=== PATIENT | female | born 1950 | race African-American/Black ===

== ENCOUNTER 2017-06-27 11:23 | Inpatient (IN) ==
[2017-06-27] MEDS ORDERED: methylPREDNISolone SOD SUC 125 MG/2 ML VIAL IV STA (12:01)
[2017-06-27] MEDS ORDERED: CETIRIZINE 10 MG TABLET PO STA (12:01)
[2017-06-27] MEDS ORDERED: FAMOTIDINE 20 MG/2 ML VIAL IV STA (12:01)
[2017-06-27] MEDS ORDERED: methylPREDNISolone SOD SUC 125 MG/2 ML VIAL ONE (12:05)
[2017-06-27] MEDS ORDERED: CETIRIZINE 10 MG TABLET ONE (12:05)
[2017-06-27] MEDS ORDERED: FAMOTIDINE 20 MG/2 ML VIAL IV ONE (12:06)
[2017-06-27 12:08] LABS: Basophils % 0.6 % (0.0-0.8); Eosinophils # 0.5 10*3/uL (0.0-0.87); Eosinophils % 9.6 % (0.00-10.9); Hematocrit 31.8 VOL% (35.7-47.0); Hemoglobin 10.2 GM/DL (12.0-16.0); Immature Granulocytes % 0.8 %; Immature Granulocytes Absolute 0.04 #; Lymphocytes # 1.4 10*3/uL (1.4-4.0); Lymphocytes % 26.5 % (21.3-54.2); Mean Corpuscular HGB Conc 32.1 GM/DL (32-36); Mean Corpuscular Hemoglobin 27 PG (27-34); Mean Corpuscular Volume 82.8 FL (87-102); Monocytes # 0.5 10*3/uL (0.11-0.8); Neutrophils # 2.7 10*3/uL (1.4-7.4); Neutrophils % 52.5 % (38.7-73.9); Platelet Count 291 T/CUMM (130-400); Red Blood Count 3.84 MC/CUMM (3.8-5.5); Red Cell Distribution Width 14.2 % (9.3-17.3); White Blood Count 5.1 T/CUMM (4-12)
--- NOTE | 2017-06-27 12:08 | Emergency Department Note ---
Eron Mendez Brooke, am scribing for, and in the presence of, Luis E Ortiz MD 12:03 . Diana Mendez James D, MD, personally performed the services described in this documentation, ascribed by Vandana Littlejohn in my presence, and it is both accurate and complete . Arrival - Arrival Chief Complaint: Allergic Reaction Stated Complaint: allergic reaction tongue and lips swelling ED Nursing Triage Note: ANGIOEDEMA ONSET THIS MORNING AFTER TAKING HOME MEDS, + DYSPHAGIA Mode of Arrival: Ambulatory Limitations: No Limitations Source: Patient, RN Notes Reviewed Time Seen by Provider: 06/27/17 11:55 - History of Present Illness HPI Narrative: Patient is a 67 year old female who presents to the ED with c/o tongue edema that started this morning. Patient says she got up and took her medications. She says she was talking to her daughter and her daughter told her she wasn't "taking right." Patient says she felt fine then but now feels like her tongue is swollen. She says it is painful to swallow. She also complains of being short of breath. Patient has been scoped, here, in the past. Patient has had a reaction to Lisinopril, in the past, but is no longer taking it. She has PMHx of HTN, depression, migraines, glaucoma, RA, asthma, GERD, and anemia. She does not smoke cigarettes or drink alcohol. Onset (ago): day(s) (1) Allergies/Adverse Reactions: Allergies Allergy/AdvReac Type Severity Reaction Status Date / Time lisinopril Allergy Swelling Verified 06/27/17 11:36 of Lip/Tongue/Throat Home Medications: Home Medications Medication Instructions Recorded Confirmed Type Hydroxychloroquine [Plaquenil] 200 mg PO BID 11/12/16 06/27/17 History Mirtazapine 15 mg PO BEDTIME 11/12/16 06/27/17 History amLODIPine [Norvasc] 10 mg PO DAILY tablet 03/29/17 06/27/17 Rx cloNIDine TAB [Catapres Tab] 0.1 mg PO TID tablet 03/29/17 06/27/17 Rx Aspirin Chew Tab 81 mg PO DAILY 06/27/17 06/27/17 History Metoprolol Succinate 25 mg PO DAILY 06/27/17 06/27/17 History Sertraline [Zoloft] 50 mg PO QAM 06/27/17 06/27/17 History Spironolactone 25 mg PO BID 06/27/17 06/27/17 History Tramadol HCl/Acetaminophen 1 - 2 each PO TID PRN 06/27/17 06/27/17 History [Tramadol-Acetaminophn 37.5-325] Trazodone HCl 150 mg PO BEDTIME 06/27/17 06/27/17 History predniSONE TAB [PredniSONE] 5 mg PO DAILY 06/27/17 06/27/17 History Review of System - Review of System 12 point system: reviewed and no additional remarkable complaints except as stated - Review of System Constitutional: Absent: fever Head/Ears/Nose/Throat: Present: other (tongue edema. Painful to swallow) Respiratory: Present: other (shortness of breath). 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, cataract in left eye.), Glaucoma Endocrine: No history of: Adrenal Disease, Diabetes Mellitus (IDDM), Diabetes Mellitus ( NIDDM), Thyroid Disorder, Endocrine Cancer, Endocrine Problems Rheumatology: History of;: Rheumatoid Arthritis Respiratory: History of: Asthma Gastrointestinal: History of: GERD Musculoskeletal: No history of: Amputation Hematology: History of: Anemia Other: History of: Skin Problems (Patient has vitiligo spots on various spots on body.) - Surgical History Cardiac Surgeries: Sugical HX of: Cardiac Catheterization Thoracic Surgeries: Patient denies;: Organ Transplant, Lobectomy Neurologic Surgeries: Patient denies: Neurologic Surgery HEENT Surgeries: Surgical HX of: Eye Surgery (Right eye), Tonsilectomy & Adenoidectomy Patient denies: Thyroid Surgery Abdominal Surgeries: Patient denies: Abdominal Surgery, Appendectomy, Cholecystectomy, Colonoscopy , Gastric Bypass Surgery, EGD, Hernia Repair Reproductive Surgeries: Surgical HX of;: Dilation and Curettage (Had ectopic in 1976), Hysterectomy Patient denies;: Genitourinary Surgery Orthopedic Surgeries: Patient denies;: Implanted Devices, Orthopedic Surgery, Spinal Surgery, Total Hip Replacement, Total Knee Replacement - Family History Family History: Reports;: Family Diabetes, Family Hypertension Denies;: Family Anesthesia Reaction, Family Cancer, Family Heart Disease, Family Psychiatric Problems, Family Stroke - Social History Smoking Status: Never smoker Exam Vital Signs: Vital Signs Temperature 989.1 F H 06/27/17 12:01 Pulse Rate 83 06/27/17 12:01 Respiratory Rate 16 06/27/17 12:01 Blood Pressure 206/131 06/27/17 12:01 GENERAL: This is a well-nourished well-developed black female in no apparent distress. VITAL SIGNS: Reviewed HEENT: Head is atraumatic and normocephalic. Pupils are equal round react to light. Extraocular movements are intact. Oropharynx is benign with slightly dry mucous membranes. No evidence of plaques or vesicles on the buccal or gingival mucosa. NECK: Neck is soft and supple without tenderness. There are no masses. There is no lymphadenopathy. LUNGS: Lungs are clear to auscultation. Chest rises symmetrically. There is no chest wall tenderness. CV: Heart is regular rate and rhythm without murmurs rubs or gallops. ABDOMEN: Abdomen is soft, nontender to palpation. There are no abdominal abnormal masses palpated. There is no organomegaly. Bowel sounds are present and active. SKIN: Skin is warm and dry. No rash. EXTREMITIES: Patient has full range of motion without tenderness. There is no pedal edema. NEUROLOGIC: Awake alert and oriented. Cranial nerves II through XII are grossly intact. Motor is 5 over 5 in all extremities bilaterally. Course Course Narrative: Patient was given Zyrtec, Solu-Medrol, and Pepcid while in the emergency department. She was also given Apresoline for her hypertension in the emergency department. - Reevaluation(s) Reevaluation #1: Patient does have swelling of her tongue. Time: 13:08 - Consultations Consultation #1: Discussed with hospitalist. Patient will be admitted to their service. Time: 13:30 Results - Labs CBC & BMP: 06/27/17 11:51 06/27/17 11:51 Lab Results: I have reviewed the patients labs Labs: Initial potassium was hemolyzed specimen. This will be repeated. - EKG EKG results: interpreted by ERMD - Impressions EKG: Normal sinus rhythm with rate of 78, ST segment depression inferiorly and laterally. Disposition Clinical Impression: Odynophagia, Essential hypertension, Angioedema of the tongue, UTI (urinary tract infection) Case discussed with: patient Disposition: Still a Patient Condition: Stable Time of Disposition: 13:28
[2017-06-27 12:53] LABS: Apearance,Urine CLEAR (Clear); Bilirubin,Urine Negative (Negative); Blood, Urine Moderate mg/dL (Negative); Glucose,Urine (UA) Negative (Negative); Ketones,Urine Negative (Negative); Nitrite,Urine Negative (Negative); Protein,Urine Negative; RBC,Urine 53 /HPF (0-4); Urine Color Colorless (Yellow); Urine Specific Gravity 1.003 (1.001-1.035); Urine Urobilinogen < 2.0 EU/DL (0.2-1.0); WBC,Urine 11 /HPF (0-6)
[2017-06-27 13:00] LABS: Barbiturates Screen,Urine Negative (Negative); Benzodiazepines Screen,Urine Negative (Negative); Cannabinoid Screen,Urine Negative (Negative); Opiate Screen,Urine Negative (Negative); Phencyclidine Screen,Urine Negative (Negative)
[2017-06-27 13:01] LABS: Potassium 6.8 MMOL/L (3.5-5.1)
[2017-06-27] MEDS ORDERED: cefTRIAXone 1,000 MG in SODIUM CHLORIDE 0.9% 100 ML IV STA (13:06)
[2017-06-27] MEDS ORDERED: cefTRIAXone 1,000 MG VIAL ONE (13:07)
[2017-06-27] MEDS ORDERED: hydrALAZINE 20 MG/1 ML VIAL IV STA (13:29)
[2017-06-27] MEDS ORDERED: hydrALAZINE 20 MG/1 ML VIAL ONE (14:33)
--- NOTE | 2017-06-27 15:02 | EKG Report ---
Stationary ECG Study 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
--- NOTE | 2017-06-27 15:50 | Hospitalist History & Physical ---
<Jemima Green - Last Filed: 06/27/17 15:37> Assessment and Plan - Time spent with patient Time spent with patient: Greater than 30 minutes (1) Angioedema Status: Resolved Assessment and plan: Admit to Hospital Medicine in ICU. Will monitor closely. Will continue steroids. Will discuss with Dr Le for further recommendations. Current Visit: No History of Present Illness Chief complaint: angioedema History of present illness: Ms. Ruzi is a 67 year old black female w/ PMHx of HTN, depression, migraines , glaucoma, RA, asthma, GERD, and anemia. presented to ED for c/o angioedema ( lower lip and tongue swollen). She reports being fine at 8 a.m. but took home medications and laid down and about an hour later she notices her tongue feeling "fat" and her lip "feeling funny". She reports feeling tight in her throat but able to swallow. She denies taking any SHIVAM inhibitors. Denies chest pain, shortness of breath. She does not smoke cigarettes or drink alcohol. In ED : EKG: normal sinus rythym. LAB: H&H 10.2 & 31.8; Electrolytes within normal limits. Urine: shows trace leukicytes, Urine WBC 11; RBC 53. Drug screen negative. After discussion with Dr Otriz in ED and Dr Le with Hospital Medicine, it was agreed to admit to ICU for close monitoring and further evaluation. Will review home medications. Home Medications Medication Instructions Recorded Confirmed Type Hydroxychloroquine [Plaquenil] 200 mg PO BID 11/12/16 06/27/17 History Mirtazapine 15 mg PO BEDTIME 11/12/16 06/27/17 History amLODIPine [Norvasc] 10 mg PO DAILY tablet 03/29/17 06/27/17 Rx cloNIDine TAB [Catapres Tab] 0.1 mg PO TID tablet 03/29/17 06/27/17 Rx Aspirin Chew Tab 81 mg PO DAILY 06/27/17 06/27/17 History Metoprolol Succinate 25 mg PO DAILY 06/27/17 06/27/17 History Sertraline [Zoloft] 50 mg PO QAM 06/27/17 06/27/17 History Spironolactone 25 mg PO BID 06/27/17 06/27/17 History Tramadol HCl/Acetaminophen 1 - 2 each PO TID PRN 06/27/17 06/27/17 History [Tramadol-Acetaminophn 37.5-325] Trazodone HCl 150 mg PO BEDTIME 06/27/17 06/27/17 History predniSONE TAB [PredniSONE] 5 mg PO DAILY 06/27/17 06/27/17 History Allergies Allergy/AdvReac Type Severity Reaction Status Date / Time lisinopril Allergy Swelling Verified 06/27/17 11:36 of Lip/Tongue/Throat Medical,Surgical,& Family Hx - Medical History Cardio: History of: Hypertension Psychological: History of: Depression (Goes to [place].) Neurology: History of: Migraine HEENT: History of: Eye Problem (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, cataract in left eye.), Glaucoma Endocrine: No history of: Adrenal Disease, Diabetes Mellitus (IDDM), Diabetes Mellitus ( NIDDM), Thyroid Disorder, Endocrine Cancer, Endocrine Problems Rheumatology: History of;: Rheumatoid Arthritis Respiratory: History of: Asthma Gastrointestinal: History of: GERD Musculoskeletal: No history of: Amputation Hematology: History of: Anemia Other: History of: Skin Problems (Patient has vitiligo spots on various spots on body.) - Surgical History Cardiac Surgeries: Sugical HX of: Cardiac Catheterization Thoracic Surgeries: Patient denies;: Organ Transplant, Lobectomy Neurologic Surgeries: Patient denies: Neurologic Surgery HEENT Surgeries: Surgical HX of: Eye Surgery (Right eye), Tonsilectomy & Adenoidectomy Patient denies: Thyroid Surgery Abdominal Surgeries: Patient denies: Abdominal Surgery, Appendectomy, Cholecystectomy, Colonoscopy , Gastric Bypass Surgery, EGD, Hernia Repair Reproductive Surgeries: Surgical HX of;: Dilation and Curettage (Had ectopic in 1976), Hysterectomy Patient denies;: Genitourinary Surgery Orthopedic Surgeries: Patient denies;: Implanted Devices, Orthopedic Surgery, Spinal Surgery, Total Hip Replacement, Total Knee Replacement - Family History Family History: Reports;: Family Diabetes, Family Hypertension Denies;: Family Anesthesia Reaction, Family Cancer, Family Heart Disease, Family Psychiatric Problems, Family Stroke - Social History Smoking Status: Never smoker Frequency of Alcohol Use: None Type of Drug Use: None Marital Status: Single Lives With:: Children Functional capacity: uses cane/walker Review of systems: ROS completed and pertinent positives and negatives in the HPI. Exam - Constitutional Vitals: Period Temp Pulse Resp BP Sys/Parker Pulse Ox Last 24 Hr 98.1 F-989.1 F 83-93 16-19 206-206/131-131 General appearance: normal weight, no acute distress - Head Head exam: Present: normal inspection - Eye Eye exam: Present: EOMI Pupils: Present: HECTOR - ENT ENT exam: Present: other (lower lip swollen, tongue swollen without protruding) - Neck Neck exam: Present: normal inspection - Respiratory Respiratory exam: Present: clear to auscultation bilaterally. Absent: stridor, wheezes - Cardiovascular Cardiovascular exam: Present: regular rate and rhythm - GI/Abdominal GI/Abdominal exam: Present: normal bowel sounds, soft. Absent: tenderness, rebound - Extremities Exam Extremities exam: Present: full ROM. Absent: edema - Neurological Exam Neurological exam: Present: alert, oriented X3, CN II-XII intact - Psychiatric Psychiatric exam: Present: normal affect, normal mood - Skin Skin exam: Present: normal color, warm, dry Results - Labs CBC & BMP: 06/27/17 11:51 06/27/17 11:51 Lab Results: I have reviewed the past 24 hour labs <Joaquín Le - Last Filed: 06/27/17 16:35> History of Present Illness History of present illness: Ms. Ruiz is a 67 year old female admitted to the hospital with angioneurotic edema. I have interviewed the patient, examined the patient, reviewed all the available laboratory tests and x-ray results. I agree with the assessment and plans as outlined by the nurse practitioner. I have begun her on intravenous Solu-Cortef. Exam - Constitutional Vitals: Period Temp Pulse Resp BP Sys/Parker Pulse Ox Last 24 Hr 97.8 F-989.1 F 83-93 16-19 182-206/72-131 Results - Labs CBC & BMP: 06/27/17 11:51 06/27/17 11:51
[2017-06-27] MEDS ORDERED: ONDANSETRON 4 MG/2 ML VIAL IV PRN (16:01)
[2017-06-27] MEDS ORDERED: ACETAMINOPHEN 325 MG TABLET PO PRN (16:02)
[2017-06-27] MEDS ORDERED: HYDROmorphone 2 MG/1 ML VIAL IV PRN (16:04)
[2017-06-27] MEDS: HYDROCORTISONE 100 MG VIAL IV SCH (16:19)
[2017-06-27] MEDS: SODIUM CHLORIDE 0.9% 1,000 ML IV SCH (16:37)
[2017-06-27] MEDS: diphenhydrAMINE 50 MG/1 ML VIAL IV SCH (17:39)
[2017-06-28] MEDS: diphenhydrAMINE 50 MG/1 ML VIAL IV SCH ×3 (00:21→12:03)
[2017-06-28] MEDS: HYDROCORTISONE 100 MG VIAL IV SCH ×2 (00:23→08:29)
[2017-06-28] MEDS: SODIUM CHLORIDE 0.9% 1,000 ML IV SCH ×2 (00:27→08:29)
[2017-06-28] MEDS ORDERED: hydrALAZINE 20 MG/1 ML VIAL IV PRN (05:19)
[2017-06-28 05:32] LABS: Hematocrit 32.6 VOL% (35.7-47.0); Hemoglobin 10.6 GM/DL (12.0-16.0); Immature Granulocytes % 0.7 %; Immature Granulocytes Absolute 0.06 #; Lymphocytes # 0.6 10*3/uL (1.4-4.0); Lymphocytes % 7.2 % (21.3-54.2); Mean Corpuscular HGB Conc 32.5 GM/DL (32-36); Mean Corpuscular Hemoglobin 27 PG (27-34); Mean Corpuscular Volume 81.7 FL (87-102); Mean Platelet Volume 11.1 FL (9.6-12.0); Monocytes # 0.2 10*3/uL (0.11-0.8); Monocytes % 1.9 % (1.7-12.7); Neutrophils # 7.5 10*3/uL (1.4-7.4); Neutrophils % 90.2 % (38.7-73.9); Platelet Count 257 T/CUMM (130-400); Red Blood Count 3.99 MC/CUMM (3.8-5.5); Red Cell Distribution Width 14.1 % (9.3-17.3); White Blood Count 8.3 T/CUMM (4-12)
[2017-06-28 06:00] LABS: Calcium 8.8 MG/DL (8.5-10.1); Osmolality,Calculated 277.7 MOS/KG (273-304); Potassium 5.2 MMOL/L (3.5-5.1)
--- NOTE | 2017-06-28 08:47 | Hospitalist Progress Note ---
Assessment and Plan (1) Urinary incontinence Status: Acute Assessment and plan: She has a chronic problem with urinary incontinence. Current Visit: Yes (2) Angioedema Status: Resolved Assessment and plan: Resolved. There has not been an obvious cause of her angioneurotic edema. I will restart her home medications. If 1 of those medications was the cause of her angioneurotic edema, I would expect to see a recurrence of such. Current Visit: No (3) Hyperkalemia Status: Acute Assessment and plan: Her potassium today is 5.2. Her renal function is normal. Current Visit: Yes Hospitalist: Subjective Interval history: Patient was admitted to the hospital yesterday with angioneurotic edema of unknown cause. She has been treated with intravenous Solu-Cortef with complete resolution. I will restart her home medications today and transfer her to the medical floor. Exam - Constitutional Vitals: Period Temp Pulse Resp BP Sys/Parker Pulse Ox Last 24 Hr 97.1 F-989.1 F 83-104 14-28 148-206/61-131 92-100 General appearance: normal weight, no acute distress - Head Head exam: Present: normal inspection - Neck Neck exam: Present: normal inspection - Respiratory Respiratory exam: Present: clear to auscultation bilaterally - Cardiovascular Cardiovascular exam: Present: regular rate and rhythm - GI/Abdominal GI/Abdominal exam: Present: normal bowel sounds, soft, other (No palpable masses or hepatosplenomegaly.) - Extremities Exam Extremities exam: Present: normal inspection - Neurological Exam Neurological exam: Present: alert, oriented X3 - Psychiatric Psychiatric exam: Present: normal affect - Skin Skin exam: Present: normal color, warm, intact Results - Labs CBC & BMP: 06/28/17 05:02 06/28/17 05:02
[2017-06-28] MEDS: cloNIDine 0.1 MG TABLET PO SCH ×3 (09:18→20:36)
[2017-06-28] MEDS: METOPROLOL SUCCINATE XL 25 MG TABLET PO SCH (09:18)
[2017-06-28] MEDS: amLODIPine 10 MG TABLET PO SCH (09:18)
[2017-06-28] MEDS: ASPIRIN CHEW 81 MG TABLET PO SCH (09:19)
[2017-06-28] MEDS: SERTRALINE 50 MG TABLET PO SCH (09:19)
[2017-06-28] MEDS: predniSONE 5 MG TABLET PO SCH (09:21)
[2017-06-28] MEDS ORDERED: MIRTAZAPINE 15 MG TABLET PO SCH (21:00)
[2017-06-29] MEDS: ASPIRIN CHEW 81 MG TABLET PO SCH (09:37)
[2017-06-29] MEDS: predniSONE 5 MG TABLET PO SCH (09:37)
[2017-06-29] MEDS: amLODIPine 10 MG TABLET PO SCH (09:37)
[2017-06-29] MEDS: SERTRALINE 50 MG TABLET PO SCH (09:37)
[2017-06-29] MEDS: cloNIDine 0.1 MG TABLET PO SCH (09:37)
[2017-06-29] MEDS: METOPROLOL SUCCINATE XL 25 MG TABLET PO SCH (09:37)
--- NOTE | 2017-06-29 10:46 | Discharge Summary ---
Hospital Course - Hospital Course Hospital Course: Patient was hospitalized with the acute onset of angioneurotic edema. She had previously experienced a similar such reaction to lisinopril, which she was not taking at the present time. Her medications were stopped at the time of admission. She was treated with intravenous Solu-Cortef. She experienced complete resolution of the angioneurotic edema over the subsequent 24 hours. It was felt that the most likely medication that caused her angioneurotic edema was Plaquenil, which was discontinued. At the time of her discharge she was comfortable with no problems. Diagnosis - Discharge Diagnosis (1) Urinary incontinence Status: Chronic (2) Angioedema Status: Acute (3) Hyperkalemia Status: Acute Discharge Plan - Discharge Data Condition at Discharge: Stable Discharge Diet: advance to your usual diet Activity: resume usual activities as tolerated - Discharge Medications Continue amLODIPine [Norvasc] 10 mg PO DAILY tablet cloNIDine TAB [Catapres Tab] 0.1 mg PO TID tablet predniSONE TAB [PredniSONE] 5 mg PO DAILY Tramadol HCl/Acetaminophen [Tramadol-Acetaminophn 37.5-325] 1 - 2 each PO TID PRN PRN Reason: Pain Sertraline [Zoloft] 50 mg PO QAM Trazodone HCl 150 mg PO BEDTIME Metoprolol Succinate 25 mg PO DAILY Mirtazapine 15 mg PO BEDTIME Aspirin Chew Tab 81 mg PO DAILY Discontinued Spironolactone 25 mg PO BID Hydroxychloroquine [Plaquenil] 200 mg PO BID - Follow Up or Referral - Forms/Instructions Exam - Constitutional Vitals: Period Temp Pulse Resp BP Sys/Parker Pulse Ox Last 24 Hr 97 F-99 F 75-96 16-23 126-177/52-95 92-100 General appearance: normal weight, no acute distress - Head Head exam: Present: normal inspection - Neck Neck exam: Present: normal inspection - Respiratory Respiratory exam: Present: clear to auscultation bilaterally - Cardiovascular Cardiovascular exam: Present: regular rate and rhythm - GI/Abdominal GI/Abdominal exam: Present: normal bowel sounds, soft, other (Nontender with no palpable masses or hepatosplenomegaly.) - Extremities Exam Extremities exam: Present: normal inspection - Neurological Exam Neurological exam: Present: alert, oriented X3 - Psychiatric Psychiatric exam: Present: normal affect - Skin Skin exam: Present: normal color, warm, intact Discharge Results Procedures and tests throughout hospitalization: Pending Orders 06/27/17 Urine Culture Routine 06/27/17 14:50 MRSA Surveillence, Inf Control Routine Labs on day of discharge: Labs from last 24 hours 06/29/17 06/29/17 09:36 07:48 POC Glucose 106 89 Preliminary micro results at discharge 06/27/17 Unknown Urine Culture - Preliminary Urine,Clean Catch No Growth at 24 hours. 06/27/17 14:50 MRSA Surveillance Culture - Preliminary Nares - Both Nares (Mrsa screen) No MRSA isolated. DS: Provider Date of admission: 06/27/17 14:00 Primary care physician: . No PCP Attending physician on admission: Joaquín Le Consults: 06/27/17 15:30 Consult to Pastoral Services [CONS] Routine Comment: Pastoral Screen: Request Dog Food Dough Mixer Visit Pastoral Screen Source of Request: Patient Discharging clinician: Joaquín Le
[2017-06-29 14:55] VITALS: BP 137/66
== END 2017-06-29 15:32 | disposition home or self-care (01) | DRG 916 ==
LOC: N.ED 11:23 → SUATTDRO 14:00 → N.EDINP 14:00 → N.CC 14:50 → N.4E 06-28 21:49

== ENCOUNTER 2020-02-06 05:15 | Inpatient (IN) ==
[2020-02-06] MEDS ORDERED: VECURONIUM 10 MG VIAL IV ONE (05:28)
[2020-02-06] MEDS ORDERED: ETOMIDATE 20 MG/10 ML VIAL IV ONE (05:28)
[2020-02-06] MEDS ORDERED: ACETAMINOPHEN 650 MG SUPP RECTAL ONE (05:33)
[2020-02-06] MEDS ORDERED: PIPERACILLIN/TAZOBACTAM 3,375 MG in SODIUM CHLORIDE 0.9% 100 ML IV STA (05:44)
[2020-02-06] MEDS ORDERED: methylPREDNISolone SOD SUC 125 MG/2 ML VIAL IV STA (05:44)
[2020-02-06] MEDS ORDERED: ALBUTEROL/IPRATROPIUM 3 ML NEB RESP TX STA (05:44)
[2020-02-06] MEDS ORDERED: SODIUM CHLORIDE 0.9% 1,000 ML IV STA (05:44)
[2020-02-06] MEDS ORDERED: ACETAMINOPHEN 650 MG SUPP RECTAL STA (05:46)
[2020-02-06 05:57] LABS: ABG Base Excess 3.9 MMOL/L (-2.5-2.5); ABG HCO3 27.9 MMOL/L (20-26); ABG Oxygen Saturation 99.6 % (95-100); ABG PCO2 39.7 MM HG (35-48); ABG PH 7.456 (7.35-7.45); ABG TCO2 24.6 MMOL/L (23-27); Allen Test Positive; Pt O2 Delivery Device Ventilator
[2020-02-06 06:00] LABS: Apearance,Urine CLEAR (Clear); Bilirubin,Urine Negative (Negative); Blood, Urine Negative (Negative); Glucose,Urine (UA) Negative (Negative); Hyaline Casts,Urine 1 /LPF (0-3); Ketones,Urine Negative (Negative); Mucus,Urine Occasional /LPF (Occasional); Nitrite,Urine Negative (Negative); Protein,Urine Negative; RBC,Urine 1 /HPF (0-4); Squamous Epithelial Cell,Urine Occasional /HPF (0-10); Urine Color Yellow (Yellow); Urine Specific Gravity 1.012 (1.001-1.035); Urine Urobilinogen < 2.0 EU/DL (0.2-1.0); WBC,Urine 1 /HPF (0-6)
[2020-02-06] MEDS ORDERED: METOPROLOL TARTRATE 5 MG/5 ML VIAL IV STA (06:01)
[2020-02-06 06:04] LABS: Alanine Aminotransferase < 9 U/L (13-56); Albumin 1.8 G/DL (3.4-5.0); Alkaline Phosphatase 84 U/L (45-117); Aspartate Amino Transferase 46 U/L (0-37); Blood Urea Nitrogen 15 MG/DL (7-18); Calcium 8.9 MG/DL (8.5-10.1); Estimated Glom Filtration Rate 0 ML/MIN; Glucose 125 MG/DL (74-106); INR 1.1; Osmolality,Calculated 267.4 MOS/KG (273-304); PT Patient Result 11.4 SECS (9.6-12.2); Total Protein 6.1 G/DL (6.4-8.3)
[2020-02-06 06:06] LABS: Basophils % 0.4 % (0.0-0.8); Eosinophils % 0.4 % (0.00-10.9); Hematocrit 33.3 VOL% (35.7-47.0); Hemoglobin 10.5 GM/DL (12.0-16.0); Immature Granulocytes % 1.2 %; Immature Granulocytes Absolute 0.09 #; Lymphocytes # 0.9 10*3/uL (1.4-4.0); Lymphocytes % 12.5 % (21.3-54.2); Mean Corpuscular HGB Conc 31.5 GM/DL (32-36); Mean Corpuscular Volume 88.3 FL (87-102); Mean Platelet Volume 10.1 FL (9.6-12.0); Monocytes % 5.6 % (1.7-12.7); Neutrophils % 79.9 % (38.7-73.9); Platelet Count 423 T/CUMM (130-400); Red Blood Count 3.77 MC/CUMM (3.8-5.5); Red Cell Distribution Width 14.3 % (9.3-17.3); White Blood Count 7.4 T/CUMM (4-12)
[2020-02-06] MEDS ORDERED: diphenhydrAMINE CAP 25 MG CAPSULE PO PRN (06:51)
[2020-02-06] MEDS ORDERED: NICOTINE 21 MG/24 HR PATCH TRANSDERM PRN (06:51)
[2020-02-06] MEDS ORDERED: PROMETHAZINE 25 MG/1 ML VIAL IM PRN (06:51)
[2020-02-06] MEDS ORDERED: ALBUTEROL 2.5 MG/3 ML NEB RESP TX PRN (06:51)
[2020-02-06] MEDS: ALBUTEROL/IPRATROPIUM 3 ML NEB RESP TX SCH ×3 (07:12→19:17)
[2020-02-06] MEDS: VANCOMYCIN INJ 500 MG in SODIUM CHLORIDE 0.9% 100 ML IV SCH ×2 (09:52→20:49)
[2020-02-06] MEDS: PANTOPRAZOLE 40 MG VIAL IV SCH (09:52)
[2020-02-06] MEDS: ENOXAPARIN 40 MG/0.4 ML SYRINGE SUBCUT SCH (09:53)
[2020-02-06] MEDS: LEVOFLOXACIN INJ 750 MG in PREMIX 1 EACH IV SCH (09:53)
[2020-02-06] MEDS: SODIUM CHLORIDE 0.9% 1,000 ML IV SCH ×2 (09:55→17:02)
[2020-02-06] MEDS ORDERED: DEXTROSE 10% 250 ML BAG IV PRN (10:12)
[2020-02-06] MEDS ORDERED: GLUCAGON 1 MG VIAL IM PRN (10:12)
[2020-02-06] MEDS ORDERED: MAGNESIUM SULF RIDER 2 GM in PREMIX 1 EACH IV PRN (10:12)
[2020-02-06] MEDS ORDERED: MAGNESIUM SULF RIDER 4 GM in PREMIX 1 EACH IV PRN (10:12)
[2020-02-06 10:35] LABS: Alanine Aminotransferase < 9 U/L (13-56); Albumin 1.6 G/DL (3.4-5.0); Alkaline Phosphatase 79 U/L (45-117); Aspartate Amino Transferase 40 U/L (0-37); Blood Urea Nitrogen 16 MG/DL (7-18); Calcium 8.7 MG/DL (8.5-10.1); Estimated Glom Filtration Rate 64 ML/MIN; Glucose 107 MG/DL (74-106); Osmolality,Calculated 270.1 MOS/KG (273-304); Total Protein 5.8 G/DL (6.4-8.3)
[2020-02-06] MEDS: SODIUM CHLOR 0.9% KCL 40 MEQ 40 MEQ/1,000 ML BAG IV SCH ×2 (11:44→21:01)
[2020-02-06] MEDS: INSULIN LISPRO 100 UNIT/ML SUBCUT SCH ×3 (11:59→20:54)
[2020-02-06] MEDS: PIPERACILLIN/TAZOBACTAM 3,375 MG in SODIUM CHLORIDE 0.9% 100 ML IV SCH ×2 (14:23→22:25)
[2020-02-06] MEDS: methylPREDNISolone SOD SUC 40 MG/1 ML VIAL IV SCH ×2 (17:02→23:50)
[2020-02-06] MEDS: POTASSIUM CHLORIDE 20 MEQ/15 ML UDCUP PER TUBE PRN ×4 (17:02→23:51)
[2020-02-06] MEDS ORDERED: POTASSIUM CHLORIDE 20 MEQ/15 ML UDCUP PER TUBE ONE (18:55)
[2020-02-06] MEDS ORDERED: SODIUM CHLORIDE 0.9% 1,500 ML IV ONE (18:56)
[2020-02-06 20:15] LABS: Calcium 8.4 MG/DL (8.5-10.1); Osmolality,Calculated 273.8 MOS/KG (273-304)
[2020-02-06 23:33] LABS: Calcium 8.3 MG/DL (8.5-10.1); Osmolality,Calculated 276.7 MOS/KG (273-304)
[2020-02-07] MEDS: ALBUTEROL/IPRATROPIUM 3 ML NEB RESP TX SCH (01:36)
[2020-02-07 02:16] LABS: Basophils % 0.2 % (0.0-0.8); Hematocrit 24.5 VOL% (35.7-47.0); Immature Granulocytes % 1.6 %; Immature Granulocytes Absolute 0.23 #; Lymphocytes # 0.8 10*3/uL (1.4-4.0); Lymphocytes % 5.3 % (21.3-54.2); Mean Corpuscular HGB Conc 32.7 GM/DL (32-36); Mean Corpuscular Volume 83.9 FL (87-102); Monocytes % 4.1 % (1.7-12.7); Neutrophils % 88.8 % (38.7-73.9); Platelet Count 377 T/CUMM (130-400); Red Blood Count 2.92 MC/CUMM (3.8-5.5); Red Cell Distribution Width 14.3 % (9.3-17.3); White Blood Count 14.7 T/CUMM (4-12)
[2020-02-07 02:41] LABS: Alanine Aminotransferase < 9 U/L (13-56); Albumin 1.4 G/DL (3.4-5.0); Alkaline Phosphatase 58 U/L (45-117); Aspartate Amino Transferase 26 U/L (0-37); Blood Urea Nitrogen 16 MG/DL (7-18); Calcium 7.8 MG/DL (8.5-10.1); Estimated Glom Filtration Rate 64 ML/MIN; Glucose 114 MG/DL (74-106); Osmolality,Calculated 278.5 MOS/KG (273-304); Total Protein 5.3 G/DL (6.4-8.3)
[2020-02-07] MEDS: SODIUM CHLORIDE 0.9% 1,000 ML IV SCH ×4 (03:30→22:29)
[2020-02-07] MEDS: ALBUTEROL 2.5 MG/3 ML NEB RESP TX SCH ×5 (04:38→19:10)
[2020-02-07] MEDS: PIPERACILLIN/TAZOBACTAM 3,375 MG in SODIUM CHLORIDE 0.9% 100 ML IV SCH ×3 (05:51→22:41)
[2020-02-07] MEDS: ENOXAPARIN 40 MG/0.4 ML SYRINGE SUBCUT SCH (06:01)
[2020-02-07] MEDS ORDERED: SODIUM CHLORIDE 0.9% 500 ML IV ONE ×2 (06:12→15:13)
[2020-02-07] MEDS: INSULIN LISPRO 100 UNIT/ML SUBCUT SCH ×3 (06:27→19:16)
[2020-02-07 08:40] LABS: Calcium 8.1 MG/DL (8.5-10.1); Osmolality,Calculated 279.4 MOS/KG (273-304)
[2020-02-07] MEDS: PANTOPRAZOLE 40 MG VIAL IV SCH (09:04)
[2020-02-07] MEDS: methylPREDNISolone SOD SUC 40 MG/1 ML VIAL IV SCH ×2 (09:04→14:36)
[2020-02-07] MEDS: VANCOMYCIN INJ 500 MG in SODIUM CHLORIDE 0.9% 100 ML IV SCH ×2 (09:07→21:33)
[2020-02-07 09:54] LABS: ABG Base Excess -4.2 MMOL/L (-2.5-2.5); ABG Oxygen Saturation 99.7 % (95-100); ABG PCO2 25.8 MM HG (35-48); ABG TCO2 16.3 MMOL/L (23-27)
[2020-02-07] MEDS: LEVOFLOXACIN INJ 750 MG in PREMIX 1 EACH IV SCH (10:20)
[2020-02-07 11:53] LABS: Calcium 8.2 MG/DL (8.5-10.1); Osmolality,Calculated 279.4 MOS/KG (273-304)
[2020-02-08] MEDS: ALBUTEROL 2.5 MG/3 ML NEB RESP TX SCH ×2 (00:09→07:08)
[2020-02-08] MEDS: INSULIN LISPRO 100 UNIT/ML SUBCUT SCH ×4 (00:18→19:48)
[2020-02-08] MEDS: methylPREDNISolone SOD SUC 40 MG/1 ML VIAL IV SCH ×5 (00:42→22:40)
[2020-02-08] MEDS: SODIUM CHLORIDE 0.9% 1,000 ML IV SCH ×3 (00:53→21:24)
[2020-02-08 05:05] LABS: Basophils % 0.1 % (0.0-0.8); Hematocrit 25.6 VOL% (35.7-47.0); Immature Granulocytes % 3.7 %; Immature Granulocytes Absolute 0.58 #; Lymphocytes # 0.4 10*3/uL (1.4-4.0); Lymphocytes % 2.8 % (21.3-54.2); Mean Corpuscular HGB Conc 31.3 GM/DL (32-36); Mean Corpuscular Volume 88.9 FL (87-102); Mean Platelet Volume 9.9 FL (9.6-12.0); Monocytes % 4.3 % (1.7-12.7); Neutrophils % 89.1 % (38.7-73.9); Platelet Count 430 T/CUMM (130-400); Red Blood Count 2.88 MC/CUMM (3.8-5.5); Red Cell Distribution Width 14.6 % (9.3-17.3); White Blood Count 15.6 T/CUMM (4-12)
[2020-02-08] MEDS: PIPERACILLIN/TAZOBACTAM 3,375 MG in SODIUM CHLORIDE 0.9% 100 ML IV SCH ×3 (05:29→22:20)
[2020-02-08 05:31] LABS: Band Neutrophils 3 % (0-10); Burr Cells Few; Lymphocytes 1 % (20-55); Metamyelocytes 1 %; Segmented Neutrophils 90 % (50-85); Total Cells Counted 100
[2020-02-08 05:32] LABS: Acanthocytes Few; Hypochromasia 1+; Microcytosis Slight; Polychromasia Slight; Target Cells Slight
[2020-02-08 05:33] LABS: Platelet Estimate Increased
[2020-02-08 05:57] LABS: Albumin 1.7 G/DL (3.4-5.0); Bilirubin,Total 0.8 MG/DL (0.2-1.0); Calcium 8.3 MG/DL (8.5-10.1); Osmolality,Calculated 281.3 MOS/KG (273-304); Total Protein 5.7 G/DL (6.4-8.3)
[2020-02-08] MEDS: ENOXAPARIN 40 MG/0.4 ML SYRINGE SUBCUT SCH (06:11)
[2020-02-08] MEDS: VANCOMYCIN INJ 750 MG in SODIUM CHLORIDE 0.9% 250 ML IV SCH ×2 (08:56→21:33)
[2020-02-08] MEDS: PANTOPRAZOLE 40 MG VIAL IV SCH (08:56)
[2020-02-08] MEDS ORDERED: ALBUTEROL 2.5 MG/3 ML NEB RESP TX PRN (10:33)
[2020-02-08] MEDS: LEVOFLOXACIN INJ 750 MG in PREMIX 1 EACH IV SCH (11:24)
[2020-02-08] MEDS: DULoxetine 30 MG CAPSULE PO SCH (21:17)
[2020-02-08] MEDS: MIRTAZAPINE 30 MG TABLET PO SCH (21:17)
[2020-02-09] MEDS: INSULIN LISPRO 100 UNIT/ML SUBCUT SCH ×4 (00:36→19:23)
[2020-02-09] MEDS: carvediloL 3.125 MG TABLET PO SCH ×2 (05:14→16:54)
[2020-02-09] MEDS: SODIUM CHLORIDE 0.9% 1,000 ML IV SCH ×2 (05:14→21:37)
[2020-02-09] MEDS: PIPERACILLIN/TAZOBACTAM 3,375 MG in SODIUM CHLORIDE 0.9% 100 ML IV SCH ×3 (05:14→23:34)
[2020-02-09] MEDS: ENOXAPARIN 40 MG/0.4 ML SYRINGE SUBCUT SCH (06:03)
[2020-02-09 06:11] LABS: Basophils # 0.1 10*3/uL (0.0-0.2); Basophils % 0.5 % (0.0-0.8); Hematocrit 33.7 VOL% (35.7-47.0); Immature Granulocytes % 5.7 %; Immature Granulocytes Absolute 1.17 #; Lymphocytes # 0.6 10*3/uL (1.4-4.0); Lymphocytes % 2.7 % (21.3-54.2); Mean Corpuscular HGB Conc 31.2 GM/DL (32-36); Mean Corpuscular Volume 88.5 FL (87-102); Mean Platelet Volume 9.6 FL (9.6-12.0); Monocytes % 4.1 % (1.7-12.7); Red Cell Distribution Width 15.2 % (9.3-17.3)
[2020-02-09 06:26] LABS: Bilirubin,Total 0.8 MG/DL (0.2-1.0); Calcium 8.7 MG/DL (8.5-10.1); Osmolality,Calculated 281.3 MOS/KG (273-304); Total Protein 6.6 G/DL (6.4-8.3)
[2020-02-09 06:32] LABS: Hemoglobin 10.5 GM/DL (12.0-16.0); Red Blood Count 3.81 MC/CUMM (3.8-5.5); White Blood Count 20.5 T/CUMM (4-12)
[2020-02-09 06:33] LABS: Platelet Count 593 T/CUMM (130-400)
[2020-02-09 07:27] LABS: Band Neutrophils 2 % (0-10); Hypochromasia 1+; Lymphocytes 2 % (20-55); Segmented Neutrophils 90 % (50-85); Total Cells Counted 100
[2020-02-09 07:28] LABS: Microcytosis Slight; Ovalocytes Slight; Target Cells Slight
[2020-02-09 07:29] LABS: Burr Cells Slight; Platelet Estimate Increased
[2020-02-09] MEDS: methylPREDNISolone SOD SUC 40 MG/1 ML VIAL IV SCH ×3 (08:50→22:32)
[2020-02-09] MEDS: METOPROLOL SUCCINATE XL 50 MG TABLET PO SCH (08:52)
[2020-02-09] MEDS: PANTOPRAZOLE 40 MG VIAL IV SCH (08:57)
[2020-02-09] MEDS ORDERED: cloNIDine 0.1 MG TABLET PO SCH (09:00)
[2020-02-09] MEDS: VANCOMYCIN INJ 750 MG in SODIUM CHLORIDE 0.9% 250 ML IV SCH ×2 (09:21→21:36)
[2020-02-09] MEDS: POTASSIUM CHLORIDE 20 MEQ TABLET PO SCH (09:22)
[2020-02-09] MEDS: MAGNESIUM OXIDE 400 MG TABLET PO SCH (09:22)
[2020-02-09] MEDS: FOLIC ACID 1 MG TABLET PO SCH (09:22)
[2020-02-09] MEDS: ASPIRIN EC 81 MG TABLET PO SCH (09:22)
[2020-02-09] MEDS: ALBUTEROL/IPRATROPIUM 3 ML NEB RESP TX SCH ×3 (11:11→19:40)
[2020-02-09] MEDS: LEVOFLOXACIN INJ 750 MG in PREMIX 1 EACH IV SCH (11:21)
[2020-02-09] MEDS: BUDESONIDE/FORMOTEROL 160-4.5 INHALER 6 GM INH SCH ×2 (14:26→22:18)
[2020-02-09] MEDS: MIRTAZAPINE 30 MG TABLET PO SCH (21:36)
[2020-02-09] MEDS: DULoxetine 30 MG CAPSULE PO SCH (21:36)
[2020-02-10] MEDS: INSULIN LISPRO 100 UNIT/ML SUBCUT SCH ×4 (00:22→18:01)
[2020-02-10] MEDS: ALBUTEROL/IPRATROPIUM 3 ML NEB RESP TX SCH ×4 (00:39→11:10)
[2020-02-10] MEDS: SODIUM CHLORIDE 0.9% 1,000 ML IV SCH (02:51)
[2020-02-10 04:50] LABS: Basophils # 0.1 10*3/uL (0.0-0.2); Basophils % 0.7 % (0.0-0.8); Hemoglobin 10.9 GM/DL (12.0-16.0); Immature Granulocytes % 5.8 %; Immature Granulocytes Absolute 1.03 #; Lymphocytes # 0.7 10*3/uL (1.4-4.0); Lymphocytes % 3.7 % (21.3-54.2); Mean Corpuscular HGB Conc 30.3 GM/DL (32-36); Mean Corpuscular Volume 90.7 FL (87-102); Mean Platelet Volume 9.6 FL (9.6-12.0); Monocytes % 5.1 % (1.7-12.7); Neutrophils % 84.7 % (38.7-73.9); Platelet Count 502 T/CUMM (130-400); Red Blood Count 3.97 MC/CUMM (3.8-5.5); Red Cell Distribution Width 15.2 % (9.3-17.3); White Blood Count 17.8 T/CUMM (4-12)
[2020-02-10] MEDS: PIPERACILLIN/TAZOBACTAM 3,375 MG in SODIUM CHLORIDE 0.9% 100 ML IV SCH ×3 (04:59→23:52)
[2020-02-10 05:11] LABS: Albumin 1.8 G/DL (3.4-5.0); Bilirubin,Total 0.8 MG/DL (0.2-1.0); Calcium 8.6 MG/DL (8.5-10.1); Osmolality,Calculated 292.6 MOS/KG (273-304); Total Protein 5.6 G/DL (6.4-8.3)
[2020-02-10] MEDS: ENOXAPARIN 40 MG/0.4 ML SYRINGE SUBCUT SCH (05:59)
[2020-02-10 07:14] LABS: Band Neutrophils 3 % (0-10); Hypochromasia 1+; Lymphocytes 3 % (20-55); Segmented Neutrophils 91 % (50-85); Total Cells Counted 100
[2020-02-10 07:15] LABS: Burr Cells Slight; Microcytosis Slight; Platelet Estimate Increased
[2020-02-10] MEDS ORDERED: METHOTREXATE 2.5 MG TABLET PO SCH (09:00)
[2020-02-10] MEDS: methylPREDNISolone SOD SUC 40 MG/1 ML VIAL IV SCH ×3 (09:13→23:53)
[2020-02-10] MEDS: FOLIC ACID 1 MG TABLET PO SCH (09:15)
[2020-02-10] MEDS: ASPIRIN EC 81 MG TABLET PO SCH (09:15)
[2020-02-10] MEDS: MAGNESIUM OXIDE 400 MG TABLET PO SCH (09:16)
[2020-02-10] MEDS: METOPROLOL SUCCINATE XL 50 MG TABLET PO SCH (09:16)
[2020-02-10] MEDS: POTASSIUM CHLORIDE 20 MEQ TABLET PO SCH (09:16)
[2020-02-10] MEDS: PANTOPRAZOLE 40 MG VIAL IV SCH (09:17)
[2020-02-10] MEDS: BUDESONIDE/FORMOTEROL 160-4.5 INHALER 6 GM INH SCH ×2 (09:17→20:26)
[2020-02-10] MEDS: VANCOMYCIN INJ 750 MG in SODIUM CHLORIDE 0.9% 250 ML IV SCH ×2 (09:21→10:00)
[2020-02-10] MEDS: LEVOFLOXACIN INJ 750 MG in PREMIX 1 EACH IV SCH (11:43)
[2020-02-10] MEDS: DULoxetine 30 MG CAPSULE PO SCH (20:25)
[2020-02-10] MEDS: MIRTAZAPINE 30 MG TABLET PO SCH (20:25)
[2020-02-11] MEDS: INSULIN LISPRO 100 UNIT/ML SUBCUT SCH ×5 (00:34→23:50)
[2020-02-11] MEDS: SODIUM CHLORIDE 0.9% 1,000 ML IV SCH (00:35)
[2020-02-11] MEDS: PIPERACILLIN/TAZOBACTAM 3,375 MG in SODIUM CHLORIDE 0.9% 100 ML IV SCH ×2 (05:34→17:45)
[2020-02-11] MEDS: ENOXAPARIN 40 MG/0.4 ML SYRINGE SUBCUT SCH ×2 (05:35→06:05)
[2020-02-11 06:03] LABS: Basophils # 0.1 10*3/uL (0.0-0.2); Basophils % 0.5 % (0.0-0.8); Hematocrit 33.2 VOL% (35.7-47.0); Hemoglobin 10.4 GM/DL (12.0-16.0); Immature Granulocytes % 4.8 %; Lymphocytes # 0.5 10*3/uL (1.4-4.0); Lymphocytes % 3.3 % (21.3-54.2); Mean Corpuscular HGB Conc 31.3 GM/DL (32-36); Mean Corpuscular Volume 87.6 FL (87-102); Mean Platelet Volume 9.9 FL (9.6-12.0); Monocytes % 4.8 % (1.7-12.7); NRBC # 0.02 10*3/uL; Neutrophils % 86.6 % (38.7-73.9); Platelet Count 405 T/CUMM (130-400); Red Blood Count 3.79 MC/CUMM (3.8-5.5); Red Cell Distribution Width 15.2 % (9.3-17.3); White Blood Count 16.5 T/CUMM (4-12)
[2020-02-11 06:29] LABS: Albumin 1.9 G/DL (3.4-5.0); Bilirubin,Total 0.6 MG/DL (0.2-1.0); Calcium 8.9 MG/DL (8.5-10.1); Osmolality,Calculated 287.8 MOS/KG (273-304); Total Protein 5.7 G/DL (6.4-8.3)
[2020-02-11 06:51] LABS: Lymphocytes 3 % (20-55); Segmented Neutrophils 94 % (50-85); Total Cells Counted 100
[2020-02-11 06:52] LABS: Hypochromasia Slight; Ovalocytes Slight; Platelet Estimate Adequate
[2020-02-11 06:53] LABS: Microcytosis Slight
[2020-02-11] MEDS ORDERED: POTASSIUM CHLORIDE RIDER 10 MEQ in PREMIX 1 EACH IV PRN (07:27)
[2020-02-11] MEDS ORDERED: METOPROLOL TARTRATE 5 MG/5 ML VIAL IV ONE ×2 (08:15)
[2020-02-11] MEDS: methylPREDNISolone SOD SUC 40 MG/1 ML VIAL IV SCH ×2 (08:38→15:02)
[2020-02-11] MEDS: PANTOPRAZOLE 40 MG VIAL IV SCH (08:41)
[2020-02-11] MEDS: POTASSIUM CHLORIDE 20 MEQ TABLET PO SCH (08:43)
[2020-02-11] MEDS: ASPIRIN EC 81 MG TABLET PO SCH (08:43)
[2020-02-11] MEDS: MAGNESIUM OXIDE 400 MG TABLET PO SCH (08:43)
[2020-02-11] MEDS: BUDESONIDE/FORMOTEROL 160-4.5 INHALER 6 GM INH SCH ×2 (08:43→20:56)
[2020-02-11] MEDS: FOLIC ACID 1 MG TABLET PO SCH (08:43)
[2020-02-11] MEDS: METOPROLOL SUCCINATE XL 50 MG TABLET PO SCH (08:44)
[2020-02-11] MEDS: LEVOFLOXACIN INJ 750 MG in PREMIX 1 EACH IV SCH (13:27)
[2020-02-11] MEDS: POTASSIUM CHLORIDE 20 MEQ/15 ML UDCUP PER TUBE PRN ×2 (15:02→20:46)
[2020-02-11] MEDS: METOPROLOL TARTRATE 5 MG/5 ML VIAL IV PRN (18:01)
[2020-02-11] MEDS: DULoxetine 30 MG CAPSULE PO SCH (20:46)
[2020-02-11] MEDS: MIRTAZAPINE 30 MG TABLET PO SCH (20:46)
[2020-02-12] MEDS: SODIUM CHLORIDE 0.9% 1,000 ML IV SCH (01:25)
[2020-02-12] MEDS: PIPERACILLIN/TAZOBACTAM 3,375 MG in SODIUM CHLORIDE 0.9% 100 ML IV SCH ×3 (01:26→17:17)
[2020-02-12] MEDS: hydrALAZINE 20 MG/1 ML VIAL IV PRN (04:48)
[2020-02-12 05:17] LABS: Basophils # 0.1 10*3/uL (0.0-0.2); Basophils % 0.4 % (0.0-0.8); Hematocrit 31.6 VOL% (35.7-47.0); Hemoglobin 9.7 GM/DL (12.0-16.0); Immature Granulocytes % 4.8 %; Immature Granulocytes Absolute 0.76 #; Lymphocytes # 0.7 10*3/uL (1.4-4.0); Lymphocytes % 4.4 % (21.3-54.2); Mean Corpuscular HGB Conc 30.7 GM/DL (32-36); Mean Platelet Volume 9.9 FL (9.6-12.0); Monocytes % 7.2 % (1.7-12.7); NRBC # 0.03 10*3/uL; Neutrophils % 83.2 % (38.7-73.9); Platelet Count 322 T/CUMM (130-400); Red Blood Count 3.59 MC/CUMM (3.8-5.5); White Blood Count 15.8 T/CUMM (4-12)
[2020-02-12 05:48] LABS: Bilirubin,Total 0.9 MG/DL (0.2-1.0); Calcium 8.7 MG/DL (8.5-10.1); Osmolality,Calculated 288.7 MOS/KG (273-304); Total Protein 5.3 G/DL (6.4-8.3)
[2020-02-12 06:06] LABS: Hypochromasia 1+; Lymphocytes 2 % (20-55); Microcytosis Slight; Nucleated Red Blood Cells 1 (0-5); Ovalocytes Slight; Platelet Estimate Adequate; Segmented Neutrophils 90 % (50-85); Total Cells Counted 100
[2020-02-12] MEDS: methylPREDNISolone SOD SUC 40 MG/1 ML VIAL IV SCH ×2 (06:12→17:17)
[2020-02-12] MEDS: ENOXAPARIN 40 MG/0.4 ML SYRINGE SUBCUT SCH (06:12)
[2020-02-12] MEDS: INSULIN LISPRO 100 UNIT/ML SUBCUT SCH ×4 (06:18→23:58)
[2020-02-12] MEDS: METOPROLOL TARTRATE 5 MG/5 ML VIAL IV PRN (06:47)
[2020-02-12] MEDS: POTASSIUM CHLORIDE 20 MEQ/15 ML UDCUP PER TUBE PRN ×3 (07:38→14:52)
[2020-02-12] MEDS: POTASSIUM CHLORIDE 20 MEQ TABLET PO SCH (09:00)
[2020-02-12] MEDS: METOPROLOL TARTRATE 50 MG TABLET PO SCH (09:00)
[2020-02-12] MEDS: ASPIRIN EC 81 MG TABLET PO SCH (09:00)
[2020-02-12] MEDS: MAGNESIUM OXIDE 400 MG TABLET PO SCH (09:01)
[2020-02-12] MEDS: PANTOPRAZOLE 40 MG VIAL IV SCH (09:01)
[2020-02-12] MEDS: BUDESONIDE/FORMOTEROL 160-4.5 INHALER 6 GM INH SCH ×2 (09:03→21:16)
[2020-02-12] MEDS: FOLIC ACID 1 MG TABLET PO SCH (09:18)
[2020-02-12] MEDS: LEVOFLOXACIN INJ 750 MG in PREMIX 1 EACH IV SCH (12:12)
[2020-02-12] MEDS: PANTOPRAZOLE 40 MG TABLET PO SCH (17:16)
[2020-02-12] MEDS: MIRTAZAPINE 30 MG TABLET PO SCH (21:03)
[2020-02-12] MEDS: DULoxetine 30 MG CAPSULE PO SCH (21:03)
[2020-02-13] MEDS: PIPERACILLIN/TAZOBACTAM 3,375 MG in SODIUM CHLORIDE 0.9% 100 ML IV SCH ×3 (02:00→17:48)
[2020-02-13 06:02] LABS: Basophils # 0.1 10*3/uL (0.0-0.2); Basophils % 0.4 % (0.0-0.8); Hematocrit 32.1 VOL% (35.7-47.0); Immature Granulocytes % 6.3 %; Immature Granulocytes Absolute 1.01 #; Lymphocytes # 0.7 10*3/uL (1.4-4.0); Lymphocytes % 4.3 % (21.3-54.2); Mean Corpuscular HGB Conc 31.2 GM/DL (32-36); Mean Corpuscular Volume 87.2 FL (87-102); Mean Platelet Volume 9.5 FL (9.6-12.0); Monocytes % 6.3 % (1.7-12.7); NRBC # 0.05 10*3/uL; Neutrophils % 82.7 % (38.7-73.9); Platelet Count 332 T/CUMM (130-400); Red Blood Count 3.68 MC/CUMM (3.8-5.5); Red Cell Distribution Width 15.6 % (9.3-17.3); White Blood Count 16.1 T/CUMM (4-12)
[2020-02-13] MEDS: ENOXAPARIN 40 MG/0.4 ML SYRINGE SUBCUT SCH (06:07)
[2020-02-13] MEDS: methylPREDNISolone SOD SUC 40 MG/1 ML VIAL IV SCH (06:07)
[2020-02-13] MEDS: INSULIN LISPRO 100 UNIT/ML SUBCUT SCH ×4 (06:19→23:27)
[2020-02-13] MEDS: SODIUM CHLORIDE 0.9% 1,000 ML IV SCH ×2 (06:19→16:01)
[2020-02-13 06:22] LABS: Hypochromasia 1+; Lymphocytes 7 % (20-55); Microcytosis Slight; Nucleated Red Blood Cells 1 (0-5); Ovalocytes Slight; Platelet Estimate Adequate; Segmented Neutrophils 87 % (50-85); Total Cells Counted 100
[2020-02-13 06:39] LABS: Osmolality,Calculated 290.6 MOS/KG (273-304)
[2020-02-13] MEDS: MAGNESIUM OXIDE 400 MG TABLET PO SCH (10:15)
[2020-02-13] MEDS: POTASSIUM CHLORIDE 20 MEQ TABLET PO SCH (10:16)
[2020-02-13] MEDS: PANTOPRAZOLE 40 MG TABLET PO SCH ×2 (10:16→16:02)
[2020-02-13] MEDS: ASPIRIN EC 81 MG TABLET PO SCH (10:16)
[2020-02-13] MEDS: METOPROLOL TARTRATE 50 MG TABLET PO SCH (10:16)
[2020-02-13] MEDS: FOLIC ACID 1 MG TABLET PO SCH (10:16)
[2020-02-13] MEDS: BUDESONIDE/FORMOTEROL 160-4.5 INHALER 6 GM INH SCH ×2 (10:18→20:58)
[2020-02-13] MEDS: DULoxetine 30 MG CAPSULE PO SCH (20:57)
[2020-02-13] MEDS: MIRTAZAPINE 30 MG TABLET PO SCH (20:58)
[2020-02-13] MEDS: ERYTHROMYCIN 0.5% OPHT OINT 3.5 GM TUBE RIGHT EYE SCH (20:59)
[2020-02-14] MEDS: PIPERACILLIN/TAZOBACTAM 3,375 MG in SODIUM CHLORIDE 0.9% 100 ML IV SCH ×3 (02:40→19:24)
[2020-02-14] MEDS: INSULIN LISPRO 100 UNIT/ML SUBCUT SCH ×3 (05:33→19:24)
[2020-02-14] MEDS: ENOXAPARIN 40 MG/0.4 ML SYRINGE SUBCUT SCH (06:26)
[2020-02-14] MEDS ORDERED: TUBERCULIN SKIN TEST 0.1 ML SYRINGE INTRADERM ONE (08:00)
[2020-02-14] MEDS: ASPIRIN EC 81 MG TABLET PO SCH (08:26)
[2020-02-14] MEDS: POTASSIUM CHLORIDE 20 MEQ TABLET PO SCH (08:26)
[2020-02-14] MEDS: methylPREDNISolone SOD SUC 40 MG/1 ML VIAL IV SCH (08:26)
[2020-02-14] MEDS: METOPROLOL TARTRATE 50 MG TABLET PO SCH (08:26)
[2020-02-14] MEDS: PANTOPRAZOLE 40 MG TABLET PO SCH ×2 (08:26→17:04)
[2020-02-14] MEDS: MAGNESIUM OXIDE 400 MG TABLET PO SCH (08:26)
[2020-02-14] MEDS: BUDESONIDE/FORMOTEROL 160-4.5 INHALER 6 GM INH SCH ×2 (08:27→21:33)
[2020-02-14] MEDS: FOLIC ACID 1 MG TABLET PO SCH (08:27)
[2020-02-14] MEDS: MIRTAZAPINE 30 MG TABLET PO SCH (21:31)
[2020-02-14] MEDS: DULoxetine 30 MG CAPSULE PO SCH (21:31)
[2020-02-14] MEDS: ERYTHROMYCIN 0.5% OPHT OINT 3.5 GM TUBE RIGHT EYE SCH (21:33)
[2020-02-15] MEDS: SODIUM CHLORIDE 0.9% 1,000 ML IV SCH ×3 (00:58→23:48)
[2020-02-15] MEDS: INSULIN LISPRO 100 UNIT/ML SUBCUT SCH ×4 (00:59→18:11)
[2020-02-15] MEDS: PIPERACILLIN/TAZOBACTAM 3,375 MG in SODIUM CHLORIDE 0.9% 100 ML IV SCH ×2 (02:08→12:24)
[2020-02-15] MEDS: PANTOPRAZOLE 40 MG TABLET PO SCH ×2 (09:22→18:11)
[2020-02-15] MEDS: POTASSIUM CHLORIDE 20 MEQ TABLET PO SCH (09:22)
[2020-02-15] MEDS: METOPROLOL TARTRATE 50 MG TABLET PO SCH (09:22)
[2020-02-15] MEDS: MAGNESIUM OXIDE 400 MG TABLET PO SCH (09:22)
[2020-02-15] MEDS: FOLIC ACID 1 MG TABLET PO SCH (09:22)
[2020-02-15] MEDS: BUDESONIDE/FORMOTEROL 160-4.5 INHALER 6 GM INH SCH ×2 (09:22→21:08)
[2020-02-15] MEDS: ASPIRIN EC 81 MG TABLET PO SCH (09:23)
[2020-02-15] MEDS: ENOXAPARIN 40 MG/0.4 ML SYRINGE SUBCUT SCH (09:23)
[2020-02-15] MEDS: methylPREDNISolone SOD SUC 40 MG/1 ML VIAL IV SCH (09:24)
[2020-02-15] MEDS: ACETAMINOPHEN 325 MG TABLET PO PRN (18:12)
[2020-02-15] MEDS: DULoxetine 30 MG CAPSULE PO SCH (21:07)
[2020-02-15] MEDS: MIRTAZAPINE 30 MG TABLET PO SCH (21:07)
[2020-02-15] MEDS: hydrALAZINE 20 MG/1 ML VIAL IV PRN (21:08)
[2020-02-15] MEDS: ERYTHROMYCIN 0.5% OPHT OINT 3.5 GM TUBE RIGHT EYE SCH (21:08)
[2020-02-16] MEDS: INSULIN LISPRO 100 UNIT/ML SUBCUT SCH ×5 (00:30→23:59)
[2020-02-16] MEDS: ENOXAPARIN 40 MG/0.4 ML SYRINGE SUBCUT SCH (06:14)
[2020-02-16] MEDS: FOLIC ACID 1 MG TABLET PO SCH (08:50)
[2020-02-16] MEDS: POTASSIUM CHLORIDE 20 MEQ TABLET PO SCH (08:50)
[2020-02-16] MEDS: ACETAMINOPHEN 325 MG TABLET PO PRN (08:50)
[2020-02-16] MEDS: ASPIRIN EC 81 MG TABLET PO SCH (08:50)
[2020-02-16] MEDS: PANTOPRAZOLE 40 MG TABLET PO SCH ×2 (08:51→16:55)
[2020-02-16] MEDS: METOPROLOL TARTRATE 50 MG TABLET PO SCH (08:51)
[2020-02-16] MEDS: methylPREDNISolone SOD SUC 40 MG/1 ML VIAL IV SCH (08:51)
[2020-02-16] MEDS: MAGNESIUM OXIDE 400 MG TABLET PO SCH (08:51)
[2020-02-16] MEDS: BUDESONIDE/FORMOTEROL 160-4.5 INHALER 6 GM INH SCH ×2 (09:56→20:35)
[2020-02-16] MEDS: MIRTAZAPINE 30 MG TABLET PO SCH (20:34)
[2020-02-16] MEDS: SODIUM CHLORIDE 0.9% 1,000 ML IV SCH (20:34)
[2020-02-16] MEDS: DULoxetine 30 MG CAPSULE PO SCH (20:34)
[2020-02-16] MEDS: ERYTHROMYCIN 0.5% OPHT OINT 3.5 GM TUBE RIGHT EYE SCH (20:35)
[2020-02-16] MEDS: cloNIDine 0.1 MG TABLET PO PRN (20:36)
[2020-02-17] MEDS: INSULIN LISPRO 100 UNIT/ML SUBCUT SCH ×3 (06:04→19:16)
[2020-02-17] MEDS: ENOXAPARIN 40 MG/0.4 ML SYRINGE SUBCUT SCH (06:30)
[2020-02-17] MEDS: PANTOPRAZOLE 40 MG TABLET PO SCH ×2 (06:30→15:30)
[2020-02-17] MEDS: ASPIRIN EC 81 MG TABLET PO SCH (09:02)
[2020-02-17] MEDS: POTASSIUM CHLORIDE 20 MEQ TABLET PO SCH (09:02)
[2020-02-17] MEDS: MAGNESIUM OXIDE 400 MG TABLET PO SCH (09:02)
[2020-02-17] MEDS: FOLIC ACID 1 MG TABLET PO SCH (09:02)
[2020-02-17] MEDS: methylPREDNISolone SOD SUC 40 MG/1 ML VIAL IV SCH (09:15)
[2020-02-17] MEDS: METOPROLOL TARTRATE 50 MG TABLET PO SCH (09:20)
[2020-02-17] MEDS: BUDESONIDE/FORMOTEROL 160-4.5 INHALER 6 GM INH SCH ×2 (09:45→21:23)
[2020-02-17] MEDS: DULoxetine 30 MG CAPSULE PO SCH (21:22)
[2020-02-17] MEDS: predniSONE 20 MG TABLET PO SCH (21:22)
[2020-02-17] MEDS: MIRTAZAPINE 30 MG TABLET PO SCH (21:22)
[2020-02-17] MEDS: ERYTHROMYCIN 0.5% OPHT OINT 3.5 GM TUBE RIGHT EYE SCH (21:23)
[2020-02-18] MEDS: INSULIN LISPRO 100 UNIT/ML SUBCUT SCH ×4 (01:15→19:02)
[2020-02-18] MEDS: cloNIDine 0.1 MG TABLET PO PRN (04:37)
[2020-02-18 05:45] LABS: Basophils % 0.3 % (0.0-0.8); Hemoglobin 9.9 GM/DL (12.0-16.0); Immature Granulocytes % 2.7 %; Immature Granulocytes Absolute 0.32 #; Lymphocytes # 0.6 10*3/uL (1.4-4.0); Lymphocytes % 4.7 % (21.3-54.2); Mean Corpuscular HGB Conc 31.9 GM/DL (32-36); Mean Corpuscular Volume 85.2 FL (87-102); Mean Platelet Volume 11.5 FL (9.6-12.0); Monocytes % 3.9 % (1.7-12.7); Neutrophils % 88.4 % (38.7-73.9); Platelet Count 286 T/CUMM (130-400); Red Blood Count 3.64 MC/CUMM (3.8-5.5); White Blood Count 11.8 T/CUMM (4-12)
[2020-02-18] MEDS: ENOXAPARIN 40 MG/0.4 ML SYRINGE SUBCUT SCH (06:00)
[2020-02-18 06:09] LABS: Acanthocytes Few; Hypersegmented Neutrophil SLIGHT; Hypochromasia 1+; Lymphocytes 3 % (20-55); Segmented Neutrophils 96 % (50-85); Total Cells Counted 100
[2020-02-18 06:10] LABS: Anisocytosis 1+; Microcytosis 1+; Ovalocytes Slight; Target Cells Slight
[2020-02-18 06:12] LABS: Albumin 1.9 G/DL (3.4-5.0); Bilirubin,Total 0.8 MG/DL (0.2-1.0); Calcium 8.6 MG/DL (8.5-10.1); Osmolality,Calculated 277.5 MOS/KG (273-304); Total Protein 5.2 G/DL (6.4-8.3)
[2020-02-18] MEDS: METOPROLOL TARTRATE 50 MG TABLET PO SCH (08:36)
[2020-02-18] MEDS: PANTOPRAZOLE 40 MG TABLET PO SCH ×2 (08:37→16:52)
[2020-02-18] MEDS: MAGNESIUM OXIDE 400 MG TABLET PO SCH (08:37)
[2020-02-18] MEDS: predniSONE 20 MG TABLET PO SCH ×2 (08:37→20:59)
[2020-02-18] MEDS: FOLIC ACID 1 MG TABLET PO SCH (08:37)
[2020-02-18] MEDS: BUDESONIDE/FORMOTEROL 160-4.5 INHALER 6 GM INH SCH ×2 (08:38→21:06)
[2020-02-18] MEDS: POTASSIUM CHLORIDE 20 MEQ TABLET PO SCH (08:38)
[2020-02-18] MEDS: ASPIRIN EC 81 MG TABLET PO SCH (09:07)
[2020-02-18] MEDS: MIRTAZAPINE 30 MG TABLET PO SCH (20:59)
[2020-02-18] MEDS: DULoxetine 30 MG CAPSULE PO SCH (20:59)
[2020-02-18] MEDS: ERYTHROMYCIN 0.5% OPHT OINT 3.5 GM TUBE RIGHT EYE SCH (21:06)
[2020-02-19] MEDS: INSULIN LISPRO 100 UNIT/ML SUBCUT SCH ×4 (00:57→18:10)
[2020-02-19] MEDS: cloNIDine 0.1 MG TABLET PO PRN (05:44)
[2020-02-19] MEDS: ENOXAPARIN 40 MG/0.4 ML SYRINGE SUBCUT SCH (06:06)
[2020-02-19] MEDS: ASPIRIN EC 81 MG TABLET PO SCH (09:06)
[2020-02-19] MEDS: PANTOPRAZOLE 40 MG TABLET PO SCH ×2 (09:06→17:04)
[2020-02-19] MEDS: predniSONE 20 MG TABLET PO SCH ×2 (09:06→20:42)
[2020-02-19] MEDS: POTASSIUM CHLORIDE 20 MEQ TABLET PO SCH (09:06)
[2020-02-19] MEDS: MAGNESIUM OXIDE 400 MG TABLET PO SCH (09:06)
[2020-02-19] MEDS: FOLIC ACID 1 MG TABLET PO SCH (09:06)
[2020-02-19] MEDS: METOPROLOL TARTRATE 50 MG TABLET PO SCH (09:07)
[2020-02-19] MEDS: BUDESONIDE/FORMOTEROL 160-4.5 INHALER 6 GM INH SCH ×2 (09:14→20:42)
[2020-02-19] MEDS: ERYTHROMYCIN 0.5% OPHT OINT 3.5 GM TUBE RIGHT EYE SCH (20:41)
[2020-02-19] MEDS: MIRTAZAPINE 30 MG TABLET PO SCH (20:42)
[2020-02-19] MEDS: DULoxetine 30 MG CAPSULE PO SCH (20:42)
[2020-02-20] MEDS: INSULIN LISPRO 100 UNIT/ML SUBCUT SCH ×3 (00:29→12:59)
[2020-02-20] MEDS: cloNIDine 0.1 MG TABLET PO PRN (00:34)
[2020-02-20] MEDS: ENOXAPARIN 40 MG/0.4 ML SYRINGE SUBCUT SCH (06:09)
[2020-02-20] MEDS: METOPROLOL TARTRATE 50 MG TABLET PO SCH (08:57)
[2020-02-20] MEDS: PANTOPRAZOLE 40 MG TABLET PO SCH (08:57)
[2020-02-20] MEDS: MAGNESIUM OXIDE 400 MG TABLET PO SCH (08:57)
[2020-02-20] MEDS: FOLIC ACID 1 MG TABLET PO SCH (08:57)
[2020-02-20] MEDS: ASPIRIN EC 81 MG TABLET PO SCH (08:57)
[2020-02-20] MEDS: POTASSIUM CHLORIDE 20 MEQ TABLET PO SCH (08:58)
[2020-02-20] MEDS: BUDESONIDE/FORMOTEROL 160-4.5 INHALER 6 GM INH SCH (08:58)
[2020-02-20] MEDS ORDERED: predniSONE 20 MG TABLET PO SCH (09:00)
[2020-02-20] MEDS ORDERED: FLUCONAZOLE 100 MG TABLET PO SCH (09:00)
[2020-02-20] MEDS ORDERED: NYSTATIN 500,000 UNIT/5 ML UDCUP SWISH/SWAL SCH (09:00)
[2020-02-20 12:50] VITALS: BP 149/95
== END 2020-02-20 12:50 | DRG 871 ==
LOC: EDUNIT# → EDBD → N.ED 05:15 → N.EDINP 07:04 → N.CC 07:46 → N.5E 02-08 16:44
PROVIDERS: ADMIT Family Medicine; ATTEND Family Medicine

== ENCOUNTER 2020-09-12 10:35 | Observation (INO) ==
[2020-09-12 11:15] LABS: Basophils % 0.4 % (0.0-0.8); Eosinophils # 0.1 10*3/uL (0.0-0.87); Eosinophils % 2.2 % (0.00-10.9); Hematocrit 26.5 VOL% (35.7-47.0); Hemoglobin 8.5 GM/DL (12.0-16.0); Immature Granulocytes % 0.9 %; Immature Granulocytes Absolute 0.02 #; Lymphocytes # 1.1 10*3/uL (1.4-4.0); Lymphocytes % 47.6 % (21.3-54.2); Mean Corpuscular HGB Conc 32.1 GM/DL (32-36); Mean Corpuscular Volume 91.7 FL (87-102); Mean Platelet Volume 10.6 FL (9.6-12.0); Monocytes % 18.9 % (1.7-12.7); Platelet Count 381 T/CUMM (130-400); Red Blood Count 2.89 MC/CUMM (3.8-5.5); Red Cell Distribution Width 15.9 % (9.3-17.3); White Blood Count 2.3 T/CUMM (4-12)
[2020-09-12] MEDS ORDERED: SODIUM CHLORIDE 0.9% 1,000 ML IV STA (11:20)
[2020-09-12 11:21] LABS: INR 1.2; PT Patient Result 12.3 SECS (9.8-11.9); Partial Thromboplastin Time 27.7 SECS (23.9-33.8)
[2020-09-12 11:42] LABS: Anisocytosis 1+; Atypical Lymphocytes 1+; Band Neutrophils 13 % (0-10); Eosinophils 5 % (0-10); Lymphocytes 47 % (20-55); Nucleated Red Blood Cells 2 (0-5); Platelet Estimate Normal; Segmented Neutrophils 22 % (50-85); Total Cells Counted 100
[2020-09-12 11:43] LABS: Macrocytosis Slight
[2020-09-12 11:46] LABS: Alanine Aminotransferase 9 U/L (13-56); Albumin 2.2 G/DL (3.4-5.0); Alkaline Phosphatase 64 U/L (45-117); Aspartate Amino Transferase 18 U/L (0-37); Blood Urea Nitrogen 13 MG/DL (7-18); Calcium 8.6 MG/DL (8.5-10.1); Estimated Glom Filtration Rate 93 ML/MIN; Glucose 96 MG/DL (74-106); Osmolality,Calculated 282.1 MOS/KG (273-304); Total Protein 5.2 G/DL (6.4-8.3)
[2020-09-12 11:54] LABS: Bilirubin,Urine Negative (Negative); Blood, Urine Negative (Negative); Glucose,Urine (UA) Negative (Negative); Hyaline Casts,Urine 3 /LPF (0-3); Ketones,Urine Negative (Negative); Mucus,Urine Moderate /LPF (Occasional); Nitrite,Urine Negative (Negative); Protein,Urine Negative; RBC,Urine 1 /HPF (0-4); Urine Appearance CLEAR (Clear); Urine Color Yellow (Yellow); Urine Specific Gravity 1.018 (1.001-1.035); Urine Urobilinogen < 2.0 EU/DL (0.2-1.0); WBC,Urine <1 /HPF (0-6)
[2020-09-12] MEDS ORDERED: diphenhydrAMINE 50 MG/1 ML VIAL IV STA (15:07)
[2020-09-12] MEDS ORDERED: methylPREDNISolone SOD SUC 125 MG/2 ML VIAL IV STA (15:07)
[2020-09-12] MEDS ORDERED: ONDANSETRON 4 MG/2 ML VIAL IV PRN (15:49)
[2020-09-12] MEDS ORDERED: SODIUM PHOSPHATE ENEMA 133 ML BOTTLE RECTAL STA (15:49)
[2020-09-12] MEDS ORDERED: POTASSIUM CHLORIDE 20 MEQ TABLET PO PRN (17:30)
[2020-09-12] MEDS ORDERED: ALBUTEROL 2.5 MG/3 ML NEB RESP TX PRN (17:59)
[2020-09-12] MEDS ORDERED: NON-FORMULARY MEDICATION (Saliva Substitute Combo No.9 [Biotene Dry Mouth Oral Rinse] Mout MUCOUS MEMBRANE SCH (18:00)
[2020-09-12] MEDS: NON-FORMULARY MEDICATION (Cran-Vitc-Mannose-Fos-Bromeln [Uti-Stat] 3,875 mg/30 mL Liquid) PO SCH (21:28)
[2020-09-12] MEDS: methylPREDNISolone SOD SUC 125 MG/2 ML VIAL IV SCH (21:34)
[2020-09-12] MEDS: BUDESONIDE/FORMOTEROL 160-4.5 INHALER 6 GM INH SCH (21:36)
[2020-09-12] MEDS: MELATONIN 3 MG TABLET PO SCH (21:36)
[2020-09-12] MEDS: diphenhydrAMINE CAP 25 MG CAPSULE PO PRN (21:37)
[2020-09-12] MEDS: POTASSIUM CHLORIDE 20 MEQ TABLET PO SCH (21:37)
[2020-09-12] MEDS: MIRTAZAPINE 30 MG TABLET PO SCH (21:40)
[2020-09-12] MEDS: DULoxetine 30 MG CAPSULE PO SCH (21:41)
[2020-09-12] MEDS: DOCUSATE SODIUM 100 MG CAPSULE PO SCH (21:41)
[2020-09-12] MEDS: SALIVA SUBSTITUTE COMBO NO 9 SWISH/SWAL SCH (21:42)
[2020-09-12] MEDS: NON-FORMULARY MEDICATION (Zinc Oxide-Cod Liver Oil [Desitin] 40 % Paste) TOP SCH (21:43)
[2020-09-13] MEDS: SALIVA SUBSTITUTE COMBO NO 9 SWISH/SWAL SCH ×4 (02:16→20:50)
[2020-09-13 04:27] LABS: Hematocrit 28.9 VOL% (35.7-47.0); Immature Granulocytes Absolute 0.02 #; Lymphocytes # 0.4 10*3/uL (1.4-4.0); Lymphocytes % 21.7 % (21.3-54.2); Mean Corpuscular HGB Conc 31.1 GM/DL (32-36); Mean Corpuscular Volume 94.1 FL (87-102); Mean Platelet Volume 10.3 FL (9.6-12.0); Monocytes % 5.1 % (1.7-12.7); Neutrophils % 72.2 % (38.7-73.9); Platelet Count 479 T/CUMM (130-400); Red Blood Count 3.07 MC/CUMM (3.8-5.5); Red Cell Distribution Width 15.7 % (9.3-17.3)
[2020-09-13 04:41] LABS: Calcium 8.4 MG/DL (8.5-10.1)
[2020-09-13] MEDS: methylPREDNISolone SOD SUC 125 MG/2 ML VIAL IV SCH ×3 (05:30→21:00)
[2020-09-13 08:09] LABS: Anisocytosis 1+; Band Neutrophils 17 % (0-10); Lymphocytes 20 % (20-55); Platelet Estimate Normal; Segmented Neutrophils 62 % (50-85); Total Cells Counted 100
[2020-09-13 08:10] LABS: Giant Platelets Few; Macrocytosis 1+; Ovalocytes Few; Poikilocytosis 1+
[2020-09-13] MEDS: FOLIC ACID 1 MG TABLET PO SCH (08:26)
[2020-09-13] MEDS: ASPIRIN EC 81 MG TABLET PO SCH (08:26)
[2020-09-13] MEDS: POTASSIUM CHLORIDE 20 MEQ TABLET PO SCH ×2 (08:26→20:48)
[2020-09-13] MEDS: DOCUSATE SODIUM 100 MG CAPSULE PO SCH ×2 (08:26→20:47)
[2020-09-13] MEDS: METOPROLOL SUCCINATE XL 100 MG TABLET PO SCH (08:26)
[2020-09-13] MEDS: diphenhydrAMINE CAP 25 MG CAPSULE PO PRN ×2 (08:26→20:47)
[2020-09-13] MEDS: traMADol 50 MG TABLET PO SCH (08:27)
[2020-09-13] MEDS: PANTOPRAZOLE 40 MG TABLET PO SCH (08:27)
[2020-09-13] MEDS: predniSONE 10 MG TABLET PO SCH (08:27)
[2020-09-13] MEDS: MULTIVITAMIN (PRENATAL) TABLET PO SCH (08:27)
[2020-09-13] MEDS: DOXAZOSIN 1 MG TABLET PO SCH (08:27)
[2020-09-13] MEDS: FERROUS SULFATE 325 MG TABLET PO SCH ×2 (08:27→17:03)
[2020-09-13] MEDS: MAGNESIUM OXIDE 400 MG TABLET PO SCH (08:27)
[2020-09-13] MEDS: NON-FORMULARY MEDICATION (Cran-Vitc-Mannose-Fos-Bromeln [Uti-Stat] 3,875 mg/30 mL Liquid) PO SCH ×2 (08:28→20:47)
[2020-09-13] MEDS: BUDESONIDE/FORMOTEROL 160-4.5 INHALER 6 GM INH SCH ×2 (08:29→20:50)
[2020-09-13] MEDS: NON-FORMULARY MEDICATION (Zinc Oxide-Cod Liver Oil [Desitin] 40 % Paste) TOP SCH ×3 (08:30→20:59)
[2020-09-13] MEDS: DULoxetine 30 MG CAPSULE PO SCH (20:47)
[2020-09-13] MEDS: MELATONIN 3 MG TABLET PO SCH (20:48)
[2020-09-13] MEDS: MIRTAZAPINE 30 MG TABLET PO SCH (20:48)
[2020-09-14] MEDS: SALIVA SUBSTITUTE COMBO NO 9 SWISH/SWAL SCH ×2 (02:49→11:25)
[2020-09-14] MEDS: methylPREDNISolone SOD SUC 125 MG/2 ML VIAL IV SCH ×3 (05:41→22:00)
[2020-09-14] MEDS: METOPROLOL SUCCINATE XL 100 MG TABLET PO SCH (09:38)
[2020-09-14] MEDS: FERROUS SULFATE 325 MG TABLET PO SCH ×2 (09:39→16:53)
[2020-09-14] MEDS: predniSONE 10 MG TABLET PO SCH (09:39)
[2020-09-14] MEDS: FOLIC ACID 1 MG TABLET PO SCH (09:39)
[2020-09-14] MEDS: MAGNESIUM OXIDE 400 MG TABLET PO SCH (09:39)
[2020-09-14] MEDS: PANTOPRAZOLE 40 MG TABLET PO SCH (09:39)
[2020-09-14] MEDS: traMADol 50 MG TABLET PO SCH (09:39)
[2020-09-14] MEDS: ASPIRIN EC 81 MG TABLET PO SCH (09:40)
[2020-09-14] MEDS: BUDESONIDE/FORMOTEROL 160-4.5 INHALER 6 GM INH SCH ×2 (09:40→20:49)
[2020-09-14] MEDS: DOCUSATE SODIUM 100 MG CAPSULE PO SCH ×2 (09:40→20:49)
[2020-09-14] MEDS: MENTHOL/ZINC OXIDE OINT 71 GM JAR TOP SCH (09:40)
[2020-09-14] MEDS: DOXAZOSIN 1 MG TABLET PO SCH (09:40)
[2020-09-14] MEDS: POTASSIUM CHLORIDE 20 MEQ TABLET PO SCH ×2 (09:40→20:49)
[2020-09-14] MEDS: MULTIVITAMIN (PRENATAL) TABLET PO SCH (09:41)
[2020-09-14] MEDS: NON-FORMULARY MEDICATION (Cran-Vitc-Mannose-Fos-Bromeln [Uti-Stat] 3,875 mg/30 mL Liquid) PO SCH (11:25)
[2020-09-14] MEDS: NON-FORMULARY MEDICATION (Zinc Oxide-Cod Liver Oil [Desitin] 40 % Paste) TOP SCH (11:25)
[2020-09-14] MEDS: cefTRIAXone 1,000 MG in SYRINGE 1 EACH IV SCH (16:53)
[2020-09-14] MEDS: ACETAMINOPHEN 325 MG TABLET PO PRN (16:54)
[2020-09-14] MEDS: MIRTAZAPINE 30 MG TABLET PO SCH (20:48)
[2020-09-14] MEDS: DULoxetine 30 MG CAPSULE PO SCH (20:48)
[2020-09-14] MEDS: MELATONIN 3 MG TABLET PO SCH (20:49)
[2020-09-15] MEDS: methylPREDNISolone SOD SUC 125 MG/2 ML VIAL IV SCH (06:53)
[2020-09-15 08:09] LABS: Hematocrit 27.2 VOL% (35.7-47.0); Hemoglobin 8.5 GM/DL (12.0-16.0); Immature Granulocytes % 1.9 %; Immature Granulocytes Absolute 0.06 #; Lymphocytes # 0.3 10*3/uL (1.4-4.0); Mean Corpuscular HGB Conc 31.3 GM/DL (32-36); Mean Corpuscular Volume 94.1 FL (87-102); Mean Platelet Volume 9.8 FL (9.6-12.0); Neutrophils % 70.1 % (38.7-73.9); Red Blood Count 2.89 MC/CUMM (3.8-5.5); Red Cell Distribution Width 15.5 % (9.3-17.3)
[2020-09-15 08:20] LABS: Platelet Count 785 T/CUMM (130-400); White Blood Count 3.1 T/CUMM (4-12)
[2020-09-15 08:32] LABS: Band Neutrophils 1 % (0-10); Hypochromasia 1+; Lymphocytes 10 % (20-55); Ovalocytes Slight; Platelet Estimate Increased; Segmented Neutrophils 79 % (50-85); Total Cells Counted 100
[2020-09-15 08:33] LABS: Albumin 2.5 G/DL (3.4-5.0); Bilirubin,Total 0.4 MG/DL (0.2-1.0); Calcium 8.9 MG/DL (8.5-10.1); Osmolality,Calculated 274.8 MOS/KG (273-304); Total Protein 5.9 G/DL (6.4-8.3)
[2020-09-15 08:34] LABS: Microcytosis Slight
[2020-09-15] MEDS: BISACODYL 5 MG TABLET PO SCH (08:58)
[2020-09-15] MEDS: cloNIDine 0.1 MG TABLET PO SCH ×2 (08:58→21:05)
[2020-09-15] MEDS: FOLIC ACID 1 MG TABLET PO SCH (08:59)
[2020-09-15] MEDS: traMADol 50 MG TABLET PO SCH (08:59)
[2020-09-15] MEDS: FERROUS SULFATE 325 MG TABLET PO SCH ×2 (08:59→17:54)
[2020-09-15] MEDS: POTASSIUM CHLORIDE 20 MEQ TABLET PO SCH ×2 (08:59→21:05)
[2020-09-15] MEDS: MAGNESIUM OXIDE 400 MG TABLET PO SCH (08:59)
[2020-09-15] MEDS: DOXAZOSIN 1 MG TABLET PO SCH (08:59)
[2020-09-15] MEDS: PANTOPRAZOLE 40 MG TABLET PO SCH (08:59)
[2020-09-15] MEDS: METOPROLOL SUCCINATE XL 100 MG TABLET PO SCH (08:59)
[2020-09-15] MEDS: DOCUSATE SODIUM 100 MG CAPSULE PO SCH ×2 (08:59→21:06)
[2020-09-15] MEDS: ASPIRIN EC 81 MG TABLET PO SCH (08:59)
[2020-09-15] MEDS: BUDESONIDE/FORMOTEROL 160-4.5 INHALER 6 GM INH SCH ×2 (09:00→21:10)
[2020-09-15] MEDS: SODIUM CHLORIDE 0.45% 1,000 ML IV SCH ×2 (09:00→21:18)
[2020-09-15] MEDS: MULTIVITAMIN (PRENATAL) TABLET PO SCH (09:00)
[2020-09-15] MEDS: methylPREDNISolone SOD SUC 40 MG/1 ML VIAL IV SCH (17:54)
[2020-09-15] MEDS: ALBUTEROL 2.5 MG/3 ML NEB RESP TX SCH (19:59)
[2020-09-15] MEDS: cefTRIAXone 1,000 MG in SYRINGE 1 EACH IV SCH (20:55)
[2020-09-15] MEDS: MELATONIN 3 MG TABLET PO SCH (21:05)
[2020-09-15] MEDS: MIRTAZAPINE 30 MG TABLET PO SCH (21:06)
[2020-09-15] MEDS: TEMAZEPAM 15 MG CAPSULE PO SCH (21:06)
[2020-09-15] MEDS: DULoxetine 30 MG CAPSULE PO SCH (21:06)
[2020-09-16] MEDS: ALBUTEROL 2.5 MG/3 ML NEB RESP TX SCH ×4 (02:22→19:27)
[2020-09-16] MEDS: methylPREDNISolone SOD SUC 40 MG/1 ML VIAL IV SCH ×3 (04:05→16:16)
[2020-09-16] MEDS: SODIUM CHLORIDE 0.45% 1,000 ML IV SCH ×2 (06:48→16:13)
[2020-09-16] MEDS: DOXAZOSIN 1 MG TABLET PO SCH (08:59)
[2020-09-16] MEDS: FERROUS SULFATE 325 MG TABLET PO SCH ×2 (09:00→16:13)
[2020-09-16] MEDS: MULTIVITAMIN (PRENATAL) TABLET PO SCH (09:00)
[2020-09-16] MEDS: POTASSIUM CHLORIDE 20 MEQ TABLET PO SCH ×2 (09:00→21:21)
[2020-09-16] MEDS: DOCUSATE SODIUM 100 MG CAPSULE PO SCH ×2 (09:01→21:22)
[2020-09-16] MEDS: cloNIDine 0.1 MG TABLET PO SCH ×2 (09:01→21:21)
[2020-09-16] MEDS: traMADol 50 MG TABLET PO SCH (09:01)
[2020-09-16] MEDS: PANTOPRAZOLE 40 MG TABLET PO SCH (09:01)
[2020-09-16] MEDS: METOPROLOL SUCCINATE XL 100 MG TABLET PO SCH (09:01)
[2020-09-16] MEDS: BISACODYL 5 MG TABLET PO SCH (09:01)
[2020-09-16] MEDS: FOLIC ACID 1 MG TABLET PO SCH (09:01)
[2020-09-16] MEDS: ASPIRIN EC 81 MG TABLET PO SCH (09:01)
[2020-09-16] MEDS: MENTHOL/ZINC OXIDE OINT 71 GM JAR TOP SCH (09:02)
[2020-09-16] MEDS: BUDESONIDE/FORMOTEROL 160-4.5 INHALER 6 GM INH SCH ×2 (09:02→21:22)
[2020-09-16] MEDS: MAGNESIUM OXIDE 400 MG TABLET PO SCH (09:02)
[2020-09-16] MEDS: ACETAMINOPHEN 325 MG TABLET PO PRN ×2 (11:50→21:22)
[2020-09-16] MEDS ORDERED: KETOROLAC 30 MG/1 ML VIAL IV PRN (13:24)
[2020-09-16] MEDS: cefTRIAXone 1,000 MG in SYRINGE 1 EACH IV SCH (21:19)
[2020-09-16] MEDS: DULoxetine 30 MG CAPSULE PO SCH (21:21)
[2020-09-16] MEDS: TEMAZEPAM 15 MG CAPSULE PO SCH (21:21)
[2020-09-16] MEDS: MELATONIN 3 MG TABLET PO SCH (21:21)
[2020-09-16] MEDS: MIRTAZAPINE 30 MG TABLET PO SCH (21:22)
[2020-09-16] MEDS ORDERED: FUROSEMIDE 20 MG/2 ML VIAL IV ONE (22:00)
[2020-09-17] MEDS: ALBUTEROL 2.5 MG/3 ML NEB RESP TX SCH ×4 (00:18→19:30)
[2020-09-17] MEDS: methylPREDNISolone SOD SUC 40 MG/1 ML VIAL IV SCH ×3 (02:10→17:13)
[2020-09-17] MEDS: SODIUM CHLORIDE 0.45% 1,000 ML IV SCH ×4 (02:16→21:27)
[2020-09-17 06:00] LABS: Basophils # 0.1 10*3/uL (0.0-0.2); Basophils % 1.5 % (0.0-0.8); Hematocrit 27.4 VOL% (35.7-47.0); Hemoglobin 8.6 GM/DL (12.0-16.0); Immature Granulocytes % 20.5 %; Immature Granulocytes Absolute 0.97 #; Lymphocytes # 0.4 10*3/uL (1.4-4.0); Lymphocytes % 7.8 % (21.3-54.2); Mean Corpuscular HGB Conc 31.4 GM/DL (32-36); Mean Corpuscular Volume 93.5 FL (87-102); Mean Platelet Volume 9.7 FL (9.6-12.0); Monocytes % 24.5 % (1.7-12.7); NRBC # 0.02 10*3/uL; Neutrophils % 45.7 % (38.7-73.9); Platelet Count 855 T/CUMM (130-400); Red Blood Count 2.93 MC/CUMM (3.8-5.5); Red Cell Distribution Width 15.3 % (9.3-17.3); White Blood Count 4.7 T/CUMM (4-12)
[2020-09-17 06:24] LABS: Hypochromasia 1+; Lymphocytes 16 % (20-55); Microcytosis Slight; Nucleated Red Blood Cells 1 (0-5); Ovalocytes Slight; Platelet Estimate Increased; Segmented Neutrophils 59 % (50-85); Total Cells Counted 100
[2020-09-17 06:25] LABS: Albumin 2.2 G/DL (3.4-5.0); Bilirubin,Total 0.4 MG/DL (0.2-1.0); Calcium 8.7 MG/DL (8.5-10.1); Osmolality,Calculated 279.5 MOS/KG (273-304); Total Protein 5.2 G/DL (6.4-8.3)
[2020-09-17] MEDS: KETOROLAC 30 MG/1 ML VIAL IV SCH ×3 (06:30→21:30)
[2020-09-17] MEDS: MULTIVITAMIN (PRENATAL) TABLET PO SCH (08:50)
[2020-09-17] MEDS: METOPROLOL SUCCINATE XL 100 MG TABLET PO SCH (08:50)
[2020-09-17] MEDS: ASPIRIN EC 81 MG TABLET PO SCH (08:50)
[2020-09-17] MEDS: cloNIDine 0.1 MG TABLET PO SCH ×3 (08:50→21:15)
[2020-09-17] MEDS: FOLIC ACID 1 MG TABLET PO SCH (08:50)
[2020-09-17] MEDS: BISACODYL 5 MG TABLET PO SCH (08:50)
[2020-09-17] MEDS: DOXAZOSIN 4 MG TABLET PO SCH (08:50)
[2020-09-17] MEDS: DOCUSATE SODIUM 100 MG CAPSULE PO SCH ×2 (08:50→21:15)
[2020-09-17] MEDS: FUROSEMIDE 20 MG/2 ML VIAL IV SCH (08:51)
[2020-09-17] MEDS: MAGNESIUM OXIDE 400 MG TABLET PO SCH (08:51)
[2020-09-17] MEDS: traMADol 50 MG TABLET PO SCH (08:51)
[2020-09-17] MEDS: FERROUS SULFATE 325 MG TABLET PO SCH ×2 (08:51→17:13)
[2020-09-17] MEDS: PANTOPRAZOLE 40 MG TABLET PO SCH (08:51)
[2020-09-17] MEDS: POTASSIUM CHLORIDE 20 MEQ TABLET PO SCH ×2 (08:51→21:16)
[2020-09-17] MEDS: BUDESONIDE/FORMOTEROL 160-4.5 INHALER 6 GM INH SCH ×2 (08:52→21:16)
[2020-09-17] MEDS ORDERED: cloNIDine 0.1 MG TABLET PO SCH (09:00)
[2020-09-17] MEDS: DULoxetine 30 MG CAPSULE PO SCH (21:15)
[2020-09-17] MEDS: MELATONIN 3 MG TABLET PO SCH (21:15)
[2020-09-17] MEDS: TEMAZEPAM 15 MG CAPSULE PO SCH (21:15)
[2020-09-17] MEDS: cefTRIAXone 1,000 MG in SYRINGE 1 EACH IV SCH (21:16)
[2020-09-17] MEDS: MIRTAZAPINE 30 MG TABLET PO SCH (21:16)
[2020-09-18] MEDS: methylPREDNISolone SOD SUC 40 MG/1 ML VIAL IV SCH ×2 (00:58→09:30)
[2020-09-18] MEDS: ALBUTEROL 2.5 MG/3 ML NEB RESP TX SCH ×3 (01:02→15:47)
[2020-09-18] MEDS: KETOROLAC 30 MG/1 ML VIAL IV SCH ×2 (05:45→16:23)
[2020-09-18 05:49] LABS: Basophils # 0.1 10*3/uL (0.0-0.2); Basophils % 1.2 % (0.0-0.8); Hematocrit 26.5 VOL% (35.7-47.0); Hemoglobin 8.4 GM/DL (12.0-16.0); Immature Granulocytes % 23.1 %; Immature Granulocytes Absolute 1.38 #; Lymphocytes # 0.5 10*3/uL (1.4-4.0); Lymphocytes % 7.5 % (21.3-54.2); Mean Corpuscular HGB Conc 31.7 GM/DL (32-36); Mean Corpuscular Volume 91.7 FL (87-102); Mean Platelet Volume 9.6 FL (9.6-12.0); Monocytes % 20.4 % (1.7-12.7); NRBC # 0.02 10*3/uL; Neutrophils % 47.8 % (38.7-73.9); Platelet Count 804 T/CUMM (130-400); Red Blood Count 2.89 MC/CUMM (3.8-5.5); Red Cell Distribution Width 15.2 % (9.3-17.3)
[2020-09-18] MEDS: SODIUM CHLORIDE 0.45% 1,000 ML IV SCH (05:49)
[2020-09-18 06:16] LABS: Band Neutrophils 5 % (0-10); Lymphocytes 16 % (20-55); Platelet Estimate Increased; Segmented Neutrophils 59 % (50-85); Total Cells Counted 100
[2020-09-18 06:17] LABS: Hypochromasia 1+; Microcytosis 1+; Ovalocytes Slight
[2020-09-18] MEDS: METOPROLOL SUCCINATE XL 100 MG TABLET PO SCH (09:23)
[2020-09-18] MEDS: MULTIVITAMIN (PRENATAL) TABLET PO SCH (09:23)
[2020-09-18] MEDS: POTASSIUM CHLORIDE 20 MEQ TABLET PO SCH (09:23)
[2020-09-18] MEDS: FOLIC ACID 1 MG TABLET PO SCH (09:24)
[2020-09-18] MEDS: DOCUSATE SODIUM 100 MG CAPSULE PO SCH (09:24)
[2020-09-18] MEDS: FERROUS SULFATE 325 MG TABLET PO SCH ×2 (09:24→16:23)
[2020-09-18] MEDS: ASPIRIN EC 81 MG TABLET PO SCH (09:24)
[2020-09-18] MEDS: traMADol 50 MG TABLET PO SCH (09:24)
[2020-09-18] MEDS: BISACODYL 5 MG TABLET PO SCH (09:26)
[2020-09-18] MEDS: DOXAZOSIN 4 MG TABLET PO SCH (09:26)
[2020-09-18] MEDS: MAGNESIUM OXIDE 400 MG TABLET PO SCH (09:26)
[2020-09-18] MEDS: cloNIDine 0.1 MG TABLET PO SCH ×2 (09:26→16:23)
[2020-09-18] MEDS: PANTOPRAZOLE 40 MG TABLET PO SCH (09:26)
[2020-09-18] MEDS: MENTHOL/ZINC OXIDE OINT 71 GM JAR TOP SCH (09:26)
[2020-09-18] MEDS: BUDESONIDE/FORMOTEROL 160-4.5 INHALER 6 GM INH SCH (09:27)
[2020-09-18] MEDS: FUROSEMIDE 20 MG/2 ML VIAL IV SCH (09:28)
[2020-09-18] MEDS ORDERED: POLYVINYL ALCOHOL 1.4% OPH SOLN 15 ML BOTTLE BOTH EYES PRN (14:21)
[2020-09-18 16:11] VITALS: BP 164/70
[2020-09-18] MEDS ORDERED: POLYVINYL ALCOHOL 1.4% OPH SOLN 15 ML BOTTLE BOTH EYES SCH (17:00)
== END 2020-09-18 17:39 ==
LOC: EDBD → EDUNIT# → N.EDINP 10:35 → N.ED 10:35 → N.5E 16:28
PROVIDERS: ADMIT Internal Medicine; ATTEND Internal Medicine

== ENCOUNTER 2020-12-07 12:31 | Inpatient (IN) ==
[2020-12-07] MEDS ORDERED: SODIUM CHLORIDE 0.9% 1,000 ML IV STA (12:38)
[2020-12-07 13:52] LABS: Bacteria,Urine Many /HPF (Few); Bilirubin,Urine Negative (Negative); Blood, Urine Small mg/dL (Negative); Glucose,Urine (UA) Negative (Negative); Hyaline Casts,Urine 31 /LPF (0-3); Ketones,Urine Negative (Negative); Mucus,Urine Occasional /LPF (Occasional); Nitrite,Urine Positive (Negative); Protein,Urine 30 MG/DL; RBC,Urine 8 /HPF (0-4); Urine Appearance CLOUDY (Clear); Urine Color Amber (Yellow); Urine Specific Gravity 1.016 (1.001-1.035); Urine Urobilinogen < 2.0 EU/DL (0.2-1.0); WBC,Urine 1433 /HPF (0-6)
[2020-12-07] MEDS ORDERED: cefTRIAXone 1,000 MG in SODIUM CHLORIDE 0.9% 100 ML IV STA (14:05)
[2020-12-07 15:05] LABS: Basophils % 0.3 % (0.0-0.8); Eosinophils # 0.1 10*3/uL (0.0-0.87); Eosinophils % 0.9 % (0.00-10.9); Hematocrit 34.7 VOL% (35.7-47.0); Hemoglobin 10.6 GM/DL (12.0-16.0); Immature Granulocytes % 1.9 %; Immature Granulocytes Absolute 0.22 #; Lymphocytes # 1.2 10*3/uL (1.4-4.0); Lymphocytes % 10.4 % (21.3-54.2); Mean Corpuscular HGB Conc 30.5 GM/DL (32-36); Mean Corpuscular Volume 91.6 FL (87-102); Mean Platelet Volume 9.8 FL (9.6-12.0); Monocytes % 4.4 % (1.7-12.7); Neutrophils % 82.1 % (38.7-73.9); Platelet Count 349 T/CUMM (130-400); Red Blood Count 3.79 MC/CUMM (3.8-5.5); Red Cell Distribution Width 16.1 % (9.3-17.3); White Blood Count 11.8 T/CUMM (4-12)
[2020-12-07 15:54] LABS: Alanine Aminotransferase 11 U/L (13-56); Albumin 1.7 G/DL (3.4-5.0); Alkaline Phosphatase 86 U/L (45-117); Aspartate Amino Transferase 18 U/L (0-37); Bilirubin,Total < 0.39 MG/DL (0.2-1.0); Blood Urea Nitrogen 17 MG/DL (7-18); Calcium 7.7 MG/DL (8.5-10.1); Carbon Dioxide 22 MMOL/L (21-32); Estimated Glom Filtration Rate 95 ML/MIN; Glucose 117 MG/DL (74-106); Osmolality,Calculated 281.4 MOS/KG (273-304); Potassium 3.9 MMOL/L (3.5-5.1); Sodium 140 MMOL/L (136-145)
[2020-12-07] MEDS ORDERED: ONDANSETRON 4 MG/2 ML VIAL IV PRN (18:53)
[2020-12-07] MEDS: cefTRIAXone 500 MG in SYRINGE 1 EACH IV SCH (21:25)
[2020-12-07] MEDS: DOCUSATE SODIUM 100 MG CAPSULE PO SCH (21:29)
[2020-12-07] MEDS: ALBUMIN 25% 25 GM in PREMIX 1 EACH IV SCH (21:30)
[2020-12-08] MEDS: ALBUMIN 25% 25 GM in PREMIX 1 EACH IV SCH ×2 (05:04→16:32)
[2020-12-08 05:14] LABS: Basophils % 0.5 % (0.0-0.8); Eosinophils # 0.2 10*3/uL (0.0-0.87); Eosinophils % 2.5 % (0.00-10.9); Hematocrit 29.1 VOL% (35.7-47.0); Hemoglobin 9.1 GM/DL (12.0-16.0); Immature Granulocytes Absolute 0.08 #; Lymphocytes # 1.5 10*3/uL (1.4-4.0); Lymphocytes % 18.9 % (21.3-54.2); Mean Corpuscular HGB Conc 31.3 GM/DL (32-36); Mean Corpuscular Volume 87.7 FL (87-102); Mean Platelet Volume 9.8 FL (9.6-12.0); Neutrophils % 68.1 % (38.7-73.9); Platelet Count 328 T/CUMM (130-400); Red Blood Count 3.32 MC/CUMM (3.8-5.5); Red Cell Distribution Width 15.9 % (9.3-17.3)
[2020-12-08 05:39] LABS: Albumin 2.2 G/DL (3.4-5.0); Bilirubin,Total 0.6 MG/DL (0.2-1.0); Calcium 7.9 MG/DL (8.5-10.1); Potassium 3.9 MMOL/L (3.5-5.1); Total Protein 4.8 G/DL (6.4-8.3)
[2020-12-08] MEDS ORDERED: PANTOPRAZOLE 40 MG TABLET PO SCH (09:00)
[2020-12-08] MEDS: DOCUSATE SODIUM 100 MG CAPSULE PO SCH ×3 (09:37→21:53)
[2020-12-08] MEDS: SODIUM CHLORIDE 0.9% 1,000 ML IV SCH (17:47)
[2020-12-08] MEDS: ACETAMINOPHEN 325 MG TABLET PO PRN (19:26)
[2020-12-08] MEDS ORDERED: MECLIZINE 25 MG TABLET PO PRN (19:29)
[2020-12-08] MEDS ORDERED: traMADol 50 MG TABLET PO PRN (19:29)
[2020-12-08] MEDS ORDERED: BISACODYL 10 MG SUPP RECTAL PRN (19:29)
[2020-12-08] MEDS: BISACODYL 5 MG TABLET PO SCH (20:15)
[2020-12-08] MEDS: MELATONIN 3 MG TABLET PO SCH (20:16)
[2020-12-08] MEDS: DICLOFENAC SODIUM 50 MG TABLET PO SCH (20:16)
[2020-12-08] MEDS: PANTOPRAZOLE 40 MG TABLET PO SCH (20:16)
[2020-12-08] MEDS: MAGNESIUM SULF RIDER 2 GM in PREMIX 1 EACH IV ONE ×2 (21:54→23:11)
[2020-12-08] MEDS: POLYVINYL ALCOHOL 1.4% OPH SOLN 15 ML BOTTLE BOTH EYES SCH (21:56)
[2020-12-08] MEDS: NON-FORMULARY MEDICATION (Zinc Oxide-Cod Liver Oil [Desitin] 40 % Paste) TOP SCH (21:56)
[2020-12-09] MEDS: cloNIDine 0.1 MG TABLET PO PRN ×2 (00:07→12:50)
[2020-12-09] MEDS: cefTRIAXone 500 MG in SYRINGE 1 EACH IV SCH (00:07)
[2020-12-09] MEDS: ALBUMIN 25% 25 GM in PREMIX 1 EACH IV SCH ×3 (00:10→15:52)
[2020-12-09] MEDS ORDERED: FERROUS SULFATE 325 MG TABLET PO SCH (08:00)
[2020-12-09] MEDS: MAGNESIUM OXIDE 400 MG TABLET PO SCH (08:33)
[2020-12-09] MEDS: DICLOFENAC SODIUM 50 MG TABLET PO SCH ×2 (08:33→20:37)
[2020-12-09] MEDS: DOXAZOSIN 4 MG TABLET PO SCH (08:33)
[2020-12-09] MEDS: ASPIRIN EC 81 MG TABLET PO SCH (08:33)
[2020-12-09] MEDS: METOPROLOL SUCCINATE XL 100 MG TABLET PO SCH (08:33)
[2020-12-09] MEDS: DOCUSATE SODIUM 100 MG CAPSULE PO SCH ×4 (08:33→20:45)
[2020-12-09] MEDS: PANTOPRAZOLE 40 MG TABLET PO SCH ×2 (08:33→15:53)
[2020-12-09] MEDS: FOLIC ACID 1 MG TABLET PO SCH (08:34)
[2020-12-09] MEDS: SODIUM CHLORIDE 0.9% 1,000 ML IV SCH ×3 (08:35→15:52)
[2020-12-09] MEDS: POLYVINYL ALCOHOL 1.4% OPH SOLN 15 ML BOTTLE BOTH EYES SCH ×4 (08:35→20:35)
[2020-12-09] MEDS: BISACODYL 5 MG TABLET PO SCH ×2 (08:35→20:36)
[2020-12-09] MEDS: NON-FORMULARY MEDICATION (Zinc Oxide-Cod Liver Oil [Desitin] 40 % Paste) TOP SCH ×3 (08:36→20:45)
[2020-12-09] MEDS: MELATONIN 3 MG TABLET PO SCH (20:36)
[2020-12-10] MEDS: ALBUMIN 25% 25 GM in PREMIX 1 EACH IV SCH ×2 (00:26→09:17)
[2020-12-10] MEDS: cefTRIAXone 500 MG in SYRINGE 1 EACH IV SCH (00:27)
[2020-12-10] MEDS: SODIUM CHLORIDE 0.9% 1,000 ML IV SCH ×2 (02:51→15:24)
[2020-12-10] MEDS: cloNIDine 0.1 MG TABLET PO PRN (02:51)
[2020-12-10 05:44] LABS: Basophils % 0.3 % (0.0-0.8); Eosinophils # 0.2 10*3/uL (0.0-0.87); Eosinophils % 1.7 % (0.00-10.9); Hemoglobin 8.7 GM/DL (12.0-16.0); Immature Granulocytes Absolute 0.12 #; Lymphocytes # 1.6 10*3/uL (1.4-4.0); Lymphocytes % 12.3 % (21.3-54.2); Mean Corpuscular Volume 91.5 FL (87-102); Mean Platelet Volume 10.1 FL (9.6-12.0); Neutrophils % 76.7 % (38.7-73.9); Platelet Count 291 T/CUMM (130-400); Red Blood Count 3.17 MC/CUMM (3.8-5.5); Red Cell Distribution Width 15.9 % (9.3-17.3); White Blood Count 12.6 T/CUMM (4-12)
[2020-12-10 06:04] LABS: Potassium 2.9 MMOL/L (3.5-5.1)
[2020-12-10] MEDS ORDERED: SODIUM HYPOCHLORITE 0.25% IRRIG 473 ML BOTTLE TOP SCH (09:00)
[2020-12-10] MEDS: DOCUSATE SODIUM 100 MG CAPSULE PO SCH ×2 (09:16→22:09)
[2020-12-10] MEDS: BISACODYL 5 MG TABLET PO SCH ×2 (09:17→22:08)
[2020-12-10] MEDS: FOLIC ACID 1 MG TABLET PO SCH (09:17)
[2020-12-10] MEDS: DICLOFENAC SODIUM 50 MG TABLET PO SCH ×2 (09:17→22:08)
[2020-12-10] MEDS: DOXAZOSIN 4 MG TABLET PO SCH (09:17)
[2020-12-10] MEDS: PANTOPRAZOLE 40 MG TABLET PO SCH ×2 (09:17→17:42)
[2020-12-10] MEDS: MAGNESIUM OXIDE 400 MG TABLET PO SCH (09:17)
[2020-12-10] MEDS: METOPROLOL SUCCINATE XL 100 MG TABLET PO SCH (09:17)
[2020-12-10] MEDS: NON-FORMULARY MEDICATION (Zinc Oxide-Cod Liver Oil [Desitin] 40 % Paste) TOP SCH ×2 (09:18→15:25)
[2020-12-10] MEDS: POLYVINYL ALCOHOL 1.4% OPH SOLN 15 ML BOTTLE BOTH EYES SCH ×4 (09:18→22:08)
[2020-12-10] MEDS: ASPIRIN EC 81 MG TABLET PO SCH ×2 (09:18→09:27)
[2020-12-10] MEDS ORDERED: POTASSIUM CHLORIDE 20 MEQ TABLET PO ONE (18:03)
[2020-12-10] MEDS: ALBUTEROL/IPRATROPIUM 3 ML NEB RESP TX SCH (19:13)
[2020-12-10] MEDS ORDERED: MAGNESIUM SULF RIDER 2 GM in PREMIX 1 EACH IV ONE (21:38)
[2020-12-10] MEDS ORDERED: METOPROLOL TARTRATE 25 MG TABLET PO ONE (21:40)
[2020-12-10] MEDS: MELATONIN 3 MG TABLET PO SCH (22:09)
[2020-12-10] MEDS: methylPREDNISolone SOD SUC 40 MG/1 ML VIAL IV SCH (22:15)
[2020-12-10] MEDS ORDERED: cloNIDine 0.1 MG TABLET PO ONE (22:26)
[2020-12-11] MEDS: ALBUTEROL/IPRATROPIUM 3 ML NEB RESP TX SCH ×4 (00:14→19:03)
[2020-12-11] MEDS: NON-FORMULARY MEDICATION (Zinc Oxide-Cod Liver Oil [Desitin] 40 % Paste) TOP SCH ×4 (01:06→22:22)
[2020-12-11] MEDS: cefTRIAXone 500 MG in SYRINGE 1 EACH IV SCH (01:35)
[2020-12-11] MEDS: SODIUM CHLORIDE 0.9% 1,000 ML IV SCH ×2 (03:00→15:42)
[2020-12-11 04:47] LABS: Basophils % 0.2 % (0.0-0.8); Hematocrit 30.3 VOL% (35.7-47.0); Immature Granulocytes % 1.2 %; Immature Granulocytes Absolute 0.13 #; Lymphocytes # 0.6 10*3/uL (1.4-4.0); Lymphocytes % 5.5 % (21.3-54.2); Mean Corpuscular HGB Conc 29.7 GM/DL (32-36); Mean Corpuscular Volume 90.7 FL (87-102); Mean Platelet Volume 10.2 FL (9.6-12.0); Monocytes % 1.6 % (1.7-12.7); Neutrophils % 91.5 % (38.7-73.9); Platelet Count 291 T/CUMM (130-400); Red Blood Count 3.34 MC/CUMM (3.8-5.5); Red Cell Distribution Width 15.9 % (9.3-17.3); White Blood Count 10.6 T/CUMM (4-12)
[2020-12-11 05:10] LABS: Albumin 3.2 G/DL (3.4-5.0); Bilirubin,Total 0.8 MG/DL (0.2-1.0); Calcium 8.4 MG/DL (8.5-10.1); Osmolality,Calculated 290.6 MOS/KG (273-304); Potassium 3.3 MMOL/L (3.5-5.1); Total Protein 5.9 G/DL (6.4-8.3)
[2020-12-11 05:15] LABS: Hypochromasia Slight; Lymphocytes 3 % (20-55); Platelet Estimate Normal; Segmented Neutrophils 95 % (50-85)
[2020-12-11 05:16] LABS: Total Cells Counted 100
[2020-12-11] MEDS: POTASSIUM CHLORIDE 20 MEQ TABLET PO PRN (06:40)
[2020-12-11] MEDS: PANTOPRAZOLE 40 MG TABLET PO SCH ×2 (09:53→15:41)
[2020-12-11] MEDS: ASPIRIN EC 81 MG TABLET PO SCH (09:53)
[2020-12-11] MEDS: DOCUSATE SODIUM 100 MG CAPSULE PO SCH ×2 (09:54→22:22)
[2020-12-11] MEDS: DOXAZOSIN 4 MG TABLET PO SCH (09:54)
[2020-12-11] MEDS: cloNIDine 0.1 MG TABLET PO SCH ×2 (09:54→15:41)
[2020-12-11] MEDS: FOLIC ACID 1 MG TABLET PO SCH (09:55)
[2020-12-11] MEDS: BISACODYL 5 MG TABLET PO SCH ×2 (09:55→22:22)
[2020-12-11] MEDS: METOPROLOL SUCCINATE XL 100 MG TABLET PO SCH (09:55)
[2020-12-11] MEDS: methylPREDNISolone SOD SUC 40 MG/1 ML VIAL IV SCH ×2 (09:56→22:56)
[2020-12-11] MEDS: DICLOFENAC SODIUM 50 MG TABLET PO SCH ×2 (09:56→22:23)
[2020-12-11] MEDS: POLYVINYL ALCOHOL 1.4% OPH SOLN 15 ML BOTTLE BOTH EYES SCH ×4 (09:56→22:22)
[2020-12-11] MEDS: METOPROLOL SUCCINATE XL 25 MG TABLET PO SCH (09:56)
[2020-12-11] MEDS: MAGNESIUM OXIDE 400 MG TABLET PO SCH (10:01)
[2020-12-11] MEDS ORDERED: MAGNESIUM HYDROXIDE SUSP 30 ML UDCUP PO PRN (11:00)
[2020-12-11] MEDS: MELATONIN 3 MG TABLET PO SCH (22:22)
[2020-12-12] MEDS: cefTRIAXone 500 MG in SYRINGE 1 EACH IV SCH (00:31)
[2020-12-12] MEDS: ALBUTEROL/IPRATROPIUM 3 ML NEB RESP TX SCH ×4 (00:48→19:29)
[2020-12-12] MEDS: SODIUM CHLORIDE 0.9% 1,000 ML IV SCH (04:23)
[2020-12-12] MEDS: PANTOPRAZOLE 40 MG TABLET PO SCH ×2 (08:11→16:27)
[2020-12-12] MEDS: MAGNESIUM OXIDE 400 MG TABLET PO SCH (08:54)
[2020-12-12] MEDS: DOXAZOSIN 4 MG TABLET PO SCH (08:55)
[2020-12-12] MEDS: DOCUSATE SODIUM 100 MG CAPSULE PO SCH ×2 (08:55→22:50)
[2020-12-12] MEDS: DICLOFENAC SODIUM 50 MG TABLET PO SCH ×2 (08:55→22:40)
[2020-12-12] MEDS: METOPROLOL SUCCINATE XL 100 MG TABLET PO SCH (08:55)
[2020-12-12] MEDS: BISACODYL 5 MG TABLET PO SCH ×2 (08:55→22:42)
[2020-12-12] MEDS: FOLIC ACID 1 MG TABLET PO SCH (08:55)
[2020-12-12] MEDS: ASPIRIN EC 81 MG TABLET PO SCH (08:55)
[2020-12-12] MEDS: POLYVINYL ALCOHOL 1.4% OPH SOLN 15 ML BOTTLE BOTH EYES SCH ×4 (09:33→22:42)
[2020-12-12] MEDS: METOPROLOL SUCCINATE XL 25 MG TABLET PO SCH (09:34)
[2020-12-12] MEDS: NON-FORMULARY MEDICATION (Zinc Oxide-Cod Liver Oil [Desitin] 40 % Paste) TOP SCH ×3 (09:34→22:42)
[2020-12-12] MEDS: methylPREDNISolone SOD SUC 40 MG/1 ML VIAL IV SCH ×2 (10:51→22:54)
[2020-12-12] MEDS: MELATONIN 3 MG TABLET PO SCH (22:39)
[2020-12-13] MEDS: cefTRIAXone 500 MG in SYRINGE 1 EACH IV SCH (00:28)
[2020-12-13] MEDS: ALBUTEROL/IPRATROPIUM 3 ML NEB RESP TX SCH ×4 (01:00→19:32)
[2020-12-13] MEDS: POTASSIUM CHLORIDE 20 MEQ TABLET PO PRN ×3 (03:26→14:30)
[2020-12-13] MEDS: SODIUM CHLORIDE 0.9% 1,000 ML IV SCH ×3 (04:18→23:46)
[2020-12-13] MEDS: POLYVINYL ALCOHOL 1.4% OPH SOLN 15 ML BOTTLE BOTH EYES SCH ×4 (09:25→21:47)
[2020-12-13] MEDS: METOPROLOL SUCCINATE XL 100 MG TABLET PO SCH (09:26)
[2020-12-13] MEDS: DOXAZOSIN 4 MG TABLET PO SCH (09:26)
[2020-12-13] MEDS: METOPROLOL SUCCINATE XL 25 MG TABLET PO SCH (09:26)
[2020-12-13] MEDS: FOLIC ACID 1 MG TABLET PO SCH (09:26)
[2020-12-13] MEDS: ASPIRIN EC 81 MG TABLET PO SCH (09:26)
[2020-12-13] MEDS: PANTOPRAZOLE 40 MG TABLET PO SCH ×2 (09:26→17:29)
[2020-12-13] MEDS: MAGNESIUM OXIDE 400 MG TABLET PO SCH (09:26)
[2020-12-13] MEDS: DICLOFENAC SODIUM 50 MG TABLET PO SCH ×2 (09:26→21:39)
[2020-12-13] MEDS: DOCUSATE SODIUM 100 MG CAPSULE PO SCH ×2 (09:26→21:37)
[2020-12-13] MEDS: BISACODYL 5 MG TABLET PO SCH ×2 (09:28→21:37)
[2020-12-13] MEDS: NON-FORMULARY MEDICATION (Zinc Oxide-Cod Liver Oil [Desitin] 40 % Paste) TOP SCH ×3 (10:14→22:19)
[2020-12-13] MEDS: methylPREDNISolone SOD SUC 40 MG/1 ML VIAL IV SCH ×2 (11:16→22:13)
[2020-12-13] MEDS: NYSTATIN 500,000 UNIT/5 ML UDCUP SWISH/SWAL SCH ×3 (14:30→21:43)
[2020-12-13] MEDS: MELATONIN 3 MG TABLET PO SCH (21:40)
[2020-12-14] MEDS: ALBUTEROL/IPRATROPIUM 3 ML NEB RESP TX SCH ×5 (00:17→23:55)
[2020-12-14] MEDS: cefTRIAXone 500 MG in SYRINGE 1 EACH IV SCH ×2 (00:24→23:15)
[2020-12-14] MEDS ORDERED: hydrALAZINE 10 MG TABLET PO PRN (00:43)
[2020-12-14 05:08] LABS: Calcium 8.5 MG/DL (8.5-10.1); Osmolality,Calculated 283.1 MOS/KG (273-304); Potassium 3.7 MMOL/L (3.5-5.1)
[2020-12-14] MEDS: BISACODYL 5 MG TABLET PO SCH ×2 (09:14→20:30)
[2020-12-14] MEDS: DOXAZOSIN 4 MG TABLET PO SCH (09:14)
[2020-12-14] MEDS: DICLOFENAC SODIUM 50 MG TABLET PO SCH ×2 (09:14→20:30)
[2020-12-14] MEDS: NYSTATIN 500,000 UNIT/5 ML UDCUP SWISH/SWAL SCH ×4 (09:14→20:30)
[2020-12-14] MEDS: PANTOPRAZOLE 40 MG TABLET PO SCH ×2 (09:14→15:50)
[2020-12-14] MEDS: ASPIRIN EC 81 MG TABLET PO SCH (09:14)
[2020-12-14] MEDS: MAGNESIUM OXIDE 400 MG TABLET PO SCH (09:15)
[2020-12-14] MEDS: METOPROLOL SUCCINATE XL 100 MG TABLET PO SCH (09:15)
[2020-12-14] MEDS: NON-FORMULARY MEDICATION (Zinc Oxide-Cod Liver Oil [Desitin] 40 % Paste) TOP SCH ×3 (09:15→23:15)
[2020-12-14] MEDS: DOCUSATE SODIUM 100 MG CAPSULE PO SCH ×2 (09:15→20:30)
[2020-12-14] MEDS: FOLIC ACID 1 MG TABLET PO SCH (09:15)
[2020-12-14] MEDS: POLYVINYL ALCOHOL 1.4% OPH SOLN 15 ML BOTTLE BOTH EYES SCH ×4 (09:16→20:31)
[2020-12-14] MEDS: METOPROLOL SUCCINATE XL 25 MG TABLET PO SCH (09:22)
[2020-12-14] MEDS: methylPREDNISolone SOD SUC 40 MG/1 ML VIAL IV SCH ×2 (09:27→23:13)
[2020-12-14] MEDS: SODIUM CHLORIDE 0.9% 1,000 ML IV SCH (13:44)
[2020-12-14] MEDS: MELATONIN 3 MG TABLET PO SCH (20:30)
[2020-12-15] MEDS: SODIUM CHLORIDE 0.9% 1,000 ML IV SCH ×2 (05:53→21:15)
[2020-12-15 05:58] LABS: Basophils % 0.2 % (0.0-0.8); Eosinophils % 0.2 % (0.00-10.9); Hematocrit 32.5 VOL% (35.7-47.0); Hemoglobin 10.2 GM/DL (12.0-16.0); Immature Granulocytes Absolute 0.06 #; Lymphocytes # 0.5 10*3/uL (1.4-4.0); Mean Corpuscular HGB Conc 31.4 GM/DL (32-36); Mean Corpuscular Volume 87.1 FL (87-102); Mean Platelet Volume 10.4 FL (9.6-12.0); Monocytes % 5.3 % (1.7-12.7); Neutrophils % 84.3 % (38.7-73.9); Platelet Count 297 T/CUMM (130-400); Red Blood Count 3.73 MC/CUMM (3.8-5.5); Red Cell Distribution Width 16.4 % (9.3-17.3); White Blood Count 5.9 T/CUMM (4-12)
[2020-12-15 06:13] LABS: Calcium 8.5 MG/DL (8.5-10.1); Osmolality,Calculated 277.4 MOS/KG (273-304); Potassium 3.1 MMOL/L (3.5-5.1)
[2020-12-15] MEDS: ALBUTEROL/IPRATROPIUM 3 ML NEB RESP TX SCH ×3 (07:30→19:37)
[2020-12-15] MEDS: POTASSIUM CHLORIDE 20 MEQ TABLET PO PRN ×3 (09:18→19:01)
[2020-12-15] MEDS: METOPROLOL SUCCINATE XL 25 MG TABLET PO SCH (09:18)
[2020-12-15] MEDS: METOPROLOL SUCCINATE XL 100 MG TABLET PO SCH (09:18)
[2020-12-15] MEDS: DICLOFENAC SODIUM 50 MG TABLET PO SCH (09:18)
[2020-12-15] MEDS: ASPIRIN EC 81 MG TABLET PO SCH (09:19)
[2020-12-15] MEDS: FOLIC ACID 1 MG TABLET PO SCH (09:19)
[2020-12-15] MEDS: NYSTATIN 500,000 UNIT/5 ML UDCUP SWISH/SWAL SCH ×4 (09:19→21:11)
[2020-12-15] MEDS: hydrALAZINE 25 MG TABLET PO SCH ×3 (09:19→21:11)
[2020-12-15] MEDS: MAGNESIUM OXIDE 400 MG TABLET PO SCH (09:19)
[2020-12-15] MEDS: PANTOPRAZOLE 40 MG TABLET PO SCH ×2 (09:19→17:58)
[2020-12-15] MEDS: DOXAZOSIN 4 MG TABLET PO SCH (09:19)
[2020-12-15] MEDS: BISACODYL 5 MG TABLET PO SCH ×2 (09:20→21:14)
[2020-12-15] MEDS: POLYVINYL ALCOHOL 1.4% OPH SOLN 15 ML BOTTLE BOTH EYES SCH ×4 (09:20→21:11)
[2020-12-15] MEDS: DOCUSATE SODIUM 100 MG CAPSULE PO SCH ×2 (09:20→21:15)
[2020-12-15] MEDS: NON-FORMULARY MEDICATION (Zinc Oxide-Cod Liver Oil [Desitin] 40 % Paste) TOP SCH ×3 (09:20→21:12)
[2020-12-15] MEDS: methylPREDNISolone SOD SUC 40 MG/1 ML VIAL IV SCH ×2 (09:22→21:12)
[2020-12-15] MEDS ORDERED: POTASSIUM CHLORIDE 20 MEQ TABLET PO ONE (20:36)
[2020-12-15] MEDS: MELATONIN 3 MG TABLET PO SCH (21:10)
[2020-12-15] MEDS: cefTRIAXone 500 MG in SYRINGE 1 EACH IV SCH (23:23)
[2020-12-16] MEDS: ALBUTEROL/IPRATROPIUM 3 ML NEB RESP TX SCH ×4 (00:30→19:28)
[2020-12-16 05:38] LABS: Basophils % 0.2 % (0.0-0.8); Eosinophils % 0.3 % (0.00-10.9); Hematocrit 31.9 VOL% (35.7-47.0); Hemoglobin 9.9 GM/DL (12.0-16.0); Immature Granulocytes Absolute 0.06 #; Lymphocytes # 0.7 10*3/uL (1.4-4.0); Lymphocytes % 12.2 % (21.3-54.2); Mean Corpuscular Volume 87.2 FL (87-102); Mean Platelet Volume 10.4 FL (9.6-12.0); Monocytes % 5.7 % (1.7-12.7); Neutrophils % 80.6 % (38.7-73.9); Platelet Count 300 T/CUMM (130-400); Red Blood Count 3.66 MC/CUMM (3.8-5.5); Red Cell Distribution Width 16.2 % (9.3-17.3); White Blood Count 5.7 T/CUMM (4-12)
[2020-12-16 06:01] LABS: Calcium 8.4 MG/DL (8.5-10.1); Osmolality,Calculated 283.1 MOS/KG (273-304); Potassium 4.5 MMOL/L (3.5-5.1)
[2020-12-16] MEDS ORDERED: LIDOCAINE 2% 5 ML VIAL ONE (07:03)
[2020-12-16] MEDS ORDERED: propofoL 200 MG/20 ML VIAL IV ONE (07:03)
[2020-12-16] MEDS: LACTATED RINGERS 1,000 ML IV SCH ×3 (07:30→11:05)
[2020-12-16] MEDS: PANTOPRAZOLE 40 MG TABLET PO SCH ×2 (07:43→16:02)
[2020-12-16] MEDS: DOCUSATE SODIUM 100 MG CAPSULE PO SCH ×2 (09:27→21:22)
[2020-12-16] MEDS: NON-FORMULARY MEDICATION (Zinc Oxide-Cod Liver Oil [Desitin] 40 % Paste) TOP SCH ×3 (09:27→21:23)
[2020-12-16] MEDS: BISACODYL 5 MG TABLET PO SCH ×2 (09:27→21:22)
[2020-12-16] MEDS: METOPROLOL SUCCINATE XL 100 MG TABLET PO SCH (09:31)
[2020-12-16] MEDS: FOLIC ACID 1 MG TABLET PO SCH (09:31)
[2020-12-16] MEDS: POLYVINYL ALCOHOL 1.4% OPH SOLN 15 ML BOTTLE BOTH EYES SCH ×4 (09:32→21:22)
[2020-12-16] MEDS: METOPROLOL SUCCINATE XL 25 MG TABLET PO SCH (09:32)
[2020-12-16] MEDS: MAGNESIUM OXIDE 400 MG TABLET PO SCH (09:32)
[2020-12-16] MEDS: ASPIRIN EC 81 MG TABLET PO SCH (09:32)
[2020-12-16] MEDS: NYSTATIN 500,000 UNIT/5 ML UDCUP SWISH/SWAL SCH ×4 (09:33→21:21)
[2020-12-16] MEDS: DOXAZOSIN 4 MG TABLET PO SCH (09:33)
[2020-12-16] MEDS: methylPREDNISolone SOD SUC 40 MG/1 ML VIAL IV SCH ×2 (09:34→21:23)
[2020-12-16] MEDS: SODIUM CHLORIDE 0.9% 1,000 ML IV SCH ×3 (09:36→23:41)
[2020-12-16] MEDS: SUCRALFATE 1 GM/10 ML UDCUP PO SCH ×3 (10:35→21:21)
[2020-12-16] MEDS: ACETAMINOPHEN 325 MG TABLET PO PRN (13:39)
[2020-12-16] MEDS: MELATONIN 3 MG TABLET PO SCH (21:22)
[2020-12-16] MEDS: cefTRIAXone 500 MG in SYRINGE 1 EACH IV SCH (23:36)
[2020-12-17] MEDS: ALBUTEROL/IPRATROPIUM 3 ML NEB RESP TX SCH ×3 (00:03→14:00)
[2020-12-17 04:32] LABS: Calcium 8.2 MG/DL (8.5-10.1); Osmolality,Calculated 284.3 MOS/KG (273-304); Potassium 3.7 MMOL/L (3.5-5.1)
[2020-12-17] MEDS: FOLIC ACID 1 MG TABLET PO SCH (09:08)
[2020-12-17] MEDS: MAGNESIUM OXIDE 400 MG TABLET PO SCH (09:08)
[2020-12-17] MEDS: METOPROLOL SUCCINATE XL 25 MG TABLET PO SCH (09:08)
[2020-12-17] MEDS: methylPREDNISolone SOD SUC 40 MG/1 ML VIAL IV SCH (09:08)
[2020-12-17] MEDS: PANTOPRAZOLE 40 MG TABLET PO SCH ×2 (09:08→17:41)
[2020-12-17] MEDS: BISACODYL 5 MG TABLET PO SCH (09:08)
[2020-12-17] MEDS: DOCUSATE SODIUM 100 MG CAPSULE PO SCH (09:08)
[2020-12-17] MEDS: DOXAZOSIN 4 MG TABLET PO SCH (09:08)
[2020-12-17] MEDS: NYSTATIN 500,000 UNIT/5 ML UDCUP SWISH/SWAL SCH ×3 (09:09→17:41)
[2020-12-17] MEDS: ASPIRIN EC 81 MG TABLET PO SCH (09:09)
[2020-12-17] MEDS: METOPROLOL SUCCINATE XL 100 MG TABLET PO SCH (09:09)
[2020-12-17] MEDS: POLYVINYL ALCOHOL 1.4% OPH SOLN 15 ML BOTTLE BOTH EYES SCH ×3 (09:10→17:43)
[2020-12-17] MEDS: NON-FORMULARY MEDICATION (Zinc Oxide-Cod Liver Oil [Desitin] 40 % Paste) TOP SCH ×2 (09:10→15:06)
[2020-12-17] MEDS: SUCRALFATE 1 GM/10 ML UDCUP PO SCH ×3 (09:29→17:41)
[2020-12-17] MEDS: LACTATED RINGERS 1,000 ML IV SCH (13:24)
[2020-12-17 17:14] VITALS: BP 131/60
[2020-12-17] MEDS: SODIUM CHLORIDE 0.9% 1,000 ML IV SCH (17:42)
== END 2020-12-17 18:15 | DRG 689 ==
LOC: N.ED 12:31 → N.EDINP 14:06 → INTOOBSV 14:06 → N.3E 18:21
PROVIDERS: ADMIT Internal Medicine; ATTEND Internal Medicine

== ENCOUNTER 2021-03-09 17:29 | Inpatient (IN) ==
[2021-03-09] MEDS ORDERED: methylPREDNISolone SOD SUC 125 MG/2 ML VIAL IV STA (18:24)
[2021-03-09] MEDS ORDERED: ONDANSETRON 4 MG/2 ML VIAL IV STA (18:24)
[2021-03-09] MEDS ORDERED: ASPIRIN 325 MG TABLET PO STA (18:24)
[2021-03-09] MEDS ORDERED: NITROGLYCERIN 2% OINT 1 INCH/GM PACK TOP STA (18:24)
[2021-03-09] MEDS ORDERED: MORPHINE 4 MG/1 ML VIAL IV STA (18:24)
[2021-03-09] MEDS ORDERED: DILTIAZEM 50 MG/10 ML VIAL IV STA (19:00)
[2021-03-09] MEDS ORDERED: DILTIAZEM 25 MG/5 ML VIAL IV ONE (19:01)
[2021-03-09] MEDS ORDERED: LABETALOL 20 MG/4 ML SYRINGE IV ONE (19:12)
[2021-03-09] MEDS ORDERED: LABETALOL 20 MG/4 ML SYRINGE IV STA (19:15)
[2021-03-09 19:23] LABS: Basophils % 0.4 % (0.0-0.8); Eosinophils # 0.1 10*3/uL (0.0-0.87); Eosinophils % 1.1 % (0.00-10.9); Hemoglobin 12.6 GM/DL (12.0-16.0); Immature Granulocytes % 0.5 %; Immature Granulocytes Absolute 0.04 #; Lymphocytes # 1.2 10*3/uL (1.4-4.0); Lymphocytes % 15.7 % (21.3-54.2); Mean Corpuscular HGB Conc 31.5 GM/DL (32-36); Mean Corpuscular Volume 86.2 FL (87-102); Mean Platelet Volume 10.2 FL (9.6-12.0); Monocytes % 7.1 % (1.7-12.7); Neutrophils % 75.2 % (38.7-73.9); Platelet Count 442 T/CUMM (130-400); Red Blood Count 4.64 MC/CUMM (3.8-5.5); White Blood Count 7.9 T/CUMM (4-12)
[2021-03-09 19:30] LABS: Bacteria,Urine Many /HPF (Few); Bilirubin,Urine Negative (Negative); Blood, Urine Small mg/dL (Negative); Glucose,Urine (UA) Negative (Negative); Hyaline Casts,Urine 4 /LPF (0-3); Ketones,Urine Negative (Negative); Mucus,Urine Occasional /LPF (Occasional); Nitrite,Urine Positive (Negative); Protein,Urine Negative; RBC,Urine 12 /HPF (0-4); Urine Appearance CLEAR (Clear); Urine Color Yellow (Yellow); Urine Specific Gravity 1.018 (1.001-1.035); Urine Urobilinogen < 2.0 EU/DL (0.2-1.0); WBC,Urine 10 /HPF (0-6)
[2021-03-09 19:33] LABS: INR 1.1; PT Patient Result 11.7 SECS (9.8-11.9)
[2021-03-09 19:41] LABS: Alanine Aminotransferase < 9 U/L (13-56); Albumin 1.6 G/DL (3.4-5.0); Alkaline Phosphatase 84 U/L (45-117); Aspartate Amino Transferase 17 U/L (0-37); Blood Urea Nitrogen 16 MG/DL (7-18); Calcium 8.8 MG/DL (8.5-10.1); Carbon Dioxide 29 MMOL/L (21-32); Estimated Glom Filtration Rate 109 ML/MIN; Glucose 83 MG/DL (74-106); Osmolality,Calculated 282.1 MOS/KG (273-304); Potassium 3.3 MMOL/L (3.5-5.1); Sodium 142 MMOL/L (136-145); Total Protein 4.9 G/DL (6.4-8.2)
[2021-03-09] MEDS ORDERED: MAGNESIUM SULF RIDER 2 GM in PREMIX 1 EACH IV STA (20:03)
[2021-03-09] MEDS ORDERED: POTASSIUM CHLORIDE 20 MEQ TABLET PO STA (20:03)
[2021-03-09] MEDS ORDERED: FUROSEMIDE 40 MG/4 ML VIAL IV STA (20:04)
[2021-03-09] MEDS ORDERED: PIPERACILLIN/TAZOBACTAM 3,375 MG in SODIUM CHLORIDE 0.9% 100 ML IV STA (20:16)
[2021-03-09] MEDS ORDERED: diphenhydrAMINE CAP 25 MG CAPSULE ONE (21:14)
[2021-03-09] MEDS ORDERED: diphenhydrAMINE CAP 25 MG CAPSULE PO ONE (21:16)
[2021-03-09] MEDS ORDERED: ONDANSETRON 4 MG/2 ML VIAL IV PRN (21:51)
[2021-03-09] MEDS ORDERED: ACETAMINOPHEN 325 MG TABLET PO PRN (21:51)
[2021-03-09] MEDS: SODIUM CHLORIDE 0.9% 1,000 ML IV SCH (22:47)
[2021-03-09] MEDS: ALBUTEROL/IPRATROPIUM 3 ML NEB RESP TX SCH (23:50)
[2021-03-10] MEDS: MORPHINE 4 MG/1 ML VIAL IV PRN ×2 (00:07→05:17)
[2021-03-10] MEDS: DOCUSATE SODIUM 100 MG CAPSULE PO SCH ×4 (00:07→23:12)
[2021-03-10] MEDS: methylPREDNISolone SOD SUC 40 MG/1 ML VIAL IV SCH ×3 (02:22→23:11)
[2021-03-10] MEDS: ALBUTEROL/IPRATROPIUM 3 ML NEB RESP TX SCH ×5 (03:00→19:58)
[2021-03-10 05:04] LABS: Hematocrit 40.6 VOL% (35.7-47.0); Immature Granulocytes % 0.6 %; Immature Granulocytes Absolute 0.04 #; Lymphocytes # 0.3 10*3/uL (1.4-4.0); Lymphocytes % 4.1 % (21.3-54.2); Mean Corpuscular Volume 86.2 FL (87-102); Mean Platelet Volume 10.5 FL (9.6-12.0); Monocytes % 0.5 % (1.7-12.7); Neutrophils % 94.8 % (38.7-73.9); Platelet Count 470 T/CUMM (130-400); Red Blood Count 4.71 MC/CUMM (3.8-5.5); Red Cell Distribution Width 17.1 % (9.3-17.3); White Blood Count 6.4 T/CUMM (4-12)
[2021-03-10] MEDS: diphenhydrAMINE CAP 25 MG CAPSULE PO PRN (05:13)
[2021-03-10] MEDS: PIPERACILLIN/TAZOBACTAM 3,375 MG in SODIUM CHLORIDE 0.9% 100 ML IV SCH ×3 (05:17→20:41)
[2021-03-10 05:27] LABS: Alanine Aminotransferase < 9 U/L (13-56); Albumin 1.8 G/DL (3.4-5.0); Alkaline Phosphatase 96 U/L (45-117); Aspartate Amino Transferase 18 U/L (0-37); Blood Urea Nitrogen 14 MG/DL (7-18); Calcium 9.2 MG/DL (8.5-10.1); Carbon Dioxide 28 MMOL/L (21-32); Estimated Glom Filtration Rate 109 ML/MIN; Glucose 119 MG/DL (74-106); HDL Cholesterol 44 MG/DL (40-60); Osmolality,Calculated 278.5 MOS/KG (273-304); Potassium 4.1 MMOL/L (3.5-5.1); Risk Ratio 3.57; Sodium 139 MMOL/L (136-145); Total Protein 5.5 G/DL (6.4-8.2); Triglycerides 60 MG/DL (2-150)
[2021-03-10 05:44] LABS: Lymphocytes 3 % (20-55); Platelet Estimate Adequate; Segmented Neutrophils 96 % (50-85); Total Cells Counted 100
[2021-03-10] MEDS ORDERED: METOPROLOL TARTRATE 25 MG TABLET PO SCH (09:00)
[2021-03-10] MEDS: PANTOPRAZOLE 40 MG VIAL IV SCH (09:54)
[2021-03-10] MEDS: ALBUMIN 25% 25 GM/100 ML VIAL IV SCH ×2 (09:54→17:33)
[2021-03-10] MEDS: ASPIRIN EC 81 MG TABLET PO SCH ×2 (09:56→17:33)
[2021-03-10] MEDS: FUROSEMIDE 40 MG/4 ML VIAL IV SCH (11:18)
[2021-03-10] MEDS: traMADol 50 MG TABLET PO PRN (14:37)
[2021-03-10] MEDS ORDERED: MECLIZINE 25 MG TABLET PO PRN (18:03)
[2021-03-10] MEDS ORDERED: diphenhydrAMINE CAP 25 MG CAPSULE PO PRN (18:03)
[2021-03-10] MEDS ORDERED: BISACODYL 10 MG SUPP RECTAL PRN (18:03)
[2021-03-10] MEDS: METOPROLOL SUCCINATE XL 100 MG TABLET PO SCH (18:31)
[2021-03-10] MEDS: MELATONIN 3 MG TABLET PO SCH (20:41)
[2021-03-10] MEDS: AZELASTINE NASAL 137 MCG/SPRAY 30 ML BOTTLE BOTH NARES SCH (20:41)
[2021-03-10] MEDS: BUDESONIDE/FORMOTEROL 160-4.5 INHALER 6 GM INH SCH (20:41)
[2021-03-10] MEDS: POLYVINYL ALCOHOL 1.4% OPH SOLN 15 ML BOTTLE BOTH EYES SCH (20:42)
[2021-03-10] MEDS: NYSTATIN CREAM 15 GM TUBE TOP SCH (20:42)
[2021-03-10] MEDS: POTASSIUM CHLORIDE 20 MEQ/15 ML UDCUP PO SCH (20:44)
[2021-03-10] MEDS ORDERED: METOPROLOL TARTRATE 50 MG TABLET PO SCH (21:00)
[2021-03-10] MEDS: cloNIDine 0.1 MG TABLET PO SCH (22:09)
[2021-03-10] MEDS: BISACODYL 5 MG TABLET PO SCH (23:12)
[2021-03-11] MEDS: ALBUTEROL/IPRATROPIUM 3 ML NEB RESP TX SCH ×6 (00:13→19:25)
[2021-03-11] MEDS: ALBUMIN 25% 25 GM/100 ML VIAL IV SCH ×3 (00:33→17:21)
[2021-03-11] MEDS: NON-FORMULARY MEDICATION (Zinc Oxide-Cod Liver Oil [Desitin] 40 % Paste) TOP SCH ×3 (01:16→14:04)
[2021-03-11] MEDS: MORPHINE 4 MG/1 ML VIAL IV PRN ×2 (01:16→06:40)
[2021-03-11] MEDS: methylPREDNISolone SOD SUC 40 MG/1 ML VIAL IV SCH ×2 (02:51→12:27)
[2021-03-11] MEDS: SODIUM CHLORIDE 0.9% 1,000 ML IV SCH ×3 (02:51→14:03)
[2021-03-11] MEDS: PIPERACILLIN/TAZOBACTAM 3,375 MG in SODIUM CHLORIDE 0.9% 100 ML IV SCH ×3 (05:40→21:22)
[2021-03-11 05:54] LABS: Hematocrit 36.3 VOL% (35.7-47.0); Hemoglobin 11.1 GM/DL (12.0-16.0); Immature Granulocytes % 0.6 %; Immature Granulocytes Absolute 0.06 #; Lymphocytes # 0.5 10*3/uL (1.4-4.0); Lymphocytes % 4.8 % (21.3-54.2); Mean Corpuscular HGB Conc 30.6 GM/DL (32-36); Mean Corpuscular Volume 87.7 FL (87-102); Mean Platelet Volume 10.1 FL (9.6-12.0); Monocytes % 5.1 % (1.7-12.7); Neutrophils % 89.5 % (38.7-73.9); Platelet Count 395 T/CUMM (130-400); Red Blood Count 4.14 MC/CUMM (3.8-5.5); Red Cell Distribution Width 17.2 % (9.3-17.3); White Blood Count 9.5 T/CUMM (4-12)
[2021-03-11 06:14] LABS: Albumin 2.9 G/DL (3.4-5.0); Bilirubin,Total 0.4 MG/DL (0.2-1.0); Calcium 8.9 MG/DL (8.5-10.1); Osmolality,Calculated 283.3 MOS/KG (273-304); Potassium 3.7 MMOL/L (3.5-5.1); Total Protein 5.7 G/DL (6.4-8.2)
[2021-03-11 06:19] LABS: Hypochromasia Slight; Lymphocytes 8 % (20-55); Microcytosis Slight; Platelet Estimate Adequate; Segmented Neutrophils 89 % (50-85); Total Cells Counted 100
[2021-03-11] MEDS: POTASSIUM CHLORIDE 20 MEQ/15 ML UDCUP PO SCH ×2 (08:45→21:22)
[2021-03-11] MEDS: FUROSEMIDE 40 MG/4 ML VIAL IV SCH (08:45)
[2021-03-11] MEDS: FERROUS SULFATE 325 MG TABLET PO SCH ×2 (08:46→17:21)
[2021-03-11] MEDS: ASPIRIN EC 81 MG TABLET PO SCH (08:46)
[2021-03-11] MEDS: BISACODYL 5 MG TABLET PO SCH (08:46)
[2021-03-11] MEDS: DOCUSATE SODIUM 100 MG CAPSULE PO SCH ×4 (08:46→23:23)
[2021-03-11] MEDS: SERTRALINE 25 MG TABLET PO SCH (08:46)
[2021-03-11] MEDS: MAGNESIUM OXIDE 400 MG TABLET PO SCH (08:46)
[2021-03-11] MEDS: BUDESONIDE/FORMOTEROL 160-4.5 INHALER 6 GM INH SCH ×2 (08:46→21:22)
[2021-03-11] MEDS: METOPROLOL SUCCINATE XL 25 MG TABLET PO SCH (08:46)
[2021-03-11] MEDS: AZELASTINE NASAL 137 MCG/SPRAY 30 ML BOTTLE BOTH NARES SCH ×2 (08:46→21:22)
[2021-03-11] MEDS: METOPROLOL SUCCINATE XL 100 MG TABLET PO SCH (08:46)
[2021-03-11] MEDS: DOXAZOSIN 4 MG TABLET PO SCH (08:46)
[2021-03-11] MEDS: POLYVINYL ALCOHOL 1.4% OPH SOLN 15 ML BOTTLE BOTH EYES SCH ×4 (08:46→21:22)
[2021-03-11] MEDS: PANTOPRAZOLE 40 MG VIAL IV SCH (08:47)
[2021-03-11] MEDS: NYSTATIN CREAM 15 GM TUBE TOP SCH (10:28)
[2021-03-11] MEDS: traMADol 50 MG TABLET PO PRN (12:27)
[2021-03-11] MEDS: cloNIDine 0.1 MG TABLET PO SCH (21:21)
[2021-03-11] MEDS: MELATONIN 3 MG TABLET PO SCH (21:21)
[2021-03-11] MEDS ORDERED: cloNIDine 0.1 MG TABLET PO ONE (23:13)
[2021-03-12] MEDS: ALBUMIN 25% 25 GM/100 ML VIAL IV SCH ×2 (00:27→08:51)
[2021-03-12] MEDS: NYSTATIN CREAM 15 GM TUBE TOP SCH ×3 (00:32→21:11)
[2021-03-12] MEDS: ALBUTEROL/IPRATROPIUM 3 ML NEB RESP TX SCH ×7 (02:04→23:59)
[2021-03-12] MEDS: PIPERACILLIN/TAZOBACTAM 3,375 MG in SODIUM CHLORIDE 0.9% 100 ML IV SCH ×3 (04:03→21:08)
[2021-03-12] MEDS: SODIUM CHLORIDE 0.9% 1,000 ML IV SCH (04:03)
[2021-03-12] MEDS: MORPHINE 4 MG/1 ML VIAL IV PRN (04:03)
[2021-03-12] MEDS: methylPREDNISolone SOD SUC 40 MG/1 ML VIAL IV SCH ×5 (04:29→21:10)
[2021-03-12] MEDS: BISACODYL 5 MG TABLET PO SCH ×3 (05:37→21:19)
[2021-03-12] MEDS: NON-FORMULARY MEDICATION (Zinc Oxide-Cod Liver Oil [Desitin] 40 % Paste) TOP SCH ×4 (05:37→21:14)
[2021-03-12 06:38] LABS: Albumin 3.4 G/DL (3.4-5.0); Bilirubin,Total 0.8 MG/DL (0.2-1.0); Calcium 8.8 MG/DL (8.5-10.1); Osmolality,Calculated 284.1 MOS/KG (273-304); Total Protein 5.7 G/DL (6.4-8.2)
[2021-03-12] MEDS: METOPROLOL SUCCINATE XL 100 MG TABLET PO SCH (08:53)
[2021-03-12] MEDS: SERTRALINE 25 MG TABLET PO SCH (08:53)
[2021-03-12] MEDS: ASPIRIN EC 81 MG TABLET PO SCH (08:53)
[2021-03-12] MEDS: traMADol 50 MG TABLET PO PRN (08:53)
[2021-03-12] MEDS: FUROSEMIDE 40 MG/4 ML VIAL IV SCH (08:53)
[2021-03-12] MEDS: MAGNESIUM OXIDE 400 MG TABLET PO SCH (08:53)
[2021-03-12] MEDS: POTASSIUM CHLORIDE 20 MEQ/15 ML UDCUP PO SCH ×2 (08:53→21:11)
[2021-03-12] MEDS: METOPROLOL SUCCINATE XL 25 MG TABLET PO SCH (08:53)
[2021-03-12] MEDS: DOXAZOSIN 4 MG TABLET PO SCH (08:53)
[2021-03-12] MEDS: POLYVINYL ALCOHOL 1.4% OPH SOLN 15 ML BOTTLE BOTH EYES SCH ×4 (08:54→21:10)
[2021-03-12] MEDS: FERROUS SULFATE 325 MG TABLET PO SCH ×2 (08:54→16:50)
[2021-03-12] MEDS: BUDESONIDE/FORMOTEROL 160-4.5 INHALER 6 GM INH SCH ×2 (08:54→21:52)
[2021-03-12] MEDS: AZELASTINE NASAL 137 MCG/SPRAY 30 ML BOTTLE BOTH NARES SCH ×2 (08:55→21:10)
[2021-03-12] MEDS: DOCUSATE SODIUM 100 MG CAPSULE PO SCH ×2 (08:57→21:14)
[2021-03-12] MEDS: SODIUM HYPOCHLORITE 0.5% TOP SCH (09:42)
[2021-03-12] MEDS ORDERED: POTASSIUM CHLORIDE 20 MEQ/15 ML UDCUP PO ONE (11:00)
[2021-03-12] MEDS: PANTOPRAZOLE 40 MG VIAL IV SCH (12:02)
[2021-03-12] MEDS ORDERED: methylPREDNISolone SOD SUC 40 MG/1 ML VIAL IV SCH (13:30)
[2021-03-12] MEDS: MELATONIN 3 MG TABLET PO SCH (21:19)
[2021-03-13] MEDS: methylPREDNISolone SOD SUC 40 MG/1 ML VIAL IV SCH ×4 (02:44→20:47)
[2021-03-13] MEDS: ALBUTEROL/IPRATROPIUM 3 ML NEB RESP TX SCH ×6 (03:42→23:40)
[2021-03-13] MEDS: PIPERACILLIN/TAZOBACTAM 3,375 MG in SODIUM CHLORIDE 0.9% 100 ML IV SCH ×3 (05:02→20:48)
[2021-03-13 06:07] LABS: Basophils % 0.1 % (0.0-0.8); Hematocrit 34.2 VOL% (35.7-47.0); Hemoglobin 10.7 GM/DL (12.0-16.0); Immature Granulocytes % 0.8 %; Immature Granulocytes Absolute 0.06 #; Lymphocytes # 0.3 10*3/uL (1.4-4.0); Lymphocytes % 3.5 % (21.3-54.2); Mean Corpuscular HGB Conc 31.3 GM/DL (32-36); Mean Corpuscular Volume 86.8 FL (87-102); Mean Platelet Volume 10.6 FL (9.6-12.0); Monocytes % 4.9 % (1.7-12.7); Neutrophils % 90.7 % (38.7-73.9); Platelet Count 299 T/CUMM (130-400); Red Blood Count 3.94 MC/CUMM (3.8-5.5); Red Cell Distribution Width 16.8 % (9.3-17.3); White Blood Count 7.8 T/CUMM (4-12)
[2021-03-13 06:35] LABS: Alanine Aminotransferase < 9 U/L (13-56); Alkaline Phosphatase 51 U/L (45-117); Aspartate Amino Transferase 15 U/L (0-37); Blood Urea Nitrogen 14 MG/DL (7-18); Calcium 9.1 MG/DL (8.5-10.1); Carbon Dioxide 31 MMOL/L (21-32); Estimated Glom Filtration Rate 101 ML/MIN; Glucose 115 MG/DL (74-106); Osmolality,Calculated 282.3 MOS/KG (273-304); Potassium 3.3 MMOL/L (3.5-5.1); Sodium 141 MMOL/L (136-145); Total Protein 5.5 G/DL (6.4-8.2)
[2021-03-13 07:55] LABS: Segmented Neutrophils 95 % (50-85); Total Cells Counted 100
[2021-03-13 07:56] LABS: Hypochromasia 2+; Platelet Estimate Normal
[2021-03-13] MEDS: PANTOPRAZOLE 40 MG VIAL IV SCH (09:28)
[2021-03-13] MEDS: FUROSEMIDE 40 MG/4 ML VIAL IV SCH (09:28)
[2021-03-13] MEDS: POTASSIUM CHLORIDE 20 MEQ/15 ML UDCUP PO SCH ×2 (09:33→20:48)
[2021-03-13] MEDS: SERTRALINE 25 MG TABLET PO SCH (09:33)
[2021-03-13] MEDS: FERROUS SULFATE 325 MG TABLET PO SCH ×2 (09:34→17:04)
[2021-03-13] MEDS: DOXAZOSIN 4 MG TABLET PO SCH (09:34)
[2021-03-13] MEDS: METOPROLOL SUCCINATE XL 25 MG TABLET PO SCH (09:34)
[2021-03-13] MEDS: MAGNESIUM OXIDE 400 MG TABLET PO SCH (09:34)
[2021-03-13] MEDS: METOPROLOL SUCCINATE XL 100 MG TABLET PO SCH (09:34)
[2021-03-13] MEDS: DOCUSATE SODIUM 100 MG CAPSULE PO SCH ×2 (09:34→20:47)
[2021-03-13] MEDS: ASPIRIN EC 81 MG TABLET PO SCH (09:34)
[2021-03-13] MEDS: BISACODYL 5 MG TABLET PO SCH ×2 (09:34→20:46)
[2021-03-13] MEDS: AZELASTINE NASAL 137 MCG/SPRAY 30 ML BOTTLE BOTH NARES SCH ×2 (09:35→20:47)
[2021-03-13] MEDS: NYSTATIN CREAM 15 GM TUBE TOP SCH ×2 (09:35→20:47)
[2021-03-13] MEDS: BUDESONIDE/FORMOTEROL 160-4.5 INHALER 6 GM INH SCH ×2 (09:35→20:48)
[2021-03-13] MEDS: POLYVINYL ALCOHOL 1.4% OPH SOLN 15 ML BOTTLE BOTH EYES SCH ×4 (09:35→20:47)
[2021-03-13] MEDS: NON-FORMULARY MEDICATION (Zinc Oxide-Cod Liver Oil [Desitin] 40 % Paste) TOP SCH ×4 (09:36→21:11)
[2021-03-13] MEDS ORDERED: NITROGLYCERIN SL 0.4 MG TABLET SL PRN (17:38)
[2021-03-13] MEDS: MELATONIN 3 MG TABLET PO SCH (20:46)
[2021-03-13] MEDS: traMADol 50 MG TABLET PO PRN (21:02)
[2021-03-14] MEDS: methylPREDNISolone SOD SUC 40 MG/1 ML VIAL IV SCH ×4 (02:43→21:00)
[2021-03-14] MEDS: ALBUTEROL/IPRATROPIUM 3 ML NEB RESP TX SCH ×6 (03:03→23:28)
[2021-03-14] MEDS: PIPERACILLIN/TAZOBACTAM 3,375 MG in SODIUM CHLORIDE 0.9% 100 ML IV SCH ×3 (05:14→21:01)
[2021-03-14 05:43] LABS: Hematocrit 33.8 VOL% (35.7-47.0); Hemoglobin 10.4 GM/DL (12.0-16.0); Immature Granulocytes % 0.6 %; Immature Granulocytes Absolute 0.04 #; Lymphocytes # 0.4 10*3/uL (1.4-4.0); Lymphocytes % 5.5 % (21.3-54.2); Mean Corpuscular HGB Conc 30.8 GM/DL (32-36); Mean Corpuscular Volume 87.3 FL (87-102); Mean Platelet Volume 11.2 FL (9.6-12.0); Monocytes % 6.1 % (1.7-12.7); Neutrophils % 87.8 % (38.7-73.9); Platelet Count 306 T/CUMM (130-400); Red Blood Count 3.87 MC/CUMM (3.8-5.5); Red Cell Distribution Width 17.2 % (9.3-17.3); White Blood Count 6.8 T/CUMM (4-12)
[2021-03-14 06:09] LABS: Alanine Aminotransferase < 6 U/L (13-56); Albumin 2.7 G/DL (3.4-5.0); Alkaline Phosphatase 48 U/L (45-117); Aspartate Amino Transferase 10 U/L (0-37); Blood Urea Nitrogen 18 MG/DL (7-18); Carbon Dioxide 33 MMOL/L (21-32); Estimated Glom Filtration Rate 102 ML/MIN; Glucose 126 MG/DL (74-106); Osmolality,Calculated 286.1 MOS/KG (273-304); Potassium 3.2 MMOL/L (3.5-5.1); Sodium 142 MMOL/L (136-145); Total Protein 5.1 G/DL (6.4-8.2)
[2021-03-14] MEDS: AZELASTINE NASAL 137 MCG/SPRAY 30 ML BOTTLE BOTH NARES SCH ×2 (09:18→21:00)
[2021-03-14] MEDS: POLYVINYL ALCOHOL 1.4% OPH SOLN 15 ML BOTTLE BOTH EYES SCH ×4 (09:19→21:00)
[2021-03-14] MEDS: SERTRALINE 25 MG TABLET PO SCH (09:19)
[2021-03-14] MEDS: ASPIRIN EC 81 MG TABLET PO SCH (09:19)
[2021-03-14] MEDS: DOXAZOSIN 4 MG TABLET PO SCH (09:19)
[2021-03-14] MEDS: METOPROLOL SUCCINATE XL 25 MG TABLET PO SCH (09:19)
[2021-03-14] MEDS: MAGNESIUM OXIDE 400 MG TABLET PO SCH (09:20)
[2021-03-14] MEDS: METOPROLOL SUCCINATE XL 100 MG TABLET PO SCH (09:20)
[2021-03-14] MEDS: traMADol 50 MG TABLET PO PRN ×2 (09:21→21:27)
[2021-03-14] MEDS: FUROSEMIDE 40 MG/4 ML VIAL IV SCH (09:22)
[2021-03-14] MEDS: PANTOPRAZOLE 40 MG VIAL IV SCH (09:22)
[2021-03-14] MEDS: FERROUS SULFATE 325 MG TABLET PO SCH ×2 (09:22→16:17)
[2021-03-14] MEDS: DOCUSATE SODIUM 100 MG CAPSULE PO SCH ×2 (09:22→20:59)
[2021-03-14] MEDS: NYSTATIN CREAM 15 GM TUBE TOP SCH ×2 (09:23→21:00)
[2021-03-14] MEDS: POTASSIUM CHLORIDE 20 MEQ/15 ML UDCUP PO SCH ×2 (09:23→21:01)
[2021-03-14] MEDS: BISACODYL 5 MG TABLET PO SCH ×2 (09:23→20:59)
[2021-03-14] MEDS: BUDESONIDE/FORMOTEROL 160-4.5 INHALER 6 GM INH SCH ×2 (09:24→21:01)
[2021-03-14] MEDS: NON-FORMULARY MEDICATION (Zinc Oxide-Cod Liver Oil [Desitin] 40 % Paste) TOP SCH ×3 (10:12→21:33)
[2021-03-14] MEDS: SODIUM HYPOCHLORITE 0.5% TOP SCH (10:14)
[2021-03-14] MEDS: MELATONIN 3 MG TABLET PO SCH (20:59)
[2021-03-15] MEDS: diphenhydrAMINE CAP 25 MG CAPSULE PO PRN ×2 (01:24→20:33)
[2021-03-15] MEDS: ALBUTEROL/IPRATROPIUM 3 ML NEB RESP TX SCH ×5 (02:30→19:08)
[2021-03-15] MEDS: methylPREDNISolone SOD SUC 40 MG/1 ML VIAL IV SCH ×4 (02:31→20:31)
[2021-03-15] MEDS: MORPHINE 4 MG/1 ML VIAL IV PRN ×3 (03:04→14:56)
[2021-03-15] MEDS: PIPERACILLIN/TAZOBACTAM 3,375 MG in SODIUM CHLORIDE 0.9% 100 ML IV SCH ×3 (05:19→20:33)
[2021-03-15 05:46] LABS: Basophils % 0.1 % (0.0-0.8); Hematocrit 35.5 VOL% (35.7-47.0); Hemoglobin 11.2 GM/DL (12.0-16.0); Immature Granulocytes % 0.8 %; Immature Granulocytes Absolute 0.07 #; Lymphocytes # 0.3 10*3/uL (1.4-4.0); Mean Corpuscular HGB Conc 31.5 GM/DL (32-36); Mean Corpuscular Volume 85.7 FL (87-102); Mean Platelet Volume 11.1 FL (9.6-12.0); Monocytes % 4.4 % (1.7-12.7); Neutrophils % 91.7 % (38.7-73.9); Platelet Count 335 T/CUMM (130-400); Red Blood Count 4.14 MC/CUMM (3.8-5.5); White Blood Count 9.2 T/CUMM (4-12)
[2021-03-15 06:09] LABS: Lymphocytes 5 % (20-55); Segmented Neutrophils 91 % (50-85); Total Cells Counted 100
[2021-03-15 06:09] LABS: Calcium 8.9 MG/DL (8.5-10.1); Osmolality,Calculated 285.3 MOS/KG (273-304); Potassium 3.1 MMOL/L (3.5-5.1)
[2021-03-15 06:10] LABS: Hypochromasia 2+; Microcytosis 1+; Ovalocytes Slight; Platelet Estimate Normal
[2021-03-15 06:11] LABS: Alanine Aminotransferase 12 U/L (13-56); Albumin 2.6 G/DL (3.4-5.0); Alkaline Phosphatase 57 U/L (45-117); Aspartate Amino Transferase 18 U/L (0-37); Bilirubin,Indirect 0.3 MG/DL (0.0-1.0); Bilirubin,Total < 0.39 MG/DL (0.2-1.0); Total Protein 5.3 G/DL (6.4-8.2)
[2021-03-15] MEDS ORDERED: POTASSIUM CHLORIDE 20 MEQ PACK PO ONE (08:30)
[2021-03-15] MEDS: POLYVINYL ALCOHOL 1.4% OPH SOLN 15 ML BOTTLE BOTH EYES SCH ×4 (08:45→20:31)
[2021-03-15] MEDS: AZELASTINE NASAL 137 MCG/SPRAY 30 ML BOTTLE BOTH NARES SCH ×2 (08:45→20:32)
[2021-03-15] MEDS: FUROSEMIDE 40 MG/4 ML VIAL IV SCH (08:46)
[2021-03-15] MEDS: BUDESONIDE/FORMOTEROL 160-4.5 INHALER 6 GM INH SCH ×2 (08:46→20:32)
[2021-03-15] MEDS: NYSTATIN CREAM 15 GM TUBE TOP SCH ×2 (08:46→20:32)
[2021-03-15] MEDS: METOPROLOL SUCCINATE XL 25 MG TABLET PO SCH (08:46)
[2021-03-15] MEDS: POTASSIUM CHLORIDE 20 MEQ/15 ML UDCUP PO SCH ×2 (08:46→20:32)
[2021-03-15] MEDS: FERROUS SULFATE 325 MG TABLET PO SCH ×2 (08:46→17:40)
[2021-03-15] MEDS: MAGNESIUM OXIDE 400 MG TABLET PO SCH (08:47)
[2021-03-15] MEDS: DOCUSATE SODIUM 100 MG CAPSULE PO SCH ×2 (08:47→20:30)
[2021-03-15] MEDS: BISACODYL 5 MG TABLET PO SCH ×2 (08:47→20:32)
[2021-03-15] MEDS: METOPROLOL SUCCINATE XL 100 MG TABLET PO SCH (08:47)
[2021-03-15] MEDS: ASPIRIN EC 81 MG TABLET PO SCH (08:47)
[2021-03-15] MEDS: SERTRALINE 25 MG TABLET PO SCH (08:47)
[2021-03-15] MEDS: PANTOPRAZOLE 40 MG VIAL IV SCH (08:48)
[2021-03-15] MEDS: DOXAZOSIN 4 MG TABLET PO SCH (08:50)
[2021-03-15] MEDS ORDERED: MAGNESIUM SULF INJ 3 GM in SODIUM CHLORIDE 0.9% 100 ML IV ONE (09:30)
[2021-03-15] MEDS: NON-FORMULARY MEDICATION (Zinc Oxide-Cod Liver Oil [Desitin] 40 % Paste) TOP SCH ×3 (10:35→20:33)
[2021-03-15] MEDS: RIVAROXABAN 15 MG TABLET PO SCH (17:40)
[2021-03-15] MEDS: MELATONIN 3 MG TABLET PO SCH (20:30)
[2021-03-16] MEDS: ALBUTEROL/IPRATROPIUM 3 ML NEB RESP TX SCH ×7 (00:01→23:18)
[2021-03-16] MEDS: methylPREDNISolone SOD SUC 40 MG/1 ML VIAL IV SCH ×4 (01:13→21:41)
[2021-03-16] MEDS: PIPERACILLIN/TAZOBACTAM 3,375 MG in SODIUM CHLORIDE 0.9% 100 ML IV SCH ×3 (05:26→21:41)
[2021-03-16] MEDS: FERROUS SULFATE 325 MG TABLET PO SCH ×2 (09:26→17:48)
[2021-03-16] MEDS: diphenhydrAMINE CAP 25 MG CAPSULE PO PRN (09:26)
[2021-03-16] MEDS: POLYVINYL ALCOHOL 1.4% OPH SOLN 15 ML BOTTLE BOTH EYES SCH ×4 (09:27→21:40)
[2021-03-16] MEDS: ASPIRIN EC 81 MG TABLET PO SCH (09:27)
[2021-03-16] MEDS: MAGNESIUM OXIDE 400 MG TABLET PO SCH (09:27)
[2021-03-16] MEDS: RIVAROXABAN 15 MG TABLET PO SCH ×2 (09:27→17:48)
[2021-03-16] MEDS: SERTRALINE 25 MG TABLET PO SCH (09:27)
[2021-03-16] MEDS: METOPROLOL SUCCINATE XL 100 MG TABLET PO SCH (09:27)
[2021-03-16] MEDS: DOXAZOSIN 4 MG TABLET PO SCH (09:27)
[2021-03-16] MEDS: METOPROLOL SUCCINATE XL 25 MG TABLET PO SCH (09:27)
[2021-03-16] MEDS: FUROSEMIDE 40 MG TABLET PO SCH (09:27)
[2021-03-16] MEDS: AZELASTINE NASAL 137 MCG/SPRAY 30 ML BOTTLE BOTH NARES SCH ×2 (09:28→21:40)
[2021-03-16] MEDS: NYSTATIN CREAM 15 GM TUBE TOP SCH ×2 (09:28→21:40)
[2021-03-16] MEDS: POTASSIUM CHLORIDE 20 MEQ/15 ML UDCUP PO SCH ×2 (09:28→21:40)
[2021-03-16] MEDS: NON-FORMULARY MEDICATION (Zinc Oxide-Cod Liver Oil [Desitin] 40 % Paste) TOP SCH ×3 (09:29→22:26)
[2021-03-16] MEDS: BUDESONIDE/FORMOTEROL 160-4.5 INHALER 6 GM INH SCH ×2 (09:29→21:40)
[2021-03-16] MEDS: SODIUM HYPOCHLORITE 0.5% TOP SCH (09:29)
[2021-03-16] MEDS: OMEPRAZOLE ODT 20 MG TABLET PO SCH (09:29)
[2021-03-16] MEDS: BISACODYL 5 MG TABLET PO SCH ×2 (14:16→22:25)
[2021-03-16] MEDS: DOCUSATE SODIUM 100 MG CAPSULE PO SCH ×2 (14:16→21:39)
[2021-03-16] MEDS: traMADol 50 MG TABLET PO PRN (15:23)
[2021-03-16] MEDS: HYDROCORTISONE 1% CREAM 28 GM TUBE TOP PRN ×2 (15:24→21:40)
[2021-03-16] MEDS ORDERED: POTASSIUM CHLORIDE 20 MEQ TABLET PO ONE (17:43)
[2021-03-16] MEDS ORDERED: MAGNESIUM SULF RIDER 2 GM/50 ML PREMIX IV ONE (17:43)
[2021-03-16] MEDS: MORPHINE 4 MG/1 ML VIAL IV PRN (18:45)
[2021-03-16] MEDS: MELATONIN 3 MG TABLET PO SCH (23:28)
[2021-03-17] MEDS: ALBUTEROL/IPRATROPIUM 3 ML NEB RESP TX SCH ×5 (02:13→19:38)
[2021-03-17] MEDS: methylPREDNISolone SOD SUC 40 MG/1 ML VIAL IV SCH ×4 (02:33→21:52)
[2021-03-17] MEDS: PIPERACILLIN/TAZOBACTAM 3,375 MG in SODIUM CHLORIDE 0.9% 100 ML IV SCH ×2 (05:52→12:27)
[2021-03-17] MEDS: MORPHINE 4 MG/1 ML VIAL IV PRN (06:03)
[2021-03-17 06:53] LABS: Calcium 8.6 MG/DL (8.5-10.1); Osmolality,Calculated 283.4 MOS/KG (273-304); Potassium 3.4 MMOL/L (3.5-5.1)
[2021-03-17] MEDS: FERROUS SULFATE 325 MG TABLET PO SCH ×2 (11:03→16:25)
[2021-03-17] MEDS: ASPIRIN EC 81 MG TABLET PO SCH (11:04)
[2021-03-17] MEDS: AZELASTINE NASAL 137 MCG/SPRAY 30 ML BOTTLE BOTH NARES SCH ×2 (11:04→21:54)
[2021-03-17] MEDS: POLYVINYL ALCOHOL 1.4% OPH SOLN 15 ML BOTTLE BOTH EYES SCH ×4 (11:04→21:54)
[2021-03-17] MEDS: DOXAZOSIN 4 MG TABLET PO SCH (11:04)
[2021-03-17] MEDS: RIVAROXABAN 15 MG TABLET PO SCH ×2 (11:04→16:25)
[2021-03-17] MEDS: POTASSIUM CHLORIDE 20 MEQ TABLET PO SCH ×2 (11:05→21:53)
[2021-03-17] MEDS: NYSTATIN CREAM 15 GM TUBE TOP SCH ×2 (11:05→21:54)
[2021-03-17] MEDS: MAGNESIUM OXIDE 400 MG TABLET PO SCH (11:05)
[2021-03-17] MEDS: FUROSEMIDE 40 MG TABLET PO SCH (11:05)
[2021-03-17] MEDS: POTASSIUM CHLORIDE 20 MEQ/15 ML UDCUP PO SCH ×2 (11:05→22:20)
[2021-03-17] MEDS: OMEPRAZOLE ODT 20 MG TABLET PO SCH (11:05)
[2021-03-17] MEDS: DOCUSATE SODIUM 100 MG CAPSULE PO SCH ×2 (11:05→22:19)
[2021-03-17] MEDS: BISACODYL 5 MG TABLET PO SCH ×2 (11:05→22:20)
[2021-03-17] MEDS: METOPROLOL SUCCINATE XL 25 MG TABLET PO SCH (11:06)
[2021-03-17] MEDS: NON-FORMULARY MEDICATION (Zinc Oxide-Cod Liver Oil [Desitin] 40 % Paste) TOP SCH ×3 (11:06→22:20)
[2021-03-17] MEDS: BUDESONIDE/FORMOTEROL 160-4.5 INHALER 6 GM INH SCH ×2 (11:06→21:54)
[2021-03-17] MEDS: SERTRALINE 25 MG TABLET PO SCH (11:06)
[2021-03-17] MEDS: METOPROLOL SUCCINATE XL 100 MG TABLET PO SCH (11:06)
[2021-03-17] MEDS: diphenhydrAMINE CAP 25 MG CAPSULE PO PRN (15:37)
[2021-03-17] MEDS: traMADol 50 MG TABLET PO PRN ×2 (15:38→21:53)
[2021-03-17] MEDS: MELATONIN 3 MG TABLET PO SCH (21:52)
[2021-03-17] MEDS: HYDROCORTISONE 1% CREAM 28 GM TUBE TOP PRN (21:55)
[2021-03-18] MEDS: ALBUTEROL/IPRATROPIUM 3 ML NEB RESP TX SCH ×5 (00:02→15:23)
[2021-03-18] MEDS: methylPREDNISolone SOD SUC 40 MG/1 ML VIAL IV SCH ×3 (03:58→15:14)
[2021-03-18 06:36] LABS: Basophils % 0.1 % (0.0-0.8); Hematocrit 35.6 VOL% (35.7-47.0); Immature Granulocytes % 1.9 %; Immature Granulocytes Absolute 0.18 #; Lymphocytes # 0.4 10*3/uL (1.4-4.0); Lymphocytes % 3.9 % (21.3-54.2); Mean Corpuscular HGB Conc 30.9 GM/DL (32-36); Mean Corpuscular Volume 87.3 FL (87-102); Mean Platelet Volume 11.5 FL (9.6-12.0); Monocytes % 6.2 % (1.7-12.7); Neutrophils % 87.9 % (38.7-73.9); Platelet Count 313 T/CUMM (130-400); Red Blood Count 4.08 MC/CUMM (3.8-5.5); Red Cell Distribution Width 16.8 % (9.3-17.3); White Blood Count 9.5 T/CUMM (4-12)
[2021-03-18 06:51] LABS: Calcium 8.4 MG/DL (8.5-10.1); Osmolality,Calculated 277.8 MOS/KG (273-304); Potassium 3.5 MMOL/L (3.5-5.1)
[2021-03-18 06:56] LABS: Hypochromasia Slight; Lymphocytes 5 % (20-55); Microcytosis Slight; Platelet Estimate Adequate; Segmented Neutrophils 93 % (50-85); Total Cells Counted 100
[2021-03-18] MEDS: RIVAROXABAN 15 MG TABLET PO SCH (08:24)
[2021-03-18] MEDS: FERROUS SULFATE 325 MG TABLET PO SCH (08:24)
[2021-03-18] MEDS: ASPIRIN EC 81 MG TABLET PO SCH (08:26)
[2021-03-18] MEDS: POLYVINYL ALCOHOL 1.4% OPH SOLN 15 ML BOTTLE BOTH EYES SCH ×2 (08:26→12:47)
[2021-03-18] MEDS: AZELASTINE NASAL 137 MCG/SPRAY 30 ML BOTTLE BOTH NARES SCH (08:26)
[2021-03-18] MEDS: DOXAZOSIN 4 MG TABLET PO SCH (08:26)
[2021-03-18] MEDS: DOCUSATE SODIUM 100 MG CAPSULE PO SCH (08:27)
[2021-03-18] MEDS: POTASSIUM CHLORIDE 20 MEQ TABLET PO SCH (08:27)
[2021-03-18] MEDS: BISACODYL 5 MG TABLET PO SCH (08:27)
[2021-03-18] MEDS: OMEPRAZOLE ODT 20 MG TABLET PO SCH (08:28)
[2021-03-18] MEDS: NYSTATIN CREAM 15 GM TUBE TOP SCH (08:28)
[2021-03-18] MEDS: MAGNESIUM OXIDE 400 MG TABLET PO SCH (08:28)
[2021-03-18] MEDS: FUROSEMIDE 40 MG TABLET PO SCH (08:28)
[2021-03-18] MEDS: POTASSIUM CHLORIDE 20 MEQ/15 ML UDCUP PO SCH (08:28)
[2021-03-18] MEDS: BUDESONIDE/FORMOTEROL 160-4.5 INHALER 6 GM INH SCH (08:29)
[2021-03-18] MEDS: METOPROLOL SUCCINATE XL 25 MG TABLET PO SCH (08:29)
[2021-03-18] MEDS: SODIUM HYPOCHLORITE 0.5% TOP SCH (09:29)
[2021-03-18] MEDS: METOPROLOL SUCCINATE XL 100 MG TABLET PO SCH (09:29)
[2021-03-18] MEDS: NON-FORMULARY MEDICATION (Zinc Oxide-Cod Liver Oil [Desitin] 40 % Paste) TOP SCH ×2 (09:30→15:12)
[2021-03-18] MEDS: SERTRALINE 25 MG TABLET PO SCH (09:30)
[2021-03-18] MEDS: diphenhydrAMINE CAP 25 MG CAPSULE PO PRN (10:46)
[2021-03-18 11:41] VITALS: BP 175/136
== END 2021-03-18 16:44 | DRG 291 ==
LOC: EDUNIT# → EDBD → N.ED 17:29 → N.EDINP 20:17 → N.3E 21:49
PROVIDERS: ADMIT Internal Medicine; ATTEND Internal Medicine

== ENCOUNTER 2021-05-04 21:54 | Inpatient (IN) ==
[2021-05-04 22:15] LABS: Basophils % 0.2 % (0.0-0.8); Eosinophils # 0.1 10*3/uL (0.0-0.87); Eosinophils % 0.6 % (0.00-10.9); Hematocrit 36.9 VOL% (35.7-47.0); Hemoglobin 11.1 GM/DL (12.0-16.0); Immature Granulocytes % 0.9 %; Immature Granulocytes Absolute 0.07 #; Lymphocytes # 1.2 10*3/uL (1.4-4.0); Lymphocytes % 14.5 % (21.3-54.2); Mean Corpuscular HGB Conc 30.1 GM/DL (32-36); Mean Corpuscular Volume 93.4 FL (87-102); Mean Platelet Volume 9.9 FL (9.6-12.0); Monocytes % 6.5 % (1.7-12.7); Neutrophils % 77.3 % (38.7-73.9); Platelet Count 315 T/CUMM (130-400); Red Blood Count 3.95 MC/CUMM (3.8-5.5); Red Cell Distribution Width 15.9 % (9.3-17.3)
[2021-05-04 22:26] LABS: INR 1.2; PT Patient Result 13.4 SECS (10.5-12.0)
[2021-05-04 22:35] LABS: Albumin 1.9 G/DL (3.4-5.0); Bilirubin,Total 0.4 MG/DL (0.2-1.0); Calcium 8.7 MG/DL (8.5-10.1); Osmolality,Calculated 282.4 MOS/KG (273-304); Potassium 4.3 MMOL/L (3.5-5.1); Total Protein 5.5 G/DL (6.4-8.2)
[2021-05-04] MEDS ORDERED: methylPREDNISolone SOD SUC 125 MG/2 ML VIAL IV STA (22:41)
[2021-05-04] MEDS ORDERED: ALBUTEROL/IPRATROPIUM 3 ML NEB RESP TX STA (22:41)
[2021-05-04] MEDS ORDERED: FUROSEMIDE 40 MG/4 ML VIAL IV STA (23:00)
[2021-05-05] MEDS ORDERED: ONDANSETRON 4 MG/2 ML VIAL IV PRN (06:22)
[2021-05-05] MEDS ORDERED: ACETAMINOPHEN 325 MG TABLET PO PRN (06:22)
[2021-05-05] MEDS: ALBUTEROL/IPRATROPIUM 3 ML NEB RESP TX SCH ×5 (07:33→20:01)
[2021-05-05] MEDS: methylPREDNISolone SOD SUC 40 MG/1 ML VIAL IV SCH ×3 (10:37→20:44)
[2021-05-05] MEDS: ASPIRIN 325 MG TABLET PO SCH (10:37)
[2021-05-05] MEDS: FUROSEMIDE 40 MG/4 ML VIAL IV SCH (10:37)
[2021-05-05] MEDS: PANTOPRAZOLE 40 MG TABLET PO SCH (10:37)
[2021-05-05] MEDS ORDERED: BISACODYL 10 MG SUPP RECTAL PRN (16:36)
[2021-05-05] MEDS ORDERED: MECLIZINE 25 MG TABLET PO PRN (16:36)
[2021-05-05] MEDS ORDERED: diphenhydrAMINE CAP 25 MG CAPSULE PO PRN (16:36)
[2021-05-05] MEDS ORDERED: SODIUM HYPOCHLORITE 0.5% TOP SCH (16:45)
[2021-05-05] MEDS: SALIVA SUBSTITUTE COMBO NO 9 SWISH/SPIT SCH ×2 (17:57→21:50)
[2021-05-05] MEDS: traMADol 50 MG TABLET PO SCH ×2 (18:35→20:43)
[2021-05-05] MEDS: POLYVINYL ALCOHOL 1.4% OPH SOLN 15 ML BOTTLE BOTH EYES SCH ×2 (18:35→20:47)
[2021-05-05] MEDS: FERROUS SULFATE 325 MG TABLET PO SCH (18:35)
[2021-05-05] MEDS: FUROSEMIDE 40 MG TABLET PO SCH (18:35)
[2021-05-05] MEDS: ALBUMIN 25% 25 GM/100 ML VIAL IV SCH (18:36)
[2021-05-05] MEDS: MELATONIN 3 MG TABLET PO SCH (20:43)
[2021-05-05] MEDS: POTASSIUM CHLORIDE 20 MEQ/15 ML UDCUP PO SCH (20:43)
[2021-05-05] MEDS: DOCUSATE SODIUM 100 MG CAPSULE PO SCH (20:43)
[2021-05-05] MEDS: BISACODYL 5 MG TABLET PO SCH (20:43)
[2021-05-05] MEDS: ZINC OXIDE PASTE 113 GM TUBE TOP SCH (20:48)
[2021-05-05] MEDS: NYSTATIN CREAM 15 GM TUBE TOP SCH (20:48)
[2021-05-05] MEDS: AZELASTINE 0.05% BOTH EYES SCH (20:48)
[2021-05-05] MEDS: PROTEIN HYDROLYSATE MILK PO SCH (20:49)
[2021-05-06] MEDS: ALBUTEROL/IPRATROPIUM 3 ML NEB RESP TX SCH ×7 (00:15→22:50)
[2021-05-06] MEDS: ALBUMIN 25% 25 GM/100 ML VIAL IV SCH ×3 (02:14→18:07)
[2021-05-06] MEDS: SALIVA SUBSTITUTE COMBO NO 9 SWISH/SPIT SCH ×3 (03:47→18:11)
[2021-05-06 06:11] LABS: Basophils % 0.1 % (0.0-0.8); Hematocrit 33.8 VOL% (35.7-47.0); Hemoglobin 10.6 GM/DL (12.0-16.0); Immature Granulocytes % 0.6 %; Immature Granulocytes Absolute 0.05 #; Lymphocytes # 0.6 10*3/uL (1.4-4.0); Lymphocytes % 6.2 % (21.3-54.2); Mean Corpuscular HGB Conc 31.4 GM/DL (32-36); Mean Corpuscular Volume 90.6 FL (87-102); Mean Platelet Volume 10.5 FL (9.6-12.0); Monocytes % 4.8 % (1.7-12.7); Neutrophils % 88.3 % (38.7-73.9); Platelet Count 321 T/CUMM (130-400); Red Blood Count 3.73 MC/CUMM (3.8-5.5); Red Cell Distribution Width 15.8 % (9.3-17.3); White Blood Count 8.9 T/CUMM (4-12)
[2021-05-06 06:32] LABS: Albumin 3.2 G/DL (3.4-5.0); Bilirubin,Total 1.1 MG/DL (0.2-1.0); Calcium 9.1 MG/DL (8.5-10.1); Osmolality,Calculated 286.5 MOS/KG (273-304); Potassium 4.2 MMOL/L (3.5-5.1); Total Protein 6.2 G/DL (6.4-8.2)
[2021-05-06] MEDS: POLYVINYL ALCOHOL 1.4% OPH SOLN 15 ML BOTTLE BOTH EYES SCH ×4 (10:18→23:05)
[2021-05-06] MEDS: NYSTATIN CREAM 15 GM TUBE TOP SCH ×2 (10:18→23:05)
[2021-05-06] MEDS: ZINC OXIDE PASTE 113 GM TUBE TOP SCH ×3 (10:18→23:05)
[2021-05-06] MEDS: POTASSIUM CHLORIDE 20 MEQ/15 ML UDCUP PO SCH ×2 (10:19→23:05)
[2021-05-06] MEDS: PANTOPRAZOLE 40 MG TABLET PO SCH (10:20)
[2021-05-06] MEDS: MAGNESIUM OXIDE 400 MG TABLET PO SCH (10:20)
[2021-05-06] MEDS: DOCUSATE SODIUM 100 MG CAPSULE PO SCH (10:20)
[2021-05-06] MEDS: METOPROLOL SUCCINATE XL 100 MG TABLET PO SCH (10:21)
[2021-05-06] MEDS: DOXAZOSIN 4 MG TABLET PO SCH (10:21)
[2021-05-06] MEDS: BISACODYL 5 MG TABLET PO SCH (10:21)
[2021-05-06] MEDS: RIVAROXABAN 15 MG TABLET PO SCH (10:21)
[2021-05-06] MEDS: METOPROLOL SUCCINATE XL 25 MG TABLET PO SCH (10:21)
[2021-05-06] MEDS: ASPIRIN 325 MG TABLET PO SCH (10:21)
[2021-05-06] MEDS: FERROUS SULFATE 325 MG TABLET PO SCH ×2 (10:21→18:08)
[2021-05-06] MEDS: traMADol 50 MG TABLET PO SCH ×4 (10:22→23:05)
[2021-05-06] MEDS: SERTRALINE 25 MG TABLET PO SCH (10:22)
[2021-05-06] MEDS: FUROSEMIDE 40 MG/4 ML VIAL IV SCH (10:23)
[2021-05-06] MEDS: methylPREDNISolone SOD SUC 40 MG/1 ML VIAL IV SCH ×3 (10:23→22:59)
[2021-05-06] MEDS: PROTEIN HYDROLYSATE MILK PO SCH (10:24)
[2021-05-06] MEDS: FUROSEMIDE 40 MG TABLET PO SCH (10:24)
[2021-05-06] MEDS: AZELASTINE 0.05% BOTH EYES SCH (10:28)
[2021-05-06] MEDS ORDERED: AZITHROMYCIN INJ 500 MG in SODIUM CHLORIDE 0.9% 250 ML IV SCH (15:30)
[2021-05-06] MEDS: LACTULOSE 20 GM/30 ML UDCUP PO SCH (18:11)
[2021-05-06] MEDS: NYSTATIN 500,000 UNIT/5 ML UDCUP SWISH/SWAL SCH ×2 (18:11→23:04)
[2021-05-06] MEDS: MELATONIN 3 MG TABLET PO SCH (23:02)
[2021-05-07] MEDS: ALBUTEROL/IPRATROPIUM 3 ML NEB RESP TX SCH ×6 (02:00→23:13)
[2021-05-07] MEDS: AZELASTINE 0.05% BOTH EYES SCH ×3 (02:02→20:35)
[2021-05-07] MEDS: LACTULOSE 20 GM/30 ML UDCUP PO SCH ×3 (02:03→20:34)
[2021-05-07] MEDS: BISACODYL 5 MG TABLET PO SCH ×3 (02:03→20:34)
[2021-05-07] MEDS: DOCUSATE SODIUM 100 MG CAPSULE PO SCH ×3 (02:03→20:35)
[2021-05-07] MEDS: SALIVA SUBSTITUTE COMBO NO 9 SWISH/SPIT SCH ×4 (02:04→16:52)
[2021-05-07] MEDS: PROTEIN HYDROLYSATE MILK PO SCH ×3 (02:04→20:35)
[2021-05-07] MEDS: ALBUMIN 25% 25 GM/100 ML VIAL IV SCH ×3 (02:15→17:11)
[2021-05-07 04:33] LABS: Hematocrit 29.2 VOL% (35.7-47.0); Hemoglobin 9.1 GM/DL (12.0-16.0); Immature Granulocytes % 0.7 %; Immature Granulocytes Absolute 0.06 #; Lymphocytes # 0.3 10*3/uL (1.4-4.0); Lymphocytes % 3.6 % (21.3-54.2); Mean Corpuscular HGB Conc 31.2 GM/DL (32-36); Mean Corpuscular Volume 92.1 FL (87-102); Mean Platelet Volume 9.8 FL (9.6-12.0); Monocytes % 3.6 % (1.7-12.7); Neutrophils % 92.1 % (38.7-73.9); Platelet Count 245 T/CUMM (130-400); Red Blood Count 3.17 MC/CUMM (3.8-5.5); Red Cell Distribution Width 16.1 % (9.3-17.3); White Blood Count 8.7 T/CUMM (4-12)
[2021-05-07 04:52] LABS: Hypochromasia 1+; Lymphocytes 2 % (20-55); Microcytosis 1+; Platelet Estimate Adequate; Segmented Neutrophils 97 % (50-85); Total Cells Counted 100
[2021-05-07 05:01] LABS: Calcium 9.3 MG/DL (8.5-10.1)
[2021-05-07 05:05] LABS: Osmolality,Calculated 284.7 MOS/KG (273-304); Potassium 4.2 MMOL/L (3.5-5.1)
[2021-05-07] MEDS: FUROSEMIDE 40 MG/4 ML VIAL IV SCH (09:53)
[2021-05-07] MEDS: methylPREDNISolone SOD SUC 40 MG/1 ML VIAL IV SCH ×3 (09:54→20:36)
[2021-05-07] MEDS: ZINC OXIDE PASTE 113 GM TUBE TOP SCH ×3 (09:59→20:34)
[2021-05-07] MEDS: MAGNESIUM OXIDE 400 MG TABLET PO SCH (10:08)
[2021-05-07] MEDS: SERTRALINE 25 MG TABLET PO SCH (10:08)
[2021-05-07] MEDS: METOPROLOL SUCCINATE XL 25 MG TABLET PO SCH (10:08)
[2021-05-07] MEDS: ASPIRIN 325 MG TABLET PO SCH (10:08)
[2021-05-07] MEDS: DOXAZOSIN 4 MG TABLET PO SCH (10:08)
[2021-05-07] MEDS: PANTOPRAZOLE 40 MG TABLET PO SCH (10:09)
[2021-05-07] MEDS: RIVAROXABAN 15 MG TABLET PO SCH (10:09)
[2021-05-07] MEDS: FERROUS SULFATE 325 MG TABLET PO SCH ×2 (10:09→17:59)
[2021-05-07] MEDS: NYSTATIN 500,000 UNIT/5 ML UDCUP SWISH/SWAL SCH ×4 (10:09→20:34)
[2021-05-07] MEDS: METOPROLOL SUCCINATE XL 100 MG TABLET PO SCH (10:09)
[2021-05-07] MEDS: POLYVINYL ALCOHOL 1.4% OPH SOLN 15 ML BOTTLE BOTH EYES SCH ×4 (10:10→20:35)
[2021-05-07] MEDS: NYSTATIN CREAM 15 GM TUBE TOP SCH ×2 (10:14→20:34)
[2021-05-07] MEDS: traMADol 50 MG TABLET PO SCH ×4 (10:26→20:33)
[2021-05-07] MEDS: POTASSIUM CHLORIDE 20 MEQ/15 ML UDCUP PO SCH ×2 (10:43→20:35)
[2021-05-07] MEDS ORDERED: SKIN HEALING OINT (AQUAPHOR) 50 GM TUBE TOP PRN (12:58)
[2021-05-07] MEDS: SODIUM CHLORIDE 0.9% 1,000 ML IV SCH (17:59)
[2021-05-07] MEDS ORDERED: MICAFUNGIN 150 MG in SODIUM CHLORIDE 0.9% 100 ML IV SCH (18:00)
[2021-05-07] MEDS: MELATONIN 3 MG TABLET PO SCH (20:33)
[2021-05-08] MEDS: ALBUTEROL/IPRATROPIUM 3 ML NEB RESP TX SCH ×6 (02:55→23:20)
[2021-05-08] MEDS: SALIVA SUBSTITUTE COMBO NO 9 SWISH/SPIT SCH ×5 (03:11→22:23)
[2021-05-08] MEDS: ALBUMIN 25% 25 GM/100 ML VIAL IV SCH ×3 (03:17→19:29)
[2021-05-08 05:39] LABS: Hematocrit 25.5 VOL% (35.7-47.0); Hemoglobin 7.8 GM/DL (12.0-16.0); Immature Granulocytes % 0.6 %; Immature Granulocytes Absolute 0.04 #; Lymphocytes # 0.4 10*3/uL (1.4-4.0); Mean Corpuscular HGB Conc 30.6 GM/DL (32-36); Mean Corpuscular Volume 94.4 FL (87-102); Mean Platelet Volume 10.2 FL (9.6-12.0); Monocytes % 5.1 % (1.7-12.7); Neutrophils % 89.3 % (38.7-73.9); Platelet Count 211 T/CUMM (130-400); Red Cell Distribution Width 16.4 % (9.3-17.3); White Blood Count 7.2 T/CUMM (4-12)
[2021-05-08 05:56] LABS: Calcium 9.7 MG/DL (8.5-10.1); Osmolality,Calculated 287.5 MOS/KG (273-304); Potassium 4.3 MMOL/L (3.5-5.1)
[2021-05-08 06:06] LABS: Albumin 4.2 G/DL (3.4-5.0); Bilirubin,Total 1.4 MG/DL (0.2-1.0); Calcium 9.7 MG/DL (8.5-10.1); Osmolality,Calculated 291.3 MOS/KG (273-304); Potassium 4.3 MMOL/L (3.5-5.1); Thyroid Stimulating Hormone 1.79 uIU/ml (0.358-3.74); Total Protein 6.3 G/DL (6.4-8.2)
[2021-05-08] MEDS: NYSTATIN 500,000 UNIT/5 ML UDCUP SWISH/SWAL SCH ×4 (09:12→21:09)
[2021-05-08] MEDS: MAGNESIUM OXIDE 400 MG TABLET PO SCH (09:12)
[2021-05-08] MEDS: METOPROLOL SUCCINATE XL 25 MG TABLET PO SCH (09:16)
[2021-05-08] MEDS: SERTRALINE 25 MG TABLET PO SCH (09:16)
[2021-05-08] MEDS: FERROUS SULFATE 325 MG TABLET PO SCH ×2 (09:16→17:41)
[2021-05-08] MEDS: ASPIRIN 325 MG TABLET PO SCH (09:16)
[2021-05-08] MEDS: METOPROLOL SUCCINATE XL 100 MG TABLET PO SCH (09:16)
[2021-05-08] MEDS: PANTOPRAZOLE 40 MG TABLET PO SCH (09:16)
[2021-05-08] MEDS: traMADol 50 MG TABLET PO SCH ×4 (09:18→21:08)
[2021-05-08] MEDS: POTASSIUM CHLORIDE 20 MEQ/15 ML UDCUP PO SCH ×2 (09:18→21:07)
[2021-05-08] MEDS: POLYVINYL ALCOHOL 1.4% OPH SOLN 15 ML BOTTLE BOTH EYES SCH ×4 (09:19→21:10)
[2021-05-08] MEDS: DOXAZOSIN 4 MG TABLET PO SCH (09:37)
[2021-05-08] MEDS: AZELASTINE 0.05% BOTH EYES SCH ×2 (09:37→21:00)
[2021-05-08] MEDS: SODIUM HYPOCHLORITE 0.5% TOP SCH (09:38)
[2021-05-08] MEDS: PROTEIN HYDROLYSATE MILK PO SCH ×2 (09:38→21:03)
[2021-05-08] MEDS: NYSTATIN CREAM 15 GM TUBE TOP SCH ×3 (09:39→21:12)
[2021-05-08] MEDS: ZINC OXIDE PASTE 113 GM TUBE TOP SCH ×2 (09:43→16:51)
[2021-05-08] MEDS: DOCUSATE SODIUM 100 MG CAPSULE PO SCH ×2 (09:44→21:10)
[2021-05-08] MEDS: LACTULOSE 20 GM/30 ML UDCUP PO SCH ×2 (09:44→20:53)
[2021-05-08] MEDS: BISACODYL 5 MG TABLET PO SCH ×2 (09:44→20:54)
[2021-05-08] MEDS: methylPREDNISolone SOD SUC 40 MG/1 ML VIAL IV SCH ×3 (10:13→21:05)
[2021-05-08] MEDS: FUROSEMIDE 40 MG/4 ML VIAL IV SCH (10:13)
[2021-05-08] MEDS ORDERED: KETOROLAC 30 MG/1 ML VIAL IV ONE (10:57)
[2021-05-08] MEDS: RIVAROXABAN 15 MG TABLET PO SCH (11:27)
[2021-05-08] MEDS: SODIUM CHLORIDE 0.9% 1,000 ML IV SCH (11:28)
[2021-05-08 14:14] LABS: Hematocrit 25.6 VOL% (35.7-47.0); Hemoglobin 7.6 GM/DL (12.0-16.0); Immature Granulocytes % 0.8 %; Immature Granulocytes Absolute 0.07 #; Lymphocytes # 0.2 10*3/uL (1.4-4.0); Lymphocytes % 2.6 % (21.3-54.2); Mean Corpuscular HGB Conc 29.7 GM/DL (32-36); Mean Corpuscular Volume 95.9 FL (87-102); Mean Platelet Volume 9.9 FL (9.6-12.0); Monocytes % 8.2 % (1.7-12.7); Neutrophils % 88.4 % (38.7-73.9); Platelet Count 215 T/CUMM (130-400); Red Blood Count 2.67 MC/CUMM (3.8-5.5); Red Cell Distribution Width 16.4 % (9.3-17.3); White Blood Count 9.2 T/CUMM (4-12)
[2021-05-08 15:01] LABS: Lymphocytes 2 % (20-55); Macrocytosis 1+; Segmented Neutrophils 90 % (50-85); Total Cells Counted 100
[2021-05-08 15:02] LABS: Hypochromasia 1+; Platelet Estimate Normal
[2021-05-08] MEDS ORDERED: FLUCONAZOLE INJ 200 MG/100 ML PREMIX IV SCH (15:30)
[2021-05-08] MEDS: MICAFUNGIN 100 MG, MICAFUNGIN 50 MG in SODIUM CHLORIDE 0.9% 100 ML IV SCH (17:44)
[2021-05-08] MEDS: MELATONIN 3 MG TABLET PO SCH (21:07)
[2021-05-09] MEDS: ALBUMIN 25% 25 GM/100 ML VIAL IV SCH ×3 (02:59→23:18)
[2021-05-09] MEDS: ALBUTEROL/IPRATROPIUM 3 ML NEB RESP TX SCH ×6 (03:02→23:16)
[2021-05-09] MEDS: SALIVA SUBSTITUTE COMBO NO 9 SWISH/SPIT SCH ×4 (04:25→23:20)
[2021-05-09 04:52] LABS: Hematocrit 25.2 VOL% (35.7-47.0); Hemoglobin 7.4 GM/DL (12.0-16.0); Immature Granulocytes Absolute 0.08 #; Lymphocytes # 0.3 10*3/uL (1.4-4.0); Lymphocytes % 3.8 % (21.3-54.2); Mean Corpuscular HGB Conc 29.4 GM/DL (32-36); Mean Corpuscular Volume 96.9 FL (87-102); Monocytes % 7.6 % (1.7-12.7); Neutrophils % 87.6 % (38.7-73.9); Platelet Count 220 T/CUMM (130-400); Red Cell Distribution Width 16.5 % (9.3-17.3); White Blood Count 7.9 T/CUMM (4-12)
[2021-05-09 05:02] LABS: Calcium 10.3 MG/DL (8.5-10.1); Osmolality,Calculated 292.5 MOS/KG (273-304); Potassium 4.6 MMOL/L (3.5-5.1)
[2021-05-09 05:05] LABS: Bilirubin,Total 0.8 MG/DL (0.2-1.0); Calcium 10.1 MG/DL (8.5-10.1); Osmolality,Calculated 292.5 MOS/KG (273-304); Potassium 4.6 MMOL/L (3.5-5.1); Total Protein 6.7 G/DL (6.4-8.2)
[2021-05-09 06:16] LABS: Lymphocytes 2 % (20-55); Platelet Estimate Normal; Segmented Neutrophils 94 % (50-85); Total Cells Counted 100
[2021-05-09 06:22] LABS: Hypochromasia Slight
[2021-05-09 06:25] LABS: Anisocytosis Slight; Macrocytosis Slight
[2021-05-09] MEDS: methylPREDNISolone SOD SUC 40 MG/1 ML VIAL IV SCH ×3 (10:00→21:21)
[2021-05-09] MEDS: FUROSEMIDE 40 MG/4 ML VIAL IV SCH (10:00)
[2021-05-09] MEDS: POLYVINYL ALCOHOL 1.4% OPH SOLN 15 ML BOTTLE BOTH EYES SCH ×4 (10:18→21:00)
[2021-05-09] MEDS: SERTRALINE 25 MG TABLET PO SCH (10:33)
[2021-05-09] MEDS: POTASSIUM CHLORIDE 20 MEQ/15 ML UDCUP PO SCH ×2 (10:33→21:21)
[2021-05-09] MEDS: FERROUS SULFATE 325 MG TABLET PO SCH ×2 (10:34→18:14)
[2021-05-09] MEDS: PANTOPRAZOLE 40 MG TABLET PO SCH (10:34)
[2021-05-09] MEDS: NYSTATIN 500,000 UNIT/5 ML UDCUP SWISH/SWAL SCH ×4 (10:34→21:19)
[2021-05-09] MEDS: METOPROLOL SUCCINATE XL 25 MG TABLET PO SCH (10:34)
[2021-05-09] MEDS: MAGNESIUM OXIDE 400 MG TABLET PO SCH (10:34)
[2021-05-09] MEDS: METOPROLOL SUCCINATE XL 100 MG TABLET PO SCH (10:35)
[2021-05-09] MEDS: traMADol 50 MG TABLET PO SCH ×4 (10:47→21:20)
[2021-05-09] MEDS: AZELASTINE 0.05% BOTH EYES SCH ×2 (10:49→23:19)
[2021-05-09] MEDS: DOCUSATE SODIUM 100 MG CAPSULE PO SCH ×2 (10:49→21:21)
[2021-05-09] MEDS: LACTULOSE 20 GM/30 ML UDCUP PO SCH ×2 (10:49→21:21)
[2021-05-09] MEDS: BISACODYL 5 MG TABLET PO SCH ×2 (10:50→21:20)
[2021-05-09] MEDS: PROTEIN HYDROLYSATE MILK PO SCH ×2 (10:50→23:20)
[2021-05-09] MEDS: RIVAROXABAN 15 MG TABLET PO SCH (10:51)
[2021-05-09] MEDS: NYSTATIN CREAM 15 GM TUBE TOP SCH ×2 (11:01→21:00)
[2021-05-09] MEDS: DOXAZOSIN 4 MG TABLET PO SCH (11:01)
[2021-05-09] MEDS: ASPIRIN 325 MG TABLET PO SCH (11:01)
[2021-05-09] MEDS ORDERED: AZITHROMYCIN 250 MG TABLET PO ONE (14:00)
[2021-05-09] MEDS: cefTRIAXone 1,000 MG in SODIUM CHLORIDE 0.9% 100 ML IV SCH ×2 (14:10→14:20)
[2021-05-09] MEDS: MICAFUNGIN 100 MG, MICAFUNGIN 50 MG in SODIUM CHLORIDE 0.9% 100 ML IV SCH ×2 (17:00→18:15)
[2021-05-09] MEDS: MELATONIN 3 MG TABLET PO SCH (21:20)
[2021-05-10] MEDS: ALBUMIN 25% 25 GM/100 ML VIAL IV SCH ×2 (02:34→12:58)
[2021-05-10] MEDS: ALBUTEROL/IPRATROPIUM 3 ML NEB RESP TX SCH ×6 (04:13→23:20)
[2021-05-10] MEDS: SALIVA SUBSTITUTE COMBO NO 9 SWISH/SPIT SCH ×3 (05:03→17:24)
[2021-05-10 06:48] LABS: Hematocrit 23.8 VOL% (35.7-47.0); Hemoglobin 6.8 GM/DL (12.0-16.0); Immature Granulocytes Absolute 0.13 #; Lymphocytes # 0.2 10*3/uL (1.4-4.0); Lymphocytes % 1.4 % (21.3-54.2); Mean Corpuscular HGB Conc 28.6 GM/DL (32-36); Mean Corpuscular Volume 97.5 FL (87-102); Mean Platelet Volume 10.5 FL (9.6-12.0); Monocytes % 8.3 % (1.7-12.7); Neutrophils % 89.3 % (38.7-73.9); Platelet Count 215 T/CUMM (130-400); Red Blood Count 2.44 MC/CUMM (3.8-5.5); Red Cell Distribution Width 16.5 % (9.3-17.3); White Blood Count 13.5 T/CUMM (4-12)
[2021-05-10 07:02] LABS: Calcium 10.4 MG/DL (8.5-10.1); Osmolality,Calculated 298.3 MOS/KG (273-304); Potassium 4.7 MMOL/L (3.5-5.1)
[2021-05-10 07:09] LABS: Hypochromasia 2+; Lymphocytes 1 % (20-55); Microcytosis 1+; Platelet Estimate Adequate; Segmented Neutrophils 93 % (50-85); Total Cells Counted 100
[2021-05-10] MEDS ORDERED: SODIUM CHLORIDE 0.9% 1,000 ML IV PRN (07:34)
[2021-05-10] MEDS: AZITHROMYCIN 250 MG TABLET PO SCH (08:16)
[2021-05-10] MEDS: METOPROLOL SUCCINATE XL 100 MG TABLET PO SCH (08:16)
[2021-05-10] MEDS: DOCUSATE SODIUM 100 MG CAPSULE PO SCH ×2 (08:17→21:14)
[2021-05-10] MEDS: METOPROLOL SUCCINATE XL 25 MG TABLET PO SCH (08:17)
[2021-05-10] MEDS: SERTRALINE 25 MG TABLET PO SCH (08:17)
[2021-05-10] MEDS: RIVAROXABAN 15 MG TABLET PO SCH (08:17)
[2021-05-10] MEDS: BISACODYL 5 MG TABLET PO SCH ×2 (08:17→21:14)
[2021-05-10] MEDS: traMADol 50 MG TABLET PO SCH ×4 (08:17→21:15)
[2021-05-10] MEDS: FUROSEMIDE 40 MG/4 ML VIAL IV SCH (08:18)
[2021-05-10] MEDS: POLYVINYL ALCOHOL 1.4% OPH SOLN 15 ML BOTTLE BOTH EYES SCH ×4 (08:18→21:14)
[2021-05-10] MEDS: LACTULOSE 20 GM/30 ML UDCUP PO SCH ×2 (08:18→21:14)
[2021-05-10] MEDS: DOXAZOSIN 4 MG TABLET PO SCH (08:18)
[2021-05-10] MEDS: FERROUS SULFATE 325 MG TABLET PO SCH ×2 (08:18→17:24)
[2021-05-10] MEDS: NYSTATIN 500,000 UNIT/5 ML UDCUP SWISH/SWAL SCH ×4 (08:19→21:15)
[2021-05-10] MEDS: PANTOPRAZOLE 40 MG TABLET PO SCH (08:30)
[2021-05-10] MEDS: methylPREDNISolone SOD SUC 40 MG/1 ML VIAL IV SCH ×3 (08:30→20:47)
[2021-05-10] MEDS: AZELASTINE 0.05% BOTH EYES SCH ×2 (08:30→21:14)
[2021-05-10] MEDS: SODIUM HYPOCHLORITE 0.5% TOP SCH (08:30)
[2021-05-10] MEDS: POTASSIUM CHLORIDE 20 MEQ/15 ML UDCUP PO SCH ×2 (08:30→21:15)
[2021-05-10] MEDS: MAGNESIUM OXIDE 400 MG TABLET PO SCH (08:30)
[2021-05-10] MEDS: PROTEIN HYDROLYSATE MILK PO SCH ×2 (08:30→21:15)
[2021-05-10] MEDS: NYSTATIN CREAM 15 GM TUBE TOP SCH ×2 (08:30→21:15)
[2021-05-10] MEDS ORDERED: FUROSEMIDE 40 MG/4 ML VIAL IV ONE (14:28)
[2021-05-10] MEDS: MORPHINE 4 MG/1 ML VIAL IV PRN ×4 (15:01→22:36)
[2021-05-10] MEDS: cefTRIAXone 1,000 MG in SODIUM CHLORIDE 0.9% 100 ML IV SCH (15:07)
[2021-05-10] MEDS ORDERED: NIFEdipine 10 MG CAPSULE PO PRN (17:36)
[2021-05-10] MEDS ORDERED: LORazepam 2 MG/1 ML VIAL ONE (18:10)
[2021-05-10] MEDS: LORazepam 2 MG/1 ML VIAL IV PRN ×3 (18:22→22:37)
[2021-05-10] MEDS: MICAFUNGIN 100 MG, MICAFUNGIN 50 MG in SODIUM CHLORIDE 0.9% 100 ML IV SCH (18:37)
[2021-05-10 19:48] LABS: Hemoglobin 10.3 GM/DL (12.0-16.0)
[2021-05-10] MEDS: MELATONIN 3 MG TABLET PO SCH (21:14)
[2021-05-11] MEDS: ALBUTEROL/IPRATROPIUM 3 ML NEB RESP TX SCH ×5 (02:06→20:26)
[2021-05-11] MEDS: MORPHINE 4 MG/1 ML VIAL IV PRN (05:17)
[2021-05-11] MEDS: LORazepam 2 MG/1 ML VIAL IV PRN (05:17)
[2021-05-11] MEDS: SALIVA SUBSTITUTE COMBO NO 9 SWISH/SPIT SCH ×4 (05:58→23:07)
[2021-05-11 06:15] LABS: Basophils % 0.1 % (0.0-0.8); Hematocrit 36.3 VOL% (35.7-47.0); Hemoglobin 10.9 GM/DL (12.0-16.0); Immature Granulocytes % 0.6 %; Immature Granulocytes Absolute 0.08 #; Lymphocytes # 0.2 10*3/uL (1.4-4.0); Lymphocytes % 1.8 % (21.3-54.2); Mean Corpuscular Volume 94.3 FL (87-102); Mean Platelet Volume 11.5 FL (9.6-12.0); Neutrophils % 92.5 % (38.7-73.9); Platelet Count 186 T/CUMM (130-400); Red Blood Count 3.85 MC/CUMM (3.8-5.5); Red Cell Distribution Width 18.3 % (9.3-17.3); White Blood Count 12.6 T/CUMM (4-12)
[2021-05-11 06:38] LABS: Hypochromasia 1+; Lymphocytes 3 % (20-55); Microcytosis 1+; Platelet Estimate Adequate; Segmented Neutrophils 91 % (50-85); Total Cells Counted 100
[2021-05-11] MEDS: FERROUS SULFATE 325 MG TABLET PO SCH (08:36)
[2021-05-11] MEDS: NYSTATIN 500,000 UNIT/5 ML UDCUP SWISH/SWAL SCH ×2 (08:37→14:02)
[2021-05-11] MEDS: DOCUSATE SODIUM 100 MG CAPSULE PO SCH (08:37)
[2021-05-11] MEDS: AZELASTINE 0.05% BOTH EYES SCH ×2 (08:37→20:41)
[2021-05-11] MEDS: LACTULOSE 20 GM/30 ML UDCUP PO SCH (08:37)
[2021-05-11] MEDS: BISACODYL 5 MG TABLET PO SCH (08:37)
[2021-05-11] MEDS: MAGNESIUM OXIDE 400 MG TABLET PO SCH (08:37)
[2021-05-11] MEDS: DOXAZOSIN 4 MG TABLET PO SCH (08:37)
[2021-05-11] MEDS: METOPROLOL SUCCINATE XL 100 MG TABLET PO SCH (08:38)
[2021-05-11] MEDS: METOPROLOL SUCCINATE XL 25 MG TABLET PO SCH (08:38)
[2021-05-11] MEDS: PANTOPRAZOLE 40 MG TABLET PO SCH (08:38)
[2021-05-11] MEDS: PROTEIN HYDROLYSATE MILK PO SCH (08:38)
[2021-05-11] MEDS: POTASSIUM CHLORIDE 20 MEQ/15 ML UDCUP PO SCH (08:38)
[2021-05-11] MEDS: traMADol 50 MG TABLET PO SCH ×4 (08:39→20:41)
[2021-05-11] MEDS: SERTRALINE 25 MG TABLET PO SCH (08:39)
[2021-05-11] MEDS: AZITHROMYCIN 250 MG TABLET PO SCH (08:39)
[2021-05-11] MEDS: NYSTATIN CREAM 15 GM TUBE TOP SCH (11:15)
[2021-05-11] MEDS: POLYVINYL ALCOHOL 1.4% OPH SOLN 15 ML BOTTLE BOTH EYES SCH ×4 (11:15→21:22)
[2021-05-11] MEDS: methylPREDNISolone SOD SUC 40 MG/1 ML VIAL IV SCH ×3 (11:20→21:22)
[2021-05-11] MEDS ORDERED: BUDESONIDE/FORMOTEROL 160-4.5 INHALER 6 GM INH SCH (13:13)
[2021-05-11] MEDS ORDERED: NITROGLYCERIN SL 0.4 MG TABLET SL PRN (13:13)
[2021-05-11] MEDS ORDERED: ALBUTEROL 2.5 MG/3 ML NEB RESP TX PRN (13:19)
[2021-05-11] MEDS ORDERED: BUDESONIDE/FORMOTEROL 160-4.5 INHALER 6 GM INH PRN (13:30)
[2021-05-11] MEDS: MICAFUNGIN 100 MG, MICAFUNGIN 50 MG in SODIUM CHLORIDE 0.9% 100 ML IV SCH (17:14)
[2021-05-11] MEDS: MELATONIN 3 MG TABLET PO SCH (20:41)
[2021-05-12] MEDS: ALBUTEROL/IPRATROPIUM 3 ML NEB RESP TX SCH ×3 (00:54→06:57)
[2021-05-12] MEDS: SALIVA SUBSTITUTE COMBO NO 9 SWISH/SPIT SCH ×2 (03:45→11:51)
[2021-05-12] MEDS ORDERED: FLUCONAZOLE 200 MG TABLET PO SCH (09:00)
[2021-05-12] MEDS: AZELASTINE 0.05% BOTH EYES SCH (10:12)
[2021-05-12] MEDS: POLYVINYL ALCOHOL 1.4% OPH SOLN 15 ML BOTTLE BOTH EYES SCH (10:12)
[2021-05-12] MEDS: PANTOPRAZOLE 40 MG TABLET PO SCH (10:13)
[2021-05-12] MEDS: METOPROLOL SUCCINATE XL 25 MG TABLET PO SCH (10:13)
[2021-05-12] MEDS: METOPROLOL SUCCINATE XL 100 MG TABLET PO SCH (10:14)
[2021-05-12] MEDS: SERTRALINE 25 MG TABLET PO SCH (10:14)
[2021-05-12] MEDS: traMADol 50 MG TABLET PO SCH (10:14)
[2021-05-12] MEDS: SODIUM HYPOCHLORITE 0.5% TOP SCH (10:15)
[2021-05-12] MEDS: methylPREDNISolone SOD SUC 40 MG/1 ML VIAL IV SCH (11:49)
[2021-05-12] MEDS: METOPROLOL TARTRATE 5 MG/5 ML VIAL IV SCH ×2 (13:36→18:25)
[2021-05-13] MEDS: METOPROLOL TARTRATE 5 MG/5 ML VIAL IV SCH ×2 (00:59→05:02)
[2021-05-13 08:28] VITALS: BP 44/31
== END 2021-05-13 11:20 | disposition expired | DRG 843 ==
LOC: EDUNIT# → EDBD → N.EDINP 21:54 → N.ED 21:54 → N.TELEN 05-05 15:23 → SUATTDRO 05-05 16:39 → N.CC 05-10 10:06 → N.4E 05-11 17:47
PROVIDERS: ADMIT Internal Medicine; ATTEND Family Medicine